=== PATIENT | female | born 1955 | race Caucasian/White ===

== ENCOUNTER 2024-06-16 13:19 | Outpatient (CLI) | payer MEDICARE, SELFPAY ==
--- OUTSIDE RECORDS SUMMARY | 2024-06-16 13:40 | XMS_ITS | Clinical Summary ---
Author Organization [facility] Care Team Providers Care Web Design Instructor Name Role Phone No, Physician Primary Care Provider [phone] Allergies Active Allergy Reactions Criticality Noted Date Comments Clarithromycin Hives Medium 10/15/2020 Iodine Hives Medium 10/15/2020 Oxybutynin Unknown 11/01/2020 Sulfa (Sulfonamide Antibiotics) Anaphylaxis,Unknown High 11/02/2018 Medications ALPRAZolam (XANAX) 1 mg tablet alprazolam 1 mg tablet TAKE 1 TABLET BY MOUTH TWICE DAILY NEEDED 12/14/19 19 Active aspirin 81 mg enteric coated tablet Take 1 tablet every day by oral route. Active dicyclomine (BENTYL) 20 mg tablet dicyclomine 20 mg tablet Take 1 tablet 4 times a day by oral route as directed for 90 days. Active famotidine (PEPCID) 40 mg tablet Take 1 tablet (40 mg total) by mouth daily 05/31/19 21 Active fenofibrate (TRIGLIDE) 160 mg tablet Take 1 tablet (160 mg total) by mouth daily 10/21/19 19 Active fluticasone-umecli din-vilanter (TRELEGY ELLIPTA) 100-62.5-25 mcg inhaler INHALE 1 PUFF BY MOUTH EVERY DAY 12/14/19 19 Active hydrALAZINE (APRESOLINE) 25 mg tablet Take 1 tablet (25 mg total) by mouth 2 (two) times a day 01/20/20 19 Active levothyroxine (SYNTHROID) 75 mcg tablet levothyroxine 75 mcg tablet TAKE 1 TABLET BY MOUTH EVERY DAY 11/10/19 19 Active lisinopriL (PRINIVIL,ZESTRIL) 40 mg tablet lisinopril 40 mg tablet TAKE 1 TABLET BY MOUTH EVERY DAY 11/25/19 19 Active PARoxetine (PAXIL) 40 mg tablet paroxetine 40 mg tablet TAKE 1 TABLET BY MOUTH EVERY DAY 10/21/19 19 Active potassium chloride ER 10 mEq CR tablet Take 1 tablet/capsule (10 mEq total) by mouth 2 (two) times a day 12/07/19 21 Active travoprost (TRAVATAN Z) 0.004 % drops Administer 1 drop into both eyes nightly Active pregabalin (LYRICA) 75 mg capsuleIndications :Left leg pain Take 1 capsule (75 mg total) by mouth 2 (two) times a day 270 capsule 2 12/14/19 Active amLODIPine (NORVASC) 10 mg tablet 03/23/19 24 Active cyclobenzaprine (FLEXERIL) 10 mg tablet 03/23/19 24 Active gabapentin (NEURONTIN) 600 mg tablet 03/23/19 24 Active ibuprofen (ADVIL,MOTRIN) 600 mg tablet 03/23/19 24 Active losartan (COZAAR) 100 mg tablet 03/23/19 24 Active Relistor 150 mg tablet 03/23/19 24 Active ondansetron ODT (ZOFRAN-ODT) 4 mg disintegrating tablet 03/09/19 24 Active oxyCODONE-acetamin ophen (PERCOCET) 7.5-325 mg per tablet 03/17/19 24 Active albuterol HFA (ProAir HFA) 90 mcg/actuation inhalerIndications :COPD with acute exacerbation (HCC) Inhale 2 puffs every 6 (six) hours as needed for wheezing 1 each 01/07/20 24 Active benzonatate (TESSALON) 100 mg capsuleIndications :Cough Take 1 capsule (100 mg total) by mouth 3 (three) times a day as needed for cough 42 capsule 01/07/20 24 Active Active Problems Problem Noted Date Diagnosed Date Left leg pain 12/13/2020 BMI 23.0-23.9, adult 12/13/2020 Screening for colon cancer 12/13/2020 Chronic bilateral low back pain without sciatica 12/13/2020 Overview (12/13/2020): MRI recommends doing Ct of lumbar spine due to possible sacral fracture seen. will order for completion. Spinal stenosis at L4-L5 level 11/04/2020 AARON on CPAP 10/20/2020 Anxiety 04/03/2020 Cardiac arrhythmia 01/19/2019 Neuropathy 12/13/2018 Nicotine dependence with current use 12/13/2018 Glaucoma 10/18/2018 Irritable bowel syndrome with diarrhea 9 Chronic obstructive pulmonary disease 06/15/2018 Hyperlipidemia 06/15/2018 Hypertension 06/15/2018 Hypothyroidism 06/15/2018 Vitamin D deficiency 06/15/2018 History of Hodgkin's lymphoma 07/31/1993 Immunizations Immunization Administration Dates Next Due Hep B Vaccine 02/05/2017,11/28/2016 Influenza, Quadrivalent, Hig h Dose, Preservative Free, Intrr 12/13/2020 Influenza, Quadrivalent, Split, Intramuscular Influenza, Quadrivalent, Spl it, Preservative Free, Intramuscular 12/12/2019,12/13/2014 Influenza, Trivalent, Preservative Free, Intramu scular 02/14/2013 Moderna SARS-CoV-2 Monovalent Vaccination (12+ Y RS) 07/03/2020 Pfizer SARS-CoV-2 Monovalent Vaccination (12+ Yrs) PURPLE 10/15/2020() Pneumococcal Conjugate PCV 13 04/08/2016 Tdap 09/30/2014 Surgical History Surgery Date Site/Laterality Comments ROTATOR CUFF REPAIR CHOLECYSTECTOMY HYSTERECTOMY APPENDECTOMY INNER EAR SURGERY SPINE SURGERY Medical History Medical History Date Comments Hypertension COPD (chronic obstructive pulmonary disease) (HC C) Hypothyroid Glaucoma Family History Medical History Relation Name Comments Cancer Brother young age Father Cancer Mother Hypertension Mother Relation Name Status Comments Brother Father Mother Social History Tobacco Use Types Packs/Day Years Used Date Smoking Tobacco: Every Day Cigarettes 0.5 40 Smokeless Tobacco: Never Tobacco Cessation:Ready to Q uit: Not Asked; Counseling Given: Not Answered Alcohol Use Standard Drinks/Week Comments Not Currently 0 (1 standard drink = 0.6 oz pur e alcohol) AUDIT-C Answer Date Recorded Q1: How often do you have a drink containing alc ohol? Never 12/13/2020 Average Number of Drinks Not on file 021 Q3: How often do you have si x or more drinks on one occasion? Never 12/13/2020 PHQ-2 Answer Date Recorded PHQ-2 Total Score (If total score is 3 or more points, staff should administer the PHQ-9) 0 12/13/2020 Personal Safety Answer Date Recorded Have you ever been in or are you currently in a harmful physical or emotional relationship or is someone making you feel afraid or unsafe? Denies 02/03/2024 Comments Unknown Sex and Gender Information Value Date Recorded Sex Assigned at Not on file Legal Sex Female 7:06 PM MARKET ANALYSIS DIRECTOR Gender Identity Not on file Sexual Orientation Not on file Obstetrics History Last Filed Vital Signs Vital Sign Reading Time Taken Comments Blood Pressure 126/73 02/03/2024 2:00 PM MARKET ANALYSIS DIRECTOR Pulse 79 02/03/2024 2:00 PM MARKET ANALYSIS DIRECTOR Temperature 36.8 C (98.3 F) 02/03/2024 11:22 AM MARKET ANALYSIS DIRECTOR Respiratory Rate 17 02/03/2024 11:2 2 AM MARKET ANALYSIS DIRECTOR Oxygen Saturation 94% 02/03/2024 2:00 PM MARKET ANALYSIS DIRECTOR Inhaled Oxygen Concentration - - Weight 58.5 kg (128 lb 14.4 oz) 01/07/2024 4:14 PM MARKET ANALYSIS DIRECTOR Height 157.5 cm (5' 2.01 ) 01/07/2024 4:14 PM CS T Body Mass Index 23.57 01/07/2024 4:14 PM MARKET ANALYSIS DIRECTOR Plan of Treatment Health Maintenance Due Date Last Done Comments Breast Cancer Screening-Mammogram 1954 Colon Cancer Screening-Colonoscopy 1955 Hepatitis C Screening 1954 Osteoporosis Screening-Bone Density Scan 1954 Zoster Vaccine (1 of 2) 1973 Well Visit 65+ 05/25/2019 Covid-19 Vaccine (2 - Modern a risk series) 07/31/2020 07/03/2020 Depression Screening 12/13/2021 12/13/2020 Fall Risk Assessment 12/13/2021 12/13/2020 Influenza Vaccine (#1) 2023 , 12/12/2019, 11/15/2018, Additional history exists DTaP/Tdap/Td Vaccine (2 - Td or Tdap) 09/30/2024 09/30/2014 Hepatitis B Screening Completed 02/05/2017, 017 Pneumococcal vaccine 65+ Completed 08/13/2022, 08/2016 Insurance [employer]HC MEDICARE ADVANTAGE [facility] Address: [address] [place] [address] [facility] Address: [address] [place] [address] [employer]HC MEDICARE ADVANTAGE Care Teams Web Design Instructor Relationship Specialty Start Date End Date No, Physician PCP - General 02/03/24
--- OUTSIDE RECORDS SUMMARY | 2024-06-16 13:40 | XMS_ITS | Clinical Summary ---
Author Organization [facility] Address [address] [place] [address] Care Team Providers Care Button Riveter Name Role Phone Nola Franklin PALEONTOLOGY TEACHER-BC Primary Care Provider [phone] Nola Franklin PALEONTOLOGY TEACHER-BC Unavailable [phone] Jim White MD Unavailable [phone] Allergies Active Allergy Reactions Criticality Noted Date Comments Clarithromycin Hives Medium 12/20/2018 Iodine Hives 11/02/2018 Sulfa Antibiotics Hives 11/02/2018 Sulfa Antibiotics Anaphylaxis High 05/19/2020 Medications ALPRAZolam 1 MG tablet Take 1 mg by mouth 2 (two) times daily as needed. 0 12/14/19 19 Active baclofen 10 MG tablet Take 10 mg by mouth 3 (three) times a day. 11/11/19 Active fenofibrate 160 MG tablet Take 160 mg by mouth daily. 10/21/19 Active TRELEGY ELLIPTA 100-62.5-25 MCG/INH AEROSOL POWDER, BREATH ACTIVATED Inhale 1 puff into the lungs daily. 12/14/19 Active levothyroxine 75 MCG tablet Take 75 mcg by mouth daily. 11/10/19 Active lisinopril 40 MG tablet Take 40 mg by mouth daily. 3 11/25/19 19 Active oxyCODONE-acetamin ophen 5-325 MG tablet Take 1 tablet by mouth 3 (three) times daily as needed for Pain. 0 12/14/19 Active paroxetine 40 MG tablet Take 40 mg by mouth daily. 10/21/19 Active gabapentin 100 MG capsule Take 300 mg by mouth every morning. Active aspirin EC (ASPIRIN EC) 81 MG tablet Take 81 mg by mouth daily. Active vitamin D2, ergocalciferol, 86480 UNITS capsuleIndications :Tuesdays Take 50,000 Units by mouth weekly. Indications: Tuesdays Active ondansetron 4 MG disintegrating tablet Take 1 tablet (4 mg total) by mouth every 8 (eight) hours as needed for Nausea. 20 tablet 01/17/20 Active hydrALAZINE 25 MG tablet Take 1 tablet by mouth 2 (two) times a day. 01/20/20 Active TRAVATAN Z 0.004 % opthalamic solution INSTILL 1 DROP INTO AFFECTED EYE(S) EVERY EVENING 02/15/20 Active lidocaine (LIDODERM) 5 % Place 1 patch onto the skin daily. Remove & Discard patch within 12 hours or as directed by MD Active gabapentin 300 MG capsule Take 300 mg by mouth every evening. Active dicyclomine 20 MG tablet Take 1 tablet (20 mg total) by mouth every 6 (six) hours as needed (abd pain/cramping). 12 tablet 05/20/19 21 Active potassium chloride CR 10 MEQ Tab CR tablet 04/10/19 21 Active MYRBETRIQ 25 MG 24 hr tablet 03/20/19 21 Active famotidine 40 MG tablet Take 40 mg by mouth daily. 05/31/19 21 Active cetirizine 10 MG tablet Take 10 mg by mouth daily. 08/22/19 20 Active atorvastatin 40 MG tablet Take 1 tablet (40 mg total) by mouth nightly at bedtime. Please call to make an appointment for future refills. 10 tablet 07/18/19 21 Active Diclofenac Sodium 1 % Cream Apply 2 g topically 3 (three) times a day. 120 g 10/10/19 21 Active Active Problems Problem Noted Date Diagnosed Date Acute left lumbar radiculopathy 07/11/2020 Orthostasis 12/21/2018 Syncope 12/20/2018 BLAKE (acute kidney injury) 12/20/2018 Atherosclerosis of aorta Hypertension AARON on CPAP Lymphoma ([facility]/HCC) Family History Medical History Relation Comments Cancer Brother chrondrosarcoma and osteosarcoma of the skull Da ughter motor vehicle accident Father Hypertension Half-sister Cancer Maternal Grandfather Cancer Mother hypertension Mother Alzheimers Paternal Grandfather Diabetes Paternal Grandmother Relation Status Comments Brother Daughter Alive Father (Age 23) Half-sister Alive Maternal Grandfather Mother (Age 62) Paternal Grandfather Paternal Grandmother Alive Social History Tobacco Use Types Packs/Day Years Used Date Smoking Tobacco: Every Day Cigarettes 0.5 40 Smokeless Tobacco: Never Tobacco Cessation:Ready to Q uit: No; Counseling Given: Yes Alcohol Use Standard Drinks/Week Comments No 0 (1 standard drink = 0.6 oz pur e alcohol) AUDIT-C Answer Date Recorded Frequency of Alcohol Consumption Never 11/02/2018 Average Number of Drinks Not on file 019 Frequency of Binge Drinking Not on file 04/2018 PHQ-2 Answer Date Recorded PHQ-2 Score - If the patient scores above 3, please move on to questions 3-9 0 07/11/2020 Comments No Sex and Gender Information Value Date Recorded Sex Assigned at Not on file Legal Sex Female 7:53 PM CDT Gender Identity Not on file Sexual Orientation Not on file Occupation Industry 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 Job 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 Date 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 Not on file Not on file Not on file Last Filed Vital Signs Vital Sign Reading Time Taken Comments Blood Pressure 108/64 10/09/2020 12:20 PM CDT Pulse 76 10/09/2020 12:14 PM CDT Temperature 36.8 C (98.2 F) 10/09/2020 12:20 PM CDT Respiratory Rate 18 10/09/2020 12:14 PM CDT Oxygen Saturation 96% 10/09/2020 12:14 PM CDT Inhaled Oxygen Concentration - - Weight 63.5 kg (140 lb) 10/09/2020 12:14 PM CDT Height 157.5 cm (5' 2 ) 10/09/2020 12:14 PM CDT Body Mass Index 25.61 10/09/2020 12:14 PM CDT Plan of Treatment Health Maintenance Due Date Last Done Comments ASCVD LDL 1954 ASCVD Statin 1954 Colorectal Cancer Screening Colonoscopy (10 Years) 1954 Pneumococcal Vaccine: 50+ Ye ars (1 of 2 - PCV) 1960 Hepatitis C 1972 DTaP, Tdap and Td Vaccines ( 1 - Tdap) 1973 Mammogram Screening 1994 Zoster Vaccines (1 of 2) 2004 Annual Medicare Wellness Visit 05/25/2019 Dexa Scan (General) 05/25/2019 COVID-19 Vaccine (2 2023-2 5 season) 2023 07/18/2020 PHQ-2 (Physician Rincon) 03/02/2024 RSV Immunization or 60+ Years (1 - 1-dose 75+ series) 2029 Meningococcal B Vaccine Aged Out No l onger eligible based on patient's age to complete this topic Meningococcal Vaccine Aged Out No fish zuleyma eligible based on patient's age to complete this topic RSV Immunizations Under 20 Months Aged Out No longer eligible based on patient's age to complete this topic Insurance [facility] Advance Directives * DNR (Latest Code Status on File) Date Activated Date Inactivated Comments 01/15/2019 2:10 AM 01/16/2019 5:50 PM * DNR Date Activated Date Inactivated Comments 12/20/2018 3:14 PM 12/21/2018 7:59 PM Care Teams Button Riveter Relationship Specialty Start Date End Date Nola Franklin FNP- PCP - General NURSE PRACTITIONER 05/19/20 Nola Franklin FNP-BC NURSE PRACTITIONER 05/19/20 Jim White MD [address] [address] [place] Primary Therapist INTERVENTIONAL CARDIOLOGY 02/21/19
--- OUTSIDE RECORDS SUMMARY | 2024-06-16 13:40 | XMS_ITS | Encounter Summary ---
Author Organization [facility] Address [address] [place] [address] Phone Care Team Providers Care Cost Accounting Clerk Name Role Phone RigobertoNola DIVE SUPERINTENDENT Unavailable [phone] Doreen Mejía DIVE SUPERINTENDENT Primary Care Provider [phone] No, Physician Primary Care Provider [phone] Encounter Details Date Type Department Care Team (Late st Contact Info) Description 10/29/2020 Telephone [facility] Oncology [address] [facility] Advanced Medicine 7th [place] [address] [place] [address] Wendy Ng Social History Tobacco Use Types Packs/Day Years Used Date Smoking Tobacco: Every Day Cigarettes Alcohol Use Standard Drinks/Week Comments Not Currently 0 (1 standard drink = 0.6 oz pur e alcohol) Comments Unknown Sex and Gender Information Value Date Recorded Sex Assigned at Not on file Legal Sex Female 7:06 PM PRACTICE ADVISOR Gender Identity Not on file Sexual Orientation Not on file documented as of this encounter Plan of Treatment Not on file documented as of this encounter Visit Diagnoses Not on filedocumented in this encounter Additional Health Concerns Infection Onset Date Last Indicated Resolved Time COVID: Suspected 04/06/2023 04/06/2023 04/06/2023 2:38 PM PRACTICE ADVISOR documented as of this encounter Care Teams Cost Accounting Clerk Relationship Specialty Start Date End Date Doreen Mejía NP [address] [place] [address] PCP - General Internal Medicine 12/05/20 02/02/24 No, Physician PCP - General 02/03/24 Nola Franklin NP [address] [place] [id number] Nurse Practitioner Nurse Practitioner 11/06/20 12/04/20 documented as of this encounter
--- OUTSIDE RECORDS SUMMARY | 2024-06-16 13:40 | XMS_ITS | Encounter Summary ---
Author Organization [facility] Address [facility] [place] [address] Care Team Providers Care Wool Fleece Sorter Name Role Phone Nola Franklin MASS COMMUNICATIONS INSTRUCTOR-BC Primary Care Provider [phone] Nola Franklin MASS COMMUNICATIONS INSTRUCTOR-BC Primary Care Provider [phone] Nola Franklin MASS COMMUNICATIONS INSTRUCTOR-BC Unavailable [phone] Jim White MD Unavailable [phone] Encounter Details Date Type Department Care Team (Late st Contact Info) Description 01/17/2019 Hospital Follow-up Call [facility] [place] [address] Lan Arreola, [place] Social History Tobacco Use Types Packs/Day Years Used Date Smoking Tobacco: Every Day Cigarettes 0.5 40 Smokeless Tobacco: Never Alcohol Use Standard Drinks/Week Comments No 0 (1 standard drink = 0.6 oz pur e alcohol) AUDIT-C Answer Date Recorded Frequency of Alcohol Consumption Never 11/02/2018 Average Number of Drinks Not on file 019 Frequency of Binge Drinking Not on file 04/2018 Comments No Sex and Gender Information Value Date Recorded Sex Assigned at Not on file Legal Sex Female 7:53 PM CDT Gender Identity Not on file Sexual Orientation Not on file Occupation Industry 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 Job End Date 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 Answer Date of Assessment Author Status No 01/15/2019 7:00 AM PACKAGING SALES REPRESENTATIVE Activ e * Do you have serious difficulty walking or climbing stairs? Answer Date of Assessment Author Status No 01/15/2019 7:00 AM Snow Chavez RN Active * Do you have difficulty dressing or bathing? Answer Date of Assessment Author Status No 01/15/2019 7:00 AM Snow Chavez RN Active * Because of a physical, mental, or emotional condition, do you have difficulty doing errands alone such as visiting a doctor's office or shopping? Answer Date of Assessment Author Status No 01/15/2019 7:00 AM Snow Chavez RN Active documented as of this encounter Mental Status * Because of a physical, mental, or emotional condition, do you have serious difficulty concentrating, remembering, or making decisions? Answer Entry Date Author Status No 01/15/2019 7:00 AM Snow Chavez RN Active documented in this encounter Plan of Treatment Not on file documented as of this encounter Visit Diagnoses Not on filedocumented in this encounter Additional Health Concerns Infection Onset Date Last Indicated Resolved Time COVID-19 Rule Out Comment:Tested 4.20.20 Negative 06/20/2019 06/20/2019 06/21/19 20 4:57 PM CDT documented as of this encounter Care Teams Wool Fleece Sorter Relationship Specialty Start Date End Date Nola Franklin MASS COMMUNICATIONS INSTRUCTOR-BC PCP - General NURSE PRACTITIONER 11/02/18 05/18/20 Nola Franklin MASS COMMUNICATIONS INSTRUCTOR-BC PCP - General NURSE PRACTITIONER 05/19/20 Nola Franklin MASS COMMUNICATIONS INSTRUCTOR-BC NURSE PRACTITIONER 05/19/20 Jim White MD [address] [address] [place] Closing Machine Operator INTERVENTIONAL CARDIOLOGY 02/21/19 documented as of this encounter
--- OUTSIDE RECORDS SUMMARY | 2024-06-16 13:40 | XMS_ITS | Referral Summary ---
Author Organization [facility] Care Team Providers Care Insurance Customer Service Specialist Name Role Phone No, Physician Primary Care Provider [phone] Allergies Active Allergy Reactions Criticality Noted Date [...] Pneumococcal Conjugate PCV 13 04/08/2016 Tdap 09/30/2014 Social History Tobacco Use Types Packs/Day Years [...] on file Legal Sex Female 7:06 PM SYNCHRO ASSEMBLER Gender Identity Not on file Sexual Orientation Not on file Last Filed Vital Signs Vital Sign Reading Time Taken Comments Blood Pressure 126/73 02/03/2024 2:00 PM SYNCHRO ASSEMBLER Pulse 79 02/03/2024 2:00 PM SYNCHRO ASSEMBLER Temperature 36.8 C (98.3 F) 02/03/2024 11:22 AM SYNCHRO ASSEMBLER Respiratory Rate 17 02/03/2024 11:2 2 AM SYNCHRO ASSEMBLER Oxygen Saturation 94% 02/03/2024 2:00 PM SYNCHRO ASSEMBLER Inhaled Oxygen Concentration - - Weight 58.5 kg (128 lb 14.4 oz) 01/07/2024 4:14 PM SYNCHRO ASSEMBLER Height 157.5 cm (5' 2.01 ) 01/07/2024 4:14 PM CS T Body Mass Index 23.57 01/07/2024 4:14 PM SYNCHRO ASSEMBLER Plan of Treatment Not on file Insurance [facility] MEDICARE ADVANTAGE [facility] MEDICARE Address: [facility] [address] [place] [id number] [facility] MDCR HMO REF [facility] MEDICARE Address: [address] [address] [place] [address] UHC MEDICARE ADVANTAGE [facility] MEDICARE Address: [address] [address] [place] [address] Care Teams Insurance Customer Service Specialist Relationship Specialty Start Date End Date No, Physician PCP - General 02/03/24
--- OUTSIDE RECORDS SUMMARY | 2024-06-16 13:40 | XMS_ITS | CONTINUITY OF CARE DOCUMENT ---
Author Name lucy ayala Address Unknown Organization [facility] Address [address] [place] [address] Phone [phone] Care Team Providers Care Restoration Silversmith Name Role Phone Telma Kelly MD Unavailable Telma Kelly MD Unavailable [phone] PROBLEMS Condition Status Date Provider Notes AARON--on cpap active Gen Hilario Tobacco abuse active Gen Ahmedzai COPD active Gen Ahmedzai Hyperlipidemia active Gen Ahmedzai Hypertension active Gen Ahmedzai Hypothyroidism active Gen Ahmedzai History of Hodgkins lymphoma active Gen Russo medzai ENCOUNTERS Date Type Provider Location Encounter Diag nosis 08/31 - 08/31 In-person encounter Office Visit Telma Kelly MD [place] [facility] AARON--on cpapTobacco abuseCOPDHyperlipidemiaHypertensionHypothyroidismHis tory of Hodgkins lymphoma INSURANCE PROVIDERS Payer name Policy type / Coverage type [place] red republican ID [employer] Other [facility] COMPLETE CARE [id number] (PPO C-SNP) Commercial insurance company [id number] [facility] MEDICARE COMPLETE HMO Other [id number]
[2024-06-16 14:04] LABS: Hematocrit 32.2 % (37.0-47.0); Hemoglobin 10.1 g/dL (12.0-15.0); Mean Corpuscular HGB Conc 31.4 g/dl (32-36); Mean Corpuscular Hemoglobin 29.9 pg (26-34); Mean Corpuscular Volume 95.3 fl (80-100); Mean Platelet Volume 8.8 fl (7.4-10.4); Platelet Count Result 366 k/mm3 (150-375); Red Blood Count 3.38 M/mm3 (4.2-5.4); Red Cell Distribution Width 12.8 % (11.5-14.5); White Blood Count 6.3 K/mm3 (4.5-10.0)
[2024-06-16 14:30] LABS: Alanine Aminotransferase 14 U/L (6-35); Albumin Level 3.6 g/dL (3.5-5.1); Alkaline Phosphatase 79 U/L (38-126); Anion Gap 3 mmol/L (4-12); Aspartate Amino Transferase 21 U/L (14-36); Bilirubin,Total 0.2 mg/dL (0.2-1.3); Blood Urea Nitrogen 15 mg/dL (7-17); Calcium 9.1 mg/dL (8.4-10.2); Carbon Dioxide 28 mmol/L (22-30); Chloride 108 mmol/L (98-107); Cholesterol 172 mg/dL (0-200); Estimated Glomerular Filt Rate 54; Glucose 91 mg/dL (65-110); HDL Direct 46 mg/dL; Potassium 3.9 mmol/L (3.4-5.0); Sodium 139 mmol/L (137-145); Triglycerides 152 mg/dL (<150)
[2024-06-16 14:41] LABS: LDL Cholesterol Direct 83 mg/dL
[2024-06-16 14:44] LABS: Free T4 Free Thyroxine 0.95 ng/dL (0.78-2.19)
[2024-06-16 15:00] LABS: Thyroid Stimulating Hormone < 0.015 uIU/mL (0.465-4.680)
== END 2024-06-16 13:20 | disposition home or self-care (01) ==
LOC: ANHLAB 13:21
PROVIDERS: PCP Family Medicine; Visit Provider Family Medicine
DX: E07.9 Disorder of thyroid, unspecified (principal); I10 Essential (primary) hypertension; E78.5 Hyperlipidemia, unspecified; Z79.899 Other long term (current) drug therapy
CPT/HCPCS: 36415; 80053; 80061; 84439; 84443; 85027

== ENCOUNTER 2024-06-30 14:35 | Outpatient (CLI) | payer MEDICARE, MEDICAID, SELFPAY ==
--- OUTSIDE RECORDS SUMMARY | 2024-06-30 15:18 | XMS_ITS | CONTINUITY OF CARE DOCUMENT ---
Author Name lucy ayala Address Unknown Organization [facility] Address [address] [place] [address] Phone [phone] Care Team Providers Care Barbering Teacher Name Role Phone Telma Kelly MD Unavailable Telma Kelly MD Unavailable [phone] PROBLEMS Condition Status Date Provider Notes History of Hodgkins lymphoma active Gen Ah medzai Hypothyroidism active Gen Ahmedzai Hypertension active Gen Ahmedzai Hyperlipidemia active Gen Ahmedzai COPD active Gen Ahmedzai Tobacco abuse active Gen Ahana rosazai AARON--on cpap active Gen Hilario ENCOUNTERS Date Type Provider Location Encounter Diag nosis 08/31 - 08/31 In-person encounter Office Visit Telma Kelly MD [place] [facility] AARON--on cpapTobacco abuseCOPDHyperlipidemiaHypertensionHypothyroidismHis tory of Hodgkins lymphoma INSURANCE PROVIDERS Payer name Policy type / Coverage type [place] red republican ID [employer] Other [facility] COMPLETE CARE [id number] (PPO C-SNP) Commercial insurance company [id number] [facility] MEDICARE COMPLETE HMO Other [id number]
--- OUTSIDE RECORDS SUMMARY | 2024-06-30 15:18 | XMS_ITS | Encounter Summary ---
Author Organization [facility] Address [address] [place] [address] Phone Care Team Providers Care Computer Systems Architect Name Role Phone RigobertoNola CRANE OILER Unavailable Doreen Mejía CRANE OILER Primary Care Provider [phone] No, Physician Primary Care Provider [phone] Encounter Details Date Type Department Care Team (Late st Contact Info) Description 10/29/2020 Telephone [facility] Oncology [address] [place] [address] [place] [address] Wendy Ng Social History Tobacco Use Types Packs/Day Years Used Date Smoking Tobacco: Every Day Cigarettes Alcohol Use Standard Drinks/Week Comments Not Currently 0 (1 standard drink = 0.6 oz pur e alcohol) Comments Unknown Sex and Gender Information Value Date Recorded Sex Assigned at Not on file Legal Sex Female 7:06 PM BOOSTER PUMP OPERATOR Gender Identity Not on file Sexual Orientation Not on file documented as of this encounter Plan of Treatment Not on file documented as of this encounter Visit Diagnoses Not on filedocumented in this encounter Additional Health Concerns Infection Onset Date Last Indicated Resolved Time COVID: Suspected 04/06/2023 04/06/2023 04/06/2023 2:38 PM BOOSTER PUMP OPERATOR documented as of this encounter Care Teams Computer Systems Architect Relationship Specialty Start Date End Date Doreen Mejía NP [address] [place] [address] PCP - General Internal Medicine 12/05/20 02/02/24 No, Physician PCP - General 02/03/24 Nola Franklin NP [address] [place] [id number] Nurse Practitioner Nurse Practitioner 11/06/20 12/04/20 documented as of this encounter
--- OUTSIDE RECORDS SUMMARY | 2024-06-30 15:18 | XMS_ITS | Referral Summary ---
Author Organization [facility] Care Team Providers Care Manager Transfer Name Role Phone No, Physician Primary Care Provider [phone] Allergies Active Allergy Reactions Criticality Noted Date [...] on file Legal Sex Female 7:06 PM BOTTLE CASER Gender Identity Not on file Sexual Orientation Not on file Last Filed Vital Signs Vital Sign Reading Time Taken Comments Blood Pressure 126/73 02/03/2024 2:00 PM BOTTLE CASER Pulse 79 02/03/2024 2:00 PM BOTTLE CASER Temperature 36.8 C (98.3 F) 02/03/2024 11:22 AM BOTTLE CASER Respiratory Rate 17 02/03/2024 11:2 2 AM BOTTLE CASER Oxygen Saturation 94% 02/03/2024 2:00 PM BOTTLE CASER Inhaled Oxygen Concentration - - Weight 58.5 kg (128 lb 14.4 oz) 01/07/2024 4:14 PM BOTTLE CASER Height 157.5 cm (5' 2.01 ) 01/07/2024 4:14 PM CS T Body Mass Index 23.57 01/07/2024 4:14 PM BOTTLE CASER Plan of Treatment Not on file Insurance [place] MEDICARE ADVANTAGE [place] HMO REF [employer] MEDICARE ADVANTAGE Care Teams Manager Transfer Relationship Specialty Start Date End Date No, Physician PCP - General 02/03/24
--- OUTSIDE RECORDS SUMMARY | 2024-06-30 15:18 | XMS_ITS | Clinical Summary ---
Author Organization [facility] HealthCare Care Team Providers Care Telecom Sales Consultant Name Role Phone No, Physician Primary Care Provider [phone] Allergies Active Allergy Reactions Criticality Noted Date [...] on file Legal Sex Female 7:06 PM CASE INVESTIGATOR Gender Identity Not on file Sexual Orientation Not on file Obstetrics History Last Filed Vital Signs Vital Sign Reading Time Taken Comments Blood Pressure 126/73 02/03/2024 2:00 PM CASE INVESTIGATOR Pulse 79 02/03/2024 2:00 PM CASE INVESTIGATOR Temperature 36.8 C (98.3 F) 02/03/2024 11:22 AM CASE INVESTIGATOR Respiratory Rate 17 02/03/2024 11:2 2 AM CASE INVESTIGATOR Oxygen Saturation 94% 02/03/2024 2:00 PM CASE INVESTIGATOR Inhaled Oxygen Concentration - - Weight 58.5 kg (128 lb 14.4 oz) 01/07/2024 4:14 PM CASE INVESTIGATOR Height 157.5 cm (5' 2.01 ) 01/07/2024 4:14 PM CS T Body Mass Index 23.57 01/07/2024 4:14 PM CASE INVESTIGATOR Plan of Treatment Health Maintenance Due Date [...] Completed 08/13/2022, 08/2016 Insurance UHC MEDICARE ADVANTAGE [facility] MEDICARE Address: [address] [place] [address] [facility] HMO REF [facility] MEDICARE Address: [address] [place] [address] [place] [address] Care Teams Telecom Sales Consultant Relationship Specialty Start Date End Date No, Physician PCP - General 02/03/24
--- OUTSIDE RECORDS SUMMARY | 2024-06-30 15:18 | XMS_ITS | Encounter Summary ---
Author Organization [facility] Address [address] [place] [address] Care Team Providers Care Nuclear Reactor Operator Name Role Phone oNla Franklin SAW STRAIGHTENER-BC Primary Care Provider [phone] Rigoberto Crystal L SAW STRAIGHTENER-BC Primary Care Provider [phone] Rigoberto Crystal L SAW STRAIGHTENER-BC Unavailable [phone] Jim White MD Unavailable [phone] Joan Rojas DO Primary Care Provider [phone] Encounter Details Date Type Department Care Team (Late st Contact Info) Description 01/17/2019 Hospital Follow-up Call [facility] Clinical Decision Unit [place], [place] [id number] Lan Arreola, [place] Social History Tobacco Use Types Packs/Day Years [...] Information Value Date Recorded Sex Assigned at Female 06/19/2024 7:18 PM CDT Legal Sex Female 7:53 PM CDT Gender Identity Not on file Sexual Orientation Not on file Occupation Industry 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 Answer Date of Assessment Author Status No 01/15/2019 7:00 AM REPLANTING MACHINE OPERATOR Activ e * Do you have serious [...] documented as of this encounter Care Teams Nuclear Reactor Operator Relationship Specialty Start Date End Date Nola Franklin FNP-BC PCP - General NURSE PRACTITIONER 11/02/18 05/18/20 Nola Franklin FNP-BC PCP - General NURSE PRACTITIONER 05/19/20 06/20/24 Joan Rojas DO [address] [place] [address] [place] [address] PCP - General FAMILY PRACTICE 06/21/24 Nola Franklin, [facility]- NURSE PRACTITIONER 05/19/20 Jim White MD [address] [place] [address] [place] Battery Technician INTERVENTIONAL CARDIOLOGY 02/21/19 documented as of this encounter
--- OUTSIDE RECORDS SUMMARY | 2024-06-30 15:19 | XMS_ITS | Clinical Summary ---
Author Organization [facility] Address [address] [place] [address] Care Team Providers Care Senior Java Software Engineer Name Role Phone Nola Franklin TRAFFIC ASSISTANT-BC Unavailable [phone] Jim White MD Unavailable [phone] Joan Rojas DO Primary Care Provider [phone] Allergies Active Allergy Reactions Criticality Noted Date Comments Clarithromycin Hives Medium 12/20/2018 Prochlorperazine Hives 06/19/2024 Iodine Hives 11/02/2018 Sulfa Antibiotics Hives 11/02/2018 Sulfa Antibiotics Anaphylaxis High 05/19/2020 Medications TRELEGY ELLIPTA 100-62.5-25 MCG/INH AEROSOL POWDER, BREATH ACTIVATED Inhale 1 puff into the lungs daily. Active levothyroxine 75 MCG tablet Take 1 tablet (75 mcg total) by mouth daily. Active paroxetine 40 MG tablet Take 1 tablet (40 mg total) by mouth daily. Active ondansetron 4 MG disintegrating tablet Take 1 tablet (4 mg total) by mouth every 8 (eight) hours as needed for Nausea. 20 tablet Active TRAVATAN Z 0.004 % opthalamic solution INSTILL 1 DROP INTO AFFECTED EYE(S) EVERY EVENING Active lidocaine (LIDODERM) 5 % Place 1 patch onto the skin daily. Remove & Discard patch within 12 hours or as directed by MD. Applies to lower back, legs, or feet Active propranolol (INDERAL) 10 MG tablet Take 1 tablet (10 mg total) by mouth 3 (three) times daily as needed (tremors). Active oxyCODONE-acetami nophen (PERCOCET) 7.5-325 MG tablet Take 1 tablet by mouth 3 (three) times daily as needed for Pain. Active albuterol sulfate HFA 108 (90 Base) MCG/ACT inhaler Inhale 2 puffs into the lungs every 6 (six) hours as needed for Wheezing. Active gabapentin (NEURONTIN) 600 MG tablet Take 1 tablet (600 mg total) by mouth 3 (three) times daily. Active atorvastatin (LIPITOR) 80 MG tablet Take 1 tablet (80 mg total) by mouth nightly at bedtime. Active amLODIPine (NORVASC) 10 MG tablet Take 1 tablet (10 mg total) by mouth daily. Active losartan (COZAAR) 100 MG tablet Take 1 tablet (100 mg total) by mouth daily. Active pantoprazole EC (PROTONIX) 40 MG tablet Take 1 tablet (40 mg total) by mouth daily. Active ALPRAZolam 1 MG tablet Take 1 mg by mouth 2 (two) times daily as needed. 0 019 2024 Discontinued baclofen 10 MG tablet Take 10 mg by mouth 3 (three) times a day. 019 2024 Discontinued fenofibrate 160 MG tablet Take 160 mg by mouth daily. 019 2024 Discontinued lisinopril 40 MG tablet Take 40 mg by mouth daily. 3 019 2024 Discontinued oxyCODONE-acetami nophen 5-325 MG tablet Take 1 tablet by mouth 3 (three) times daily as needed for Pain. 0 019 2024 Discontinued gabapentin 100 MG capsule Take 3 capsules (300 mg total) by mouth every morning. 2024 Discontinued aspirin EC (ASPIRIN EC) 81 MG tablet Take 1 tablet (81 mg total) by mouth daily. 2024 Discontinued(S top Taking at Discharge) vitamin D2, ergocalciferol, 06587 UNITS capsuleIndication s:Tuesdays Take 50,000 Units by mouth weekly. Indications: Tuesdays Discontinued hydrALAZINE 25 MG tablet Take 1 tablet by mouth 2 (two) times a day. 2024 Discontinued gabapentin 300 MG capsule Take 300 mg by mouth every evening. 2024 Discontinued dicyclomine 20 MG tablet Take 1 tablet (20 mg total) by mouth every 6 (six) hours as needed (abd pain/cramping) . 12 tablet 021 2024 Discontinued(E rror) potassium chloride CR 10 MEQ Tab CR tablet 2024 Discontinued MYRBETRIQ 25 MG 24 hr tablet 2024 Discontinued(E rror) famotidine 40 MG tablet Take 40 mg by mouth daily. 021 2024 Discontinued cetirizine 10 MG tablet Take 10 mg by mouth daily. 020 2024 Discontinued atorvastatin 40 MG tablet Take 1 tablet (40 mg total) by mouth nightly at bedtime. Please call to make an appointment for future refills. 10 tablet 021 2024 Discontinued(E rror) Diclofenac Sodium 1 % Cream Apply 2 g topically 3 (three) times a day. 120 g 021 2024 Discontinued(E rror) cyclobenzaprine (FLEXERIL) 10 MG tablet Take 1 tablet (10 mg total) by mouth 2 (two) times daily as needed for Muscle Spasms. 2024 Discontinued(S top Taking at Discharge) cefdinir (OMNICEF) 300 MG Cap capsule Take 1 capsule (300 mg total) by mouth 2 (two) times daily for 5 days. 10 capsule 025 2024 Active Problems Problem Noted Date Diagnosed Date Fall 06/19/2024 Acute left lumbar radiculopathy 07/11/2020 Orthostasis 12/21/2018 Syncope 12/20/2018 BLAKE (acute kidney injury) 12/20/2018 Atherosclerosis of aorta Hypertension AARON on CPAP Lymphoma ([facility]) Encounters Date Type Department Care Team Description 06/23/2024 9:00 AM CDT Home Care Visit [facility] Home Care [address] [place] [address] [place] [address] Sharron Sanders RN SN NON ADMIT SOC 06/19/2024 7:17 PM CDT - 06/20/2024 2:16 PM CDT Hospital Encounter [facility] Medical/Surgical [address] [place] [address] Brianna Osman MD Verma, Seema, MD Engele, Christopher, APRN Fall (Patient arrived to ED with complaints of head pain and right rib pain after falling down two steps. Patient unsure if she lost consciousness.) Discharge Disposition: Home with Home Health Care 06/19/2024 Travel from Last 3 Months Family History Medical History Relation Comments Cancer [...] drink = 0.6 oz pur e alcohol) [facility] Utilities Answer Date Recorded In the past 12 months has e [email or web address] gas, oil, or water JOOR threatened to shut off services in your home? No 06/19/2024 Humiliation, Afraid, Rape, and Kick questionnair e Answer Date Recorded Within the last year, have y ou been afraid of your partner or ex-partner? No 06/19/2024 Within the last year, have y ou been humiliated or emotionally abused in other ways by your partner or ex-partner? No Within the last year, have y ou been kicked, hit, slapped, or otherwise physically hurt by your partner or ex-partner? No 06/19/2024 Within the last year, have y ou been raped or forced to have any kind of sexual activity by your partner or ex-partner? No 06/19/2024 AUDIT-C Answer Date Recorded Frequency of Alcohol Consumption Never 11/02/2018 Average Number of Drinks Not on file 019 Frequency of Binge Drinking Not on file 04/2018 Overall Financial Resource Strain (CARDIA) Answe r Date Recorded How hard is it for you to pa y for the very basics like food, housing, medical care, and heating? Not hard at all 06/19/2024 PHQ-2 Answer Date Recorded PHQ-2 Score - If the patient scores above 3, please move on to questions 3-9 0 07/11/2020 Hunger Vital Sign Answer Date Recorded Within the past 12 months, y ou worried that your food would run out before you got the money to buy more. Never true 06/20/19 25 Within the past 12 months, t he food you bought just didn't last and you didn't have money to get more. Never true 06/19/2024 PRAPARE - Transportation Answer Date Re corded In the past 12 months, has l ack of transportation kept you from medical appointments or from getting medications? No 06/01 In the past 12 months, has l ack of transportation kept you from meetings, work, or from getting things needed for daily living? No 06/19/2024 Housing Stability Vital Sign Answer Gabe e Recorded In the last 12 months, was t here a time when you were not able to pay the mortgage or rent on time? No 06/19/2024 In the past 12 months, how m any times have you moved where you were living? 0 06/19/2024 At any time in the past 12 m [facility], were you homeless or living in a residential (including now)? 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 Not on file Not on file Not on file Last Filed Vital Signs Vital Sign Reading Time Taken Comments Blood Pressure 141/87 06/20/2024 11:27 AM CDT Pulse 83 06/20/2024 11:27 AM CDT Temperature 37.1 C (98.7 F) 06/20/2024 11:27 AM CDT Respiratory Rate 18 06/20/2024 11:2 7 AM CDT Oxygen Saturation 98% 06/20/2024 11: 27 AM CDT Inhaled Oxygen Concentration - - Weight 61.6 kg (135 lb 12.8 oz) 025 11:16 PM CDT Height 157.5 cm (5' 2 ) 06/19/2024 11:1 6 PM CDT Body Mass Index 24.84 06/19/2024 11:16 PM CDT Plan of Treatment Health Maintenance Due Date Last Done Comments ASCVD LDL 1954 Colorectal Cancer Screening Colonoscopy (10 Years) 1954 Hepatitis C 1972 Mammogram Screening 1994 Zoster Vaccines (1 of 2) 2004 Pneumococcal Vaccine: 50+ Years (2 of 2 - PPSV23) 06/03/2016 04/08/2016 Annual Medicare Wellness Visit 05/25/2019 Dexa Scan (General) 05/25/2019 COVID-19 Vaccine (3 - 2023-2 5 season) 2023 07/18/2020, 07/03/2020 PHQ-2 (Physician [place]) 03/02/2024 DTaP, Tdap and Td Vaccines ( 2 - Td or Tdap) 09/30/2024 09/30/2014 RSV Immunization or 60+ Years (1 - 1-dose 75+ series) 2029 Meningococcal B Vaccine Aged Out No l onger eligible based on patient's age to complete this topic Meningococcal Vaccine Aged Out No fish zuleyma eligible based on patient's age to complete this topic RSV Immunizations Under 20 Months Aged Out No longer eligible b ased on patient's age to complete this topic Procedures Procedure Name Priority Date/Time Associated Diagnosis Comments CT HEAD WO CON STAT 06/20/2024 12:02 PM CDT TSH W/REFLEX Routine 06/20/2024 4:25 AM CDT TROPONIN, QUANT TIMED 06/20/2024 4:25 AM CDT MAGNESIUM Routine 06/20/2024 4:25 AM CDT COMPREHENSIVE METABOLIC PANEL Routine 06/20/2024 4:25 AM CDT CBC W/DIFF AUTOMATED Routine 06/20/2024 4:[address] HEAD WO CON STAT 06/20/2024 3:20 AM CDT TROPONIN, QUANT TIMED 06/19/2024 11:50 PM CDT TRANSFUSE PLATELET PHERESIS STAT 06/19/2024 10:54 PM CDT TYPE & SCREEN STAT 06/19/2024 9:[address] CHEST+ABD+PEL W CON STAT 8:51 PM CDT ORDER PLATELET PHERESIS STAT 06/19/2024 8:50 PM CDT HC URINALYSIS AUTO W/O MICRO STAT 06/19/2024 8:45 PM CDT ECG 12-LEAD STAT 06/19/2024 7:[address] CERV SPINE WO CON STAT 06/19/2024 7:[address] HEAD WO CON STAT 06/19/2024 7:38 PM CDT TROPONIN, QUANT STAT 06/19/2024 7:30 PM CDT COMPREHENSIVE METABOLIC PANEL STAT 06/19/2024 7:30 PM CDT CBC W/DIFF AUTOMATED STAT 06/19/2024 7:30 PM CDT from Last 3 Months Results * CT HEAD WO CON (06/20/2024 12:02 PM CDT) Only the most recent of3 resultswithin the time period is included. Anatomical Region Laterality Modality Head Computed Tomogra phy 06/20/2024 12:1 6 PM CDT Impressions 06/20/2024 12:28 PM CDT IMPRESSION: 1. Grossly stable ill-defined subcentimeter focus of probable intraparenchymal hemorrhage near the left caudate. No appreciable new hemorrhage, midline shift, or hydrocephalus. 2. Atherosclerosis with changes of advanced chronic small vessel disease. Ordered By: KENNEDY TAMAYO Interpreted By: Nikko West, 06/20/2024 12:16 PM Narrative 06/20/2024 12:28 PM CDT [facility] [address] [place] [address] EXAMINATION: CT HEAD WO [facility] INDICATIONS: TIMED FOLLOW-UP OF PRIOR ABNORMAL CT HEAD, NSGY RECOMMENDS 0300 AND 1200 COMPARISON: Multiple prior CT examinations of the head dating back to 12/20/2018, the most recent of 06/21/2019 at 0305 and 06/19/2024 at 1921. TECHNIQUE: Contiguous unenhanced axial CT images through the head with coronal and sagittal reformats. A dose lowering technique was used for this procedure, which may include, but is not limited to, dose reduction technique, automated exposure control, the use of iterative reconstruction, and ALARA (As Low As Reasonably Achievable) / Image Gently techniques. FINDINGS: Redemonstration of an ill-defined 4-5 mm focus of parenchymal hyperattenuation superolaterally at the left caudate head. Punctate probable senescent calcifications within the basal ganglia bilaterally. No appreciable new focus of intracranial hemorrhage, midline shift, or appreciable sulcal effacement. Extensive periventricular and subcortical white matter hypoattenuation with grossly stable ill-defined hypoattenuation adjacent to the left caudate likely vasogenic edema. The ventricles are symmetric and the basilar cisterns are patent. Mild atherosclerotic calcification of the internal carotid arteries. No hyperdense arterial sign. Diffuse osseous demineralization. Prior right mastoidectomy changes. The orbits are grossly intact and the periorbital soft tissues are clear. The visualized paranasal sinuses and mastoid air cells are well pneumatized without air-fluid level or inflammatory debris. No scalp hematoma, radiodense foreign body, or calvarial fracture. Procedure Note Nikko West MD - 06/20/2024 [facility] [address] [facility] [place] [address] EXAMINATION: CT HEAD WO CON INDICATIONS: TIMED FOLLOW-UP OF PRIOR ABNORMAL CT HEAD, NSGY [id number] AND [address] COMPARISON: Multiple prior CT examinations of the head dating back to12/20/2018, the most recent of 06/21/2019 at 0305 and 06/19/2024 at 1921. TECHNIQUE: Contiguous unenhanced axial CT images through the head withcoronal and sagittal reformats. A dose lowering technique was used for this procedure, which may include,but is not limited to, dose reduction technique, automated exposurecontrol, the use of iterative reconstruction, and ALARA (As Low AsReasonably Achievable) / Image Gently techniques. FINDINGS: Redemonstration of an ill-defined 4-5 mm focus of parenchymalhyperattenuation superolaterally at the left caudate head. Punctateprobable senescent calcifications within the basal ganglia bilaterally. No appreciable new focus of intracranial hemorrhage, midline shift, orappreciable sulcal effacement. Extensive periventricular and subcortical white matter hypoattenuationwith grossly stable ill-defined hypoattenuation adjacent to the leftcaudate likely vasogenic edema. The ventricles are symmetric and the basilar cisterns are patent. Mild atherosclerotic calcification of the internal carotid arteries. No hyperdense arterial sign. Diffuse osseous demineralization. Prior right mastoidectomy changes. The orbits are grossly intact and the periorbital soft tissues areclear. The visualized paranasal sinuses and mastoid air cells are wellpneumatized without air-fluid level or inflammatory debris. No scalp hematoma, radiodense foreign body, or calvarial fracture. IMPRESSION: 1. Grossly stable ill-defined subcentimeter focus of probableintraparenchymal hemorrhage near the left caudate. No appreciable newhemorrhage, midline shift, or hydrocephalus. 2. Atherosclerosis with changes of advanced chronic small vesseldisease. Ordered By: KENNEDY TAMAYO Interpreted By: Nikko West, 06/20/2024 12:16 PM us Kennedy Tamayo MD CT Final Result * TSH W/REFLEX (06/20/2024 4:25 AM CDT) TSH 2.935 0.358 - 3.74 uIU/ML 06/20/2024 5:41 AM CDT [facility] Comment: HIGH DOSES OF BIOTIN MAY INTERFERE WITH THIS TEST RESULT. CORRELATION TO CLINICAL HISTORY AND PRESENTATION RECOMMENDED. FREE T4 NOT INDICATED 06/20/2024 4:25 AM CDT us Kennedy Tamayo MD LABORATORY Final Result [facility] [address] [place] [address], [place] [phone] * (ABNORMAL) COMPREHENSIVE METABOLIC PANEL (06/20/2024 4:25 AM CDT) Only the most recent of2 resultswithin the time period is included. Pathologist [facility] GLUCOSE 98 70 - 99 MG/DL 06/20/2024 5:41 AM CDT [facility] BUN 10 7 - 18 MG/DL 06/20/2024 5:41 AM CDT [facility] CREATININE S/P/B 1.06(H) 0.55 - 1.02 MG/DL 06/20/2024 5:41 AM CDT [facility] SODIUM S/P/B 144 136 - 145 MMOL/L 06/20/2024 5:41 AM CDT [facility] POTASSIUM S/P/B 3.2(L) 3.5 - 5.1 MMOL/L 06/20/2024 5:41 AM CDT [facility] CHLORIDE S/P/B 107 100 - 108 MMOL/L 06/20/2024 5:41 AM CDT [facility] CO2 28.3 21 - 32 MMOL/L 06/20/2024 5:41 AM [facility] CALCIUM S/P/B 8.7 8.5 - 10.1 MG/DL 06/20/2024 5:41 AM [facility] BILIRUBIN TOTAL S/P/B 0.1(L) 0.2 - 1.2 MG/DL 06/20/2024 5:41 AM [facility] Comment: THIS ASSAY IS NOT RECOMMENDED FOR PATIENTS UNDERGOING TREATMENT WITH ELTROMBOPAG DUE TO THE POTENTIAL FOR FALSELY ELEVATED RESULTS. TOTAL PROTEIN S/P/B 5.8(L) 6.4 - 8.2 G/DL 06/20/2024 5:41 AM [facility] ALBUMIN S/P/B 2.9(L) 3.4 - 5.0 G/DL 06/20/2024 5:41 AM [facility] AST 13(L) 15 - 37 U/L 06/20/2024 5:41 AM [facility] ALT 21 14 - 55 U/L 06/20/2024 5:41 AM [facility] ALKALINE PHOSPHATASE S/P/B 84 50 - 136 U/L 06/20/2024 5:41 AM [facility] ANION GAP 8.7 5 - 15 MMOL/L 06/20/2024 5:41 AM [facility] BUN CREATININE RATIO 9.4 6 - 26 06/20/2024 5:41 AM [facility] A/G RATIO 1.0 1.0 - 2.0 RATIO 06/20/2024 5:41 AM [facility] GFR ESTIMATE 57(L) >90 ML/MIN/1.7 3 M2 06/20/2024 5:41 AM [facility] Comment: NOTE: eGFR is not calculated for patients <18 years of age. This is an estimated GFR calculation using the new CKD EPI creatinine equation without race and so does not require a correction factor for race. This estimated GFR should not be used for calculating drug doses. 06/20/2024 4:25 AM CDT us Kennedy Tamayo MD LABORATORY Final Result Performing Organization Address City/[facility] Co de Phone Number [facility] [address] [place] [address], [place] [phone] * TROPONIN, QUANT (06/20/2024 4:25 AM CDT) Only the most recent of3 resultswithin the time period is included. TROPONIN I HIGH SENSITIVITY 13 0 - 54 ng/L 06/20/2024 5:41 AM CDT [facility] Comment: HIGH DOSES OF BIOTIN, TROPONIN-SPECIFIC AUTOANTIBODIES, AND ANTIBODY THERAPY CONTAINING HAMA MAY INTERFERE WITH THIS TEST RESULT. CORRELATION TO CLINICAL HISTORY AND PRESENTATION RECOMMENDED. 06/20/2024 4:25 AM CDT us Kennedy Tamayo MD LABORATORY Final Result Performing Organization Address [facility] Co de Phone Number [facility] [address] [place] [address], [place] [phone] * MAGNESIUM (06/20/2024 4:25 AM CDT) Pathologist [facility] MAGNESIUM 1.8 1.8 - 2.4 MG/DL 06/20/2024 5:41 AM CDT [facility] 06/20/2024 4:25 AM CDT us Kennedy Tamayo MD LABORATORY Final Result Performing Organization Address City/[facility] Co de Phone Number [facility] [address] [place] [address], [place] [phone] * (ABNORMAL) CBC W/DIFF AUTOMATED (06/20/2024 4:24 AM CDT) Only the most recent of2 resultswithin the time period is included. [facility] Signature WBC 7.05 4.50 - 11.00 x10'3/uL 06/20/2024 5:04 AM CDT [facility] RBC 3.39(L) 4.20 - 5.40 x10'6/uL 06/20/2024 5:04 AM CDT [facility] HGB 10.0(L) 12.0 - 16.0 G/DL 06/20/2024 5:04 AM T [facility] HCT 31.7(L) 38.0 - 48.0 % 06/20/2024 5:04 AM CDT [facility] MCV 93.5 81.0 - 99.0 FL 06/20/2024 5:04 AM CDT [facility] MCH 29.5 27.0 - 31.0 PG 06/20/2024 5:04 AM T [facility] MCHC 31.5(L) 32.0 - 36.0 G/DL 06/20/2024 5:04 AM T [facility] RDW 12.9 11.5 - 14.5 % 06/20/2024 5:04 AM T [facility] PLT 389 130 - 400 x10'3/uL 06/20/2024 5:04 AM T [facility] MPV 9.0(L) 9.3 - 12.2 FL 06/20/2024 5:04 AM T [facility] CBC COMMENT AUTOMATED RBC MORPHOLOGY AND PLATELET EVALUATION NORMAL 06/20/2024 5:04 AM CDT [facility] NEUTROPHILS % 57.7 % 06/20/2024 5:04 AM T [facility] LYMPHOCYTES % 26.0 % 06/20/2024 5:04 AM CDT [facility] MONOCYTES % 11.6 % 06/20/2024 5:04 AM T [facility] EOSINOPHILS 3.7 % 06/20/2024 5:04 AM CDT [facility] BASOPHILS 0.7 % 06/20/2024 5:04 AM T [facility] IMMATURE GRANS % 0.3 % 06/21/19 5:04 AM CDT [facility] NRBC % 0.0 % 06/20/2024 5:04 AM T [facility] ABS. NEUTROPHILS TOTAL 4.07 1.80 - 7.70 x10'3/uL 06/20/2024 5:04 AM T [facility] ABS. LYMPHOCYTES 1.83 1.00 - 4.80 x10'3/uL 06/20/2024 5:04 AM T [facility] ABS. MONOCYTES 0.82 0.24 - 0.86 x10'3/uL 06/20/2024 5:04 AM T [facility] ABS. EOSINOPHILS 0.26 0.04 - 0.36 x10'3/uL 06/20/2024 5:04 AM T [facility] ABS. BASOPHILS 0.05 0.01 - 0.08 x10'3/uL 06/20/2024 5:04 AM T [facility] ABS. IMMATURE GRANULOCYTES 0.02 0.00 - 0.49 x10'3/uL 06/20/2024 5:04 AM [facility] ABS. NUCLEATED RBC'S 0.00 0.00 - 0.01 x10'3/uL 06/20/2024 5:04 AM T [facility] 06/20/2024 4:24 AM CDT us Kennedy Tamayo MD LABORATORY Final Result [facility] [address] [place] [address], [place] [phone] * TRANSFUSE PLATELET PHERESIS (06/20/2024 12:05 AM CDT) Brianna Osman MD NURSING TREATMENT ORD ERABLES - BLOOD ADMIN Final Result * TYPE & SCREEN (06/19/2024 9:49 PM CDT) ABO/RH A POSITIVE 06/19/2024 10:43 PM CDT [facility] ANTIBODY SCREEN NEGATIVE 06/19/2024 10:43 PM CDT [facility] SAMPLE EXPIRATION 06/22/2024,2 359 06/19/2024 10:01 PM CDT [facility] 06/19/2024 9:49 PM CDT Brianna Osman MD BLOOD BANK TEST ORDER GILDA Final Result Performing Organization Address [facility] Co de Phone Number [facility] [address] [place] [address], [place] [phone] * CT CHEST+ABD+PEL W CON (06/19/2024 8:51 PM CDT) Anatomical Region Laterality Modality Chest, Abdomen, Pelvis Computed Tomography 06/19/2024 9:00 PM CDT Impressions 06/19/2024 9:18 PM CDT IMPRESSION: 1. No convincing acute traumatic abnormality identified in the chest, abdomen or pelvis. 2. Subacute versus chronic displaced fracture of the sternum. 3. Chronic appearing bilateral nondisplaced rib fractures. 4. Status post cholecystectomy with nonspecific bile duct dilatation. 5. Mild bilateral lower lobe opacity, atelectasis favored over contusion. 6. Colonic diverticulosis without diverticulitis. 7. Emphysema. 8. Other chronic or nonurgent findings as described above. Referred By: Interpreted By: Jae Anderson MD, 06/19/2024 9:00 PM Narrative 06/19/2024 9:18 PM CDT [facility] [address] [place] [address] Examination: CT CHEST+ABD+PEL W CON Clinical history: Pain after fall Comparison: Abdomen CT 05/19/2020, chest CT 10/14/2012 DATE/TIME: 06/19/2024 8:38 PM Technique: Multiplanar CT images of the chest, abdomen and pelvis were obtained. IV contrast: 80 cc Isovue 370. Oral contrast: None. A dose lowering technique was used for this procedure, which may include, but is not limited to, dose reduction technique, automated exposure control, the use of iterative reconstruction, and ALARA (As Low As Reasonably Achievable) / Image Gently techniques. Findings: CHEST: Tiny right posterolateral tracheal diverticulum at the thoracic inlet measuring 4 mm. Heart size is within normal limits. Thoracic aorta is normal caliber without evidence of injury or dissection. No pericardial effusion or mediastinal hematoma. No mediastinal or hilar lymphadenopathy. Mild bilateral peripheral reticular opacity, most likely atelectasis. Contusion or possibly relatively less likely. Pneumonia unlikely. Mild pulmonary emphysema. Multiple calcified pulmonary granulomas bilaterally. No pleural effusion or pneumothorax. Coronary artery calcifications. ABDOMEN/PELVIS: There is a small lipoma in the left upper rectus abdominis measuring 5.5 x 1.2 cm transverse dimension and 6.2 cm craniocaudal dimension. Benign calcifications in the liver and spleen, which are otherwise negative. Status post cholecystectomy. There is moderate intrahepatic and extrahepatic bile duct dilatation, nonspecific after cholecystectomy but new since 2020. No pancreatic duct dilatation. Pancreas is negative. Adrenal glands are negative. Tiny low-density left renal lesions, too small to characterize. Kidneys are otherwise negative. Bladder is unremarkable. Hysterectomy. No pelvic mass. Abdominal aorta is normal caliber with atherosclerotic calcification. No intra-abdominal lymphadenopathy or hematoma. Tiny umbilical hernia containing only fat. Calcified pelvic phleboliths. No free air or fluid. Colonic diverticulosis without evidence of acute diverticulitis. No bowel obstruction. No acute GI tract inflammatory change identified. Is not identified but no evidence for appendicitis is seen. BONES: Old compression fractures of T5, T6 and T7 status post vertebroplasty. Additional chronic appearing mild compression deformities of C7, T1 and T2. There is a transverse fracture of the sternal body with mild displacement. There is sclerosis about the fracture site suggesting nonacute etiology, either chronic/nonunited fracture versus subacute healing fracture. No bony bridging/periosteal new bone formation. Findings are new since 2020. Additional nonacute, nondisplaced fracture of the right ninth rib. Multiple chronic-appearing nondisplaced fractures of the left anterior ribs involving the third through sixth anterior ribs. No definite acute fracture identified. Procedure Note Jae Anderson MD - 06/19/2024 [facility] [address] [place] [address] Examination: CT CHEST+ABD+PEL W CON Clinical history: Pain after fall Comparison: Abdomen CT 05/19/2020, chest CT 10/14/2012 DATE/TIME: 06/19/2024 8:38 PM Technique: Multiplanar CT images of the chest, abdomen and pelvis wereobtained. IV contrast: 80 cc Isovue 370. Oral contrast: None. A doselowering technique was used for this procedure, which may include, but isnot limited to, dose reduction technique, automated exposure control, theuse of iterative reconstruction, and ALARA (As Low As ReasonablyAchievable) / Image Gently techniques. Findings: CHEST: Tiny right posterolateral tracheal diverticulum at the thoracicinlet measuring 4 mm. Heart size is within normal limits. Thoracic aortais normal caliber without evidence of injury or dissection. Nopericardial effusion or mediastinal hematoma. No mediastinal or hilarlymphadenopathy. Mild bilateral peripheral reticular opacity, most likely atelectasis.Contusion or possibly relatively less likely. Pneumonia unlikely. Mildpulmonary emphysema. Multiple calcified pulmonary granulomas bilaterally.No pleural effusion or pneumothorax. Coronary artery calcifications. ABDOMEN/PELVIS: There is a small lipoma in the left upper rectus abdominismeasuring 5.5 x 1.2 cm transverse dimension and 6.2 cm craniocaudaldimension. Benign calcifications in the liver and spleen, which areotherwise negative. Status post cholecystectomy. There is moderateintrahepatic and extrahepatic bile duct dilatation, nonspecific aftercholecystectomy but new since 2020. No pancreatic duct dilatation.Pancreas is negative. Adrenal glands are negative. Tiny low-density left renal lesions, toosmall to characterize. Kidneys are otherwise negative. Bladder isunremarkable. Hysterectomy. No pelvic mass. Abdominal aorta is normalcaliber with atherosclerotic calcification. No intra-abdominallymphadenopathy or hematoma. Tiny umbilical hernia containing only fat. Calcified pelvic phleboliths.No free air or fluid. Colonic diverticulosis without evidence of acutediverticulitis. No bowel obstruction. No acute GI tract inflammatorychange identified. Is not identified but no evidence for appendicitis isseen. BONES: Old compression fractures of T5, T6 and T7 status postvertebroplasty. Additional chronic appearing mild compression deformitiesof C7, T1 and T2. There is a transverse fracture of the sternal body withmild displacement. There is sclerosis about the fracture site suggestingnonacute etiology, either chronic/nonunited fracture versus subacutehealing fracture. No bony bridging/periosteal new bone formation.Findings are new since 2020. Additional nonacute, nondisplaced fractureof the right ninth rib. Multiple chronic-appearing nondisplaced fracturesof the left anterior ribs involving the third through sixth anterior ribs.No definite acute fracture identified. IMPRESSION: 1. No convincing acute traumatic abnormality identified in the chest,abdomen or pelvis. 2. Subacute versus chronic displaced fracture of the sternum. 3. Chronic appearing bilateral nondisplaced rib fractures. 4. Status post cholecystectomy with nonspecific bile duct dilatation. 5. Mild bilateral lower lobe opacity, atelectasis favored overcontusion. 6. Colonic diverticulosis without diverticulitis. 7. Emphysema. 8. Other chronic or nonurgent findings as described above. Referred By: Interpreted By: Jae Anderson MD, 06/19/2024 9:00 PM Brianna Osman MD CT Final Result * ORDER PLATELET PHERESIS, 1 Units (06/19/2024 8:50 PM CDT) Pathologist [facility] UNITS ORDERED 1 06/19/2024 9:46 PM CDT [facility] BLOOD UNIT NUMBER [id number] 06/19/2024 10:45 PM CDT [facility] PRODUCT: PLT PHERESIS LEUKRED 7D BAG 1 06/19/2024 10:45 PM CDT [facility] UNIT DIVISION 00 06/19/2024 10:45 PM CDT [facility] BLOOD UNIT STATUS TRANSFUSED,FINAL 06/20/2024 6:57 AM CDT [facility] ISSUE DATE/TIME [id number] 025 6:57 AM CDT [facility] ABO/RH Unit A POS 06/20/2024 6:57 AM CDT [facility] ABO/RH UNIT ISBT CODE [id number] 06/20/2024 6:57 AM CDT [facility] BLOOD UNIT EXPIRATION DATE [id number] 06/20/2024 6:57 AM CDT [facility] TRANSFUSION STATUS OK TO TRANSFUSE 06/19/2024 10:45 PM CDT [facility] 06/19/2024 8:50 PM CDT Brianna Osman MD BLOOD BANK PRODUCT OR DERABLES Final Result [facility] [address] [place] [address], [place] [phone] * (ABNORMAL) URINALYSIS (06/19/2024 8:45 PM CDT) COLOR (U) LIGHT YELLOW 06/19/2024 9:02 PM CDT [facility] TRANSPARENCY CLEAR 06/19/2024 9:02 PM CDT [facility] SPECIFIC GRAVITY (U) 1.010 1.002 - 1.030 06/19/2024 9:02 PM CDT [facility] U PH 6.0 4.5 - 8.0 06/19/2024 9:02 PM T [facility] LEUKOCYTES (U) 3+(A) NEGATIVE 06/19/2024 9:02 PM [facility] NITRITES NEGATIVE NEGATIVE 06/19/2024 9:02 PM T [facility] PROTEIN RANDOM (U) 2+(A) NEGATIVE 06/19/2024 9:02 PM T [facility] GLUCOSE (U) NEGATIVE NEGATIVE 06/19/2024 9:02 PM [facility] KETONES MG/DL (U) NEGATIVE NEGATIVE 06/19/2024 9:02 PM [facility] UROBILINOGEN NORMAL NORMAL EU/DL 06/19/2024 9:02 PM T [facility] BILIRUBIN (U) NEGATIVE NEGATIVE 06/19/2024 9:02 PM [facility] BLOOD (U) 1+(A) NEGATIVE 06/19/2024 9:02 PM [facility] WBC/HPF 0-5 /HPF 06/19/2024 9:02 PM [facility] RBC/HPF 0-2 /HPF 06/19/2024 9:02 PM T [facility] EPI/HPF 0-5 /HPF 06/19/2024 9:02 PM T [facility] BACTERIA (U) 1+ /HPF 06/19/2024 9:02 PM [facility] URINE SPECIMEN OBTAINED BY CLEAN CATCH PROCEDURE / Unknown 06/19/2024 8:45 PM CDT us Brianna Osman MD URINE ORDERABLES Jessie chavez Result [facility] () [facility] [address] [place] [address], * ECG 12 lead (06/19/2024 7:43 PM CDT) 06/19/2024 7:43 PM CDT Narrative [facility] (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1955 Requested By: BRIANNA OSMAN Order Number: [id number] Reading MD: Ernst Riley Measurements Intervals Milner Rate: 89 P: 46 MA: 191 QRS: 30 QRSD: 108 T: 34 QT: 367 QTc: 447 Interpretive Statements SINUS RHYTHM NONSPECIFIC ST & T-WAVE ABNORMALITY Compared to ECG 06/20/2019 13:56:55 T-wave abnormality now present Sinus arrhythmia no longer present Procedure Note Ernst Riley MD - 06/19/2024 [facility] Test Date: 2024-06-19 Pat Name: GEENA REYEZ Department: 80 Room: T1TR1 Gender: Female 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1955 Requested By: BRIANNA OSMAN Order Number: [id number] Reading : Ernst Riley Measurements Intervals Milner Rate: 89 P: 46 MA: 191 QRS: 30 QRSD: 108 T: 34 QT: 367 QTc: 447 Interpretive Statements SINUS RHYTHM NONSPECIFIC ST & T-WAVE ABNORMALITY Compared to ECG 06/20/2019 13:56:55 T-wave abnormality now present Sinus arrhythmia no longer present us Brianna Osman MD ECG ORDERABLES Final Result [facility] ([facility] RAD * CT CERV SPINE WO CON (06/19/2024 7:38 PM CDT) Anatomical Region Laterality Modality Spine Computed Tomogra phy 06/19/2024 7:59 PM CDT Impressions 06/19/2024 8:03 PM CDT Impression: 1. No acute fracture identified. 2. Advanced progressive degenerative disease and other chronic/nonurgent findings as above. Referred By: Interpreted By: Jae Anderson MD, 06/19/2024 7:59 PM Narrative 06/19/2024 8:03 PM CDT [facility] [address] [place] [address] Examination: CT Cervical Spine Without Contrast Clinical History: Pain after fall Comparison: 07/05/2011 DATE/TIME: 06/19/2024 7:28 PM Technique: Axial, coronal and sagittal unenhanced imaging of the cervical spine was performed. A dose lowering technique was used for this procedure, which may include, but is not limited to, dose reduction techniques, automated exposure control, the use of a iterative reconstruction, and ALARA (as low as reasonably achievable)/image gently techniques. Findings: There is minimal anterolisthesis of C2 over C3 and C3 over C4, with minimal retrolisthesis of C4 over C5. Minimal levoconvex lateral curvature. Alignment is otherwise unremarkable. There is advanced degenerative change at C3-C4, significantly progressed since 2011. Suspect moderate spinal canal narrowing at C3-4 and moderate or potentially severe spinal canal narrowing at C4-5. There is severe bilateral neuroforaminal narrowing at most levels. Higher level detail would require MRI or myelography. There is advanced facet arthritis at most levels. No acute fracture identified. Chronic anterior wedging at T7 and T1 with mild height loss, new since 2011. No prevertebral soft tissue swelling. Bilateral carotid arterial calcifications are noted. Calcified granulomas in the upper lobes and mild emphysematous change. Tiny tracheal diverticulum about the right posterolateral aspect of the thoracic inlet. Small bone island in the left T2 transverse process. Procedure Note Jae Anderson MD - 06/19/2024 [facility] [address] [place] [address] Examination: CT Cervical Spine Without Contrast Clinical History: Pain after fall Comparison: 07/05/2011 DATE/TIME: 06/19/2024 7:28 PM Technique: Axial, coronal and sagittal unenhanced imaging of the cervicalspine was performed. A dose lowering technique was used for thisprocedure, which may include, but is not limited to, dose reductiontechniques, automated exposure control, the use of a iterativereconstruction, and ALARA (as low as reasonably achievable)/image gentlytechniques. Findings: There is minimal anterolisthesis of C2 over C3 and C3 over C4, withminimal retrolisthesis of C4 over C5. Minimal levoconvex lateralcurvature. Alignment is otherwise unremarkable. There is advanceddegenerative change at C3-C4, significantly progressed since 2011.Suspect moderate spinal canal narrowing at C3-4 and moderate orpotentially severe spinal canal narrowing at C4-5. There is severebilateral neuroforaminal narrowing at most levels. Higher level detailwould require MRI or myelography. There is advanced facet arthritis atmost levels. No acute fracture identified. Chronic anterior wedging at T7 and T1 withmild height loss, new since 2011. No prevertebral soft tissue swelling.Bilateral carotid arterial calcifications are noted. Calcified granulomasin the upper lobes and mild emphysematous change. Tiny trachealdiverticulum about the right posterolateral aspect of the thoracic inlet.Small bone island in the left T2 transverse process. Impression: 1. No acute fracture identified. 2. Advanced progressive degenerative disease and other chronic/nonurgentfindings as above. Referred By: Interpreted By: Jae Anderson MD, 06/19/2024 7:59 PM Brianna Osman MD CT Final Result from Last 3 Mon[address] Insurance [facility] Advance Directives * DNR (Latest Code Status on File) Date Activated Date Inactivated Comments 01/15/2019 2:10 AM 01/16/2019 5:50 PM * DNR Date Activated Date Inactivated Comments 12/20/2018 3:14 PM 12/21/2018 7:59 PM Care Teams Senior Java Software Engineer Relationship Specialty Start Date End Date Joan Rojas DO [address] [place] [address] PCP - General FAMILY PRACTICE 06/21/24 Nola Franklin, [facility] NURSE PRACTITIONER 05/19/20 Jim White MD [facility] [address] [place] [address] [place] D[employer] Manager INTERVENTIONAL CARDIOLOGY 02/21/19
[2024-06-30 19:23] LABS: Add Urine Microscopic? YES; Appearance Urine Clear (Clear); Bacteria Urine None Seen /hpf; Bilirubin Urine Negative (Negative); Blood Urine Negative (Negative); Color Urine Yellow (Yellow); Glucose Urine UA Negative (Negative); Ketones Urine Negative (Negative); Leukocyte Esterase Ur Trace LEU/UL (Negative); Nitrate Urine Negative (Negative); Protein Urine Negative (Negative); RBC Urine 0-2 /hpf (0-2); Specific Grav Ur 1.008 (1.001-1.035); Squamous Epithelial Cell Urine Few /hpf (Few); Urobilinogen Urine 0.2 mg/dL (<2.0); WBC Urine 0-5 /hpf (0-3)
[2024-06-30 19:25] LABS: Hematocrit 35.6 % (37.0-47.0); Hemoglobin 10.9 g/dL (12.0-15.0); Mean Corpuscular HGB Conc 30.6 g/dl (32-36); Mean Corpuscular Hemoglobin 29.7 pg (26-34); Mean Platelet Volume 9.4 fl (7.4-10.4); Platelet Count Result 355 k/mm3 (150-375); Red Blood Count 3.67 M/mm3 (4.2-5.4); Red Cell Distribution Width 13.2 % (11.5-14.5); White Blood Count 7.9 K/mm3 (4.5-10.0)
[2024-06-30 19:53] LABS: Alanine Aminotransferase 12 U/L (6-35); Alkaline Phosphatase 83 U/L (38-126); Anion Gap 5 mmol/L (4-12); Aspartate Amino Transferase 25 U/L (14-36); Bilirubin,Total 0.2 mg/dL (0.2-1.3); Blood Urea Nitrogen 17 mg/dL (7-17); Calcium 9.1 mg/dL (8.4-10.2); Carbon Dioxide 30 mmol/L (22-30); Chloride 103 mmol/L (98-107); Estimated Glomerular Filt Rate 43; Glucose 83 mg/dL (65-110); Potassium 3.9 mmol/L (3.4-5.0); Sodium 138 mmol/L (137-145)
== END 2024-06-30 14:36 | disposition home or self-care (01) ==
LOC: ANHGOSHLAB 14:36
PROVIDERS: PCP Family Medicine; Visit Provider Nurse Practitioner
DX: E78.5 Hyperlipidemia, unspecified (principal); D64.9 Anemia, unspecified; R30.0 Dysuria
CPT/HCPCS: 36415; 80053; 81001; 85027

== ENCOUNTER 2024-07-07 13:48 | Outpatient (CLI) | payer MEDICARE, MEDICAID, SELFPAY ==
--- NOTE | ~2024-07-07 | XR_ITS ---
Clinical Indication: Chest pain PA and lateral views of the chest: Comparison: 03/24/2018 Findings: The lungs are clear, without evidence of focal consolidation or pleural effusion. Cardiome diastinal silhouette is within normal limits. Stable 3 level vertebroplasty in the mid thoracic spine . Possible fracture or lytic lesion in the lateral right ninth rib. Impression: Fracture versus lytic lesion suspected at the lateral right ninth rib. Consider CT to better evaluate . Clear lungs. Reviewed, dictated and finalized at [facility]. Impression: Fracture versus lytic lesion suspected at the lateral right ninth rib. Consider CT to better evaluate. Clear lungs.
--- OUTSIDE RECORDS SUMMARY | 2024-07-07 13:58 | XMS_ITS | Encounter Summary ---
Author Organization [facility] Address [address] [place] [address] Care Team Providers Care Manager Culture Name Role Phone Nola Franklin PREFITTER DOORS-BC Primary Care Provider [phone] Rigoberto Crystal L P[employer]-BC Primary Care Provider [phone] Rigoberto Crystal L PREFITTER DOORS-BC Unavailable [phone] Jim White MD Unavailable [phone] Joan Rojas DO Primary Care Provider Encounter Details Date Type Department Care Team (Late st Contact Info) Description 01/17/2019 Hospital Follow-up Call [facility] Clinical Decision Unit [place], [place] [id number] Lan Arreola, [place] Social History Tobacco [...] Industry 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 Job End Date 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 Answer Date of Assessment Author Status No 01/15/2019 7:00 AM FILTROSE CRUSHER Activ e * Do you have serious [...] documented as of this encounter Care Teams Manager Culture Relationship Specialty Start Date End Date Nola Franklin FNP-BC PCP - General NURSE PRACTITIONER 11/02/18 05/18/20 Nola Franklin FNP-BC PCP - General NURSE PRACTITIONER 05/19/20 06/20/24 Joan Rojas DO [address] [place] [address] [place] [address] PCP - General FAMILY PRACTICE 06/21/24 Nola Franklin, [facility]- NURSE PRACTITIONER 05/19/20 Jim White MD [id number] [place] [address] [place] [employer] Vehicle Inspector INTERVENTIONAL CARDIOLOGY 02/21/19 documented as of this encounter
--- OUTSIDE RECORDS SUMMARY | 2024-07-07 13:58 | XMS_ITS | Encounter Summary ---
Author Organization [facility] Address [address] [place] [address] Phone Care Team Providers Care Senior Financial Name Role Phone RigobertoNola DIGITAL AD TRAFFICKER Unavailable [phone] Doreen Mejía DIGITAL AD TRAFFICKER Primary Care Provider [phone] No, Physician Primary Care Provider [phone] Encounter Details Date Type Department Care Team (Late st Contact Info) Description 10/29/2020 Telephone [facility] [address] [facility] Advanced Medicine 7th [place] [address] [place] [address] Wendy Ng Social History Tobacco Use Types Packs/Day Years Used Date Smoking Tobacco: Every Day Cigarettes Alcohol Use Standard Drinks/Week Comments Not Currently 0 (1 standard drink = 0.6 oz pur e alcohol) Comments Unknown Sex and Gender Information Value Date Recorded Sex Assigned at Not on file Legal Sex Female 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 Gender Identity Not on file Sexual Orientation Not on file documented as of this encounter Plan of Treatment Not on file documented as of this encounter Visit Diagnoses Not on filedocumented in this encounter Additional Health Concerns Infection Onset Date Last Indicated Resolved Time COVID: Suspected 04/06/2023 04/06/2023 04/06/2023 2:38 PM TUBE MILL OPERATOR documented as of this encounter Care Teams Senior Financial Relationship Specialty Start Date End Date Doreen Mejía NP [address] [place] [address] PCP - General Internal Medicine 12/05/20 02/02/24 No, Physician PCP - General 02/03/24 Nola Franklin NP [address] [place] [id number] Nurse Practitioner Nurse Practitioner 11/06/20 12/04/20 documented as of this encounter
--- OUTSIDE RECORDS SUMMARY | 2024-07-07 13:58 | XMS_ITS | CONTINUITY OF CARE DOCUMENT ---
Author Name lucy ayala Address Unknown Organization [facility] Address [address] [place] [address] Phone [phone] Care Team Providers Care Steam Fitter Supervisor Maintenance Name Role Phone Telma Kelly MD Unavailable Telma Kelly MD Unavailable [phone] PROBLEMS Condition Status Date Provider Notes History of Hodgkins lymphoma active Gen Ah medzai Hypothyroidism active Gen Ahmedzai Hypertension active Gen Ahmedzai Hyperlipidemia active Gen Ahmedzai COPD active Gen Ahmedzai Tobacco abuse active Gen Ahana rosazai AARON--on cpap active Gen Hilario ENCOUNTERS Date Type Provider Location Encounter Diag nosis 08/31 - 08/31 In-person encounter Office Visit Telma Kelly MD [place] [facility] AARON--on cpapTobacco abuseCOPDHyperlipidemiaHypertensionHypothyroidismHis tory of Hodgkins lymphoma INSURANCE PROVIDERS Payer name Policy type / Coverage type [place] red alliance party ID [employer] Other [facility] COMPLETE CARE [id number] (PPO C-SNP) Commercial insurance company [id number] [facility] MEDICARE COMPLETE HMO Other [id number]
--- OUTSIDE RECORDS SUMMARY | 2024-07-07 13:59 | XMS_ITS | Clinical Summary ---
Author Organization [facility] Address [address] [place] [address] Care Team Providers Care Flying I Instructor Name Role Phone Nola Franklin FRUIT AND VEGETABLE INSPECTOR-BC Unavailable [phone] Jim White MD Unavailable [phone] Joan Rojas DO Primary Care Provider [phone] Allergies Active Allergy Reactions Criticality Noted Date [...] top Taking at Discharge) vitamin D2, ergocalciferol, [address]6439 UNITS capsuleIndication s:Tuesdays Take 50,000 Units by [...] of aorta Hypertension AARON on CPAP Lymphoma ([facility]) Encounters Date Type Department Care Team Description 06/23/2024 9:00 AM CDT Home Care Visit [facility] Home Care [address] [place] [address] [place] [address] Sharron Sanders RN SN NON ADMIT SOC 06/19/2024 7:17 PM CDT - 06/20/2024 2:16 PM CDT Hospital Encounter [facility] Medical/Surgical [address] [place] [address] Brianna Osman MD Verma, Seema, MD Engele, [...] drink = 0.6 oz pur e alcohol) [facility] Utilities Answer Date Recorded In the past 12 months has e [employer], gas, oil, or water [place] threatened to shut off services in your [...] any time in the past 12 m [facility], were you homeless or living in a senior care (including now)? 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 Not on [...] 5 season) 2023 07/18/2020, 07/03/2020 PHQ-2 (Physician [place]) 03/02/2024 DTaP, Tdap and Td Vaccines ( [...] 12:16 PM Narrative 06/20/2024 12:28 PM CDT [facility] [address] [place] [address] EXAMINATION: CT HEAD WO [facility] INDICATIONS: TIMED FOLLOW-UP OF PRIOR ABNORMAL CT [...] Procedure Note Nikko West MD - 06/20/2024 [facility] [address] [facility] [place] [address] EXAMINATION: CT HEAD WO CON INDICATIONS: TIMED FOLLOW-UP OF PRIOR ABNORMAL CT HEAD, NSGY [id number] AND 1200 COMPARISON: Multiple prior CT examinations [...] - 3.74 uIU/ML 06/20/2024 5:41 AM CDT [facility] Comment: HIGH DOSES OF BIOTIN MAY INTERFERE WITH THIS TEST RESULT. CORRELATION TO CLINICAL HISTORY AND PRESENTATION RECOMMENDED. FREE T4 NOT INDICATED 06/20/2024 4:25 AM CDT us Kennedy Tamayo MD LABORATORY Final Result [facility] [address] [place] [address], [place] [phone] * (ABNORMAL) COMPREHENSIVE METABOLIC PANEL (06/20/2024 4:25 AM CDT) Only the most recent of2 resultswithin the time period is included. Pathologist [facility] GLUCOSE 98 70 - 99 MG/DL 06/20/2024 5:41 AM CDT [facility] BUN 10 7 - 18 MG/DL 06/20/2024 5:41 AM CDT [facility] CREATININE S/P/B 1.06(H) 0.55 - 1.02 MG/DL 06/20/2024 5:41 AM CDT [facility] SODIUM S/P/B 144 136 - 145 MMOL/L 06/20/2024 5:41 AM CDT [facility] POTASSIUM S/P/B 3.2(L) 3.5 - 5.1 MMOL/L 06/20/2024 5:41 AM CDT [facility] CHLORIDE S/P/B 107 100 - 108 MMOL/L 06/20/2024 5:41 AM CDT [facility] CO2 28.3 21 - 32 MMOL/L 06/20/2024 5:41 AM [facility] CALCIUM S/P/B 8.7 8.5 - 10.1 MG/DL 06/20/2024 5:41 AM [facility] BILIRUBIN TOTAL S/P/B 0.1(L) 0.2 - 1.2 MG/DL 06/20/2024 5:41 AM [facility] Comment: THIS ASSAY IS NOT RECOMMENDED FOR PATIENTS UNDERGOING TREATMENT WITH ELTROMBOPAG DUE TO THE POTENTIAL FOR FALSELY ELEVATED RESULTS. TOTAL PROTEIN S/P/B 5.8(L) 6.4 - 8.2 G/DL 06/20/2024 5:41 AM [facility] ALBUMIN S/P/B 2.9(L) 3.4 - 5.0 G/DL 06/20/2024 5:41 AM [facility] AST 13(L) 15 - 37 U/L 06/20/2024 5:41 AM [facility] ALT 21 14 - 55 U/L 06/20/2024 5:41 AM [facility] ALKALINE PHOSPHATASE S/P/B 84 50 - 136 U/L 06/20/2024 5:41 AM [facility] ANION GAP 8.7 5 - 15 MMOL/L 06/20/2024 5:41 AM [facility] BUN CREATININE RATIO 9.4 6 - 26 06/20/2024 5:41 AM [facility] A/G RATIO 1.0 1.0 - 2.0 RATIO 06/20/2024 5:41 AM [facility] GFR ESTIMATE 57(L) >90 ML/MIN/1.7 3 M2 06/20/2024 5:41 AM [facility] Comment: NOTE: eGFR is not [...] MD LABORATORY Final Result Performing Organization Address City/[facility] Co de Phone Number [facility] [address] [place] [address], [place] [phone] * TROPONIN, QUANT (06/20/2024 4:25 AM CDT) Only the most recent of3 resultswithin the time period is included. TROPONIN I HIGH SENSITIVITY 13 0 - 54 ng/L 06/20/2024 5:41 AM CDT [facility] Comment: HIGH DOSES OF BIOTIN, TROPONIN-SPECIFIC AUTOANTIBODIES, AND ANTIBODY THERAPY CONTAINING HAMA MAY INTERFERE WITH THIS TEST RESULT. CORRELATION TO CLINICAL HISTORY AND PRESENTATION RECOMMENDED. 06/20/2024 4:25 AM CDT us Kennedy Tamayo MD LABORATORY Final Result Performing Organization Address [facility] Co de Phone Number [facility] [address] [place] [address], [place] [phone] * MAGNESIUM (06/20/2024 4:25 AM CDT) Pathologist [facility] MAGNESIUM 1.8 1.8 - 2.4 MG/DL 06/20/2024 5:41 AM CDT [facility] 06/20/2024 4:25 AM CDT us Kennedy Tamayo MD LABORATORY Final Result Performing Organization Address City/[facility] Co de Phone Number [facility] [address] [place] [address], [place] [phone] * (ABNORMAL) CBC W/DIFF AUTOMATED (06/20/2024 4:24 AM CDT) Only the most recent of2 resultswithin the time period is included. [facility] Signature WBC 7.05 4.50 - 11.00 x10'3/uL 06/20/2024 5:04 AM CDT [facility] RBC 3.39(L) 4.20 - 5.40 x10'6/uL 06/20/2024 5:04 AM CDT [facility] HGB 10.0(L) 12.0 - 16.0 G/DL 06/20/2024 5:04 AM T [facility] HCT 31.7(L) 38.0 - 48.0 % 06/20/2024 5:04 AM CDT [facility] MCV 93.5 81.0 - 99.0 FL 06/20/2024 5:04 AM CDT [facility] MCH 29.5 27.0 - 31.0 PG 06/20/2024 5:04 AM T [facility] MCHC 31.5(L) 32.0 - 36.0 G/DL 06/20/2024 5:04 AM T [facility] RDW 12.9 11.5 - 14.5 % 06/20/2024 5:04 AM T [facility] PLT 389 130 - 400 x10'3/uL 06/20/2024 5:04 AM T [facility] MPV 9.0(L) 9.3 - 12.2 FL 06/20/2024 5:04 AM T [facility] CBC COMMENT AUTOMATED RBC MORPHOLOGY AND PLATELET EVALUATION NORMAL 06/20/2024 5:04 AM CDT [facility] NEUTROPHILS % 57.7 % 06/20/2024 5:04 AM T [facility] LYMPHOCYTES % 26.0 % 06/20/2024 5:04 AM CDT [facility] MONOCYTES % 11.6 % 06/20/2024 5:04 AM T [facility] EOSINOPHILS 3.7 % 06/20/2024 5:04 AM CDT [facility] BASOPHILS 0.7 % 06/20/2024 5:04 AM T [facility] IMMATURE GRANS % 0.3 % 06/21/19 5:04 AM CDT [facility] NRBC % 0.0 % 06/20/2024 5:04 AM T [facility] ABS. NEUTROPHILS TOTAL 4.07 1.80 - 7.70 x10'3/uL 06/20/2024 5:04 AM T [facility] ABS. LYMPHOCYTES 1.83 1.00 - 4.80 x10'3/uL 06/20/2024 5:04 AM T [facility] ABS. MONOCYTES 0.82 0.24 - 0.86 x10'3/uL 06/20/2024 5:04 AM T [facility] ABS. EOSINOPHILS 0.26 0.04 - 0.36 x10'3/uL 06/20/2024 5:04 AM T [facility] ABS. BASOPHILS 0.05 0.01 - 0.08 x10'3/uL 06/20/2024 5:04 AM T [facility] ABS. IMMATURE GRANULOCYTES 0.02 0.00 - 0.49 x10'3/uL 06/20/2024 5:04 AM [facility] ABS. NUCLEATED RBC'S 0.00 0.00 - 0.01 x10'3/uL 06/20/2024 5:04 AM T [facility] 06/20/2024 4:24 AM CDT us Kennedy Tamayo MD LABORATORY Final Result [facility] [address] [place] [address], [place] [phone] * TRANSFUSE PLATELET PHERESIS (06/20/2024 12:05 AM CDT) Brianna Osman MD NURSING TREATMENT ORD ERABLES - BLOOD ADMIN Final Result * TYPE & SCREEN (06/19/2024 9:49 PM CDT) ABO/RH A POSITIVE 06/19/2024 10:43 PM CDT [facility] ANTIBODY SCREEN NEGATIVE 06/19/2024 10:43 PM CDT [facility] SAMPLE EXPIRATION 06/22/2024,2 359 06/19/2024 10:01 PM CDT [facility] 06/19/2024 9:49 PM CDT Brianna Osman MD BLOOD BANK TEST ORDER GILDA Final Result Performing Organization Address [facility] Co de Phone Number [facility] [address] [place] [address], [place] [phone] * CT CHEST+ABD+PEL W CON (06/19/2024 8:51 [...] 9:00 PM Narrative 06/19/2024 9:18 PM CDT [facility] [address] [place] [address] Examination: CT CHEST+ABD+PEL W CON Clinical history: [...] Procedure Note Jae Anderson MD - 06/19/2024 [facility] [address] [place] [address] Examination: CT CHEST+ABD+PEL W CON Clinical history: [...] 1 Units (06/19/2024 8:50 PM CDT) Pathologist [facility] UNITS ORDERED 1 06/19/2024 9:46 PM CDT [facility] BLOOD UNIT NUMBER [id number] 06/19/2024 10:45 PM CDT [facility] PRODUCT: PLT PHERESIS LEUKRED 7D BAG 1 06/19/2024 10:45 PM CDT [facility] UNIT DIVISION 00 06/19/2024 10:45 PM CDT [facility] BLOOD UNIT STATUS TRANSFUSED,FINAL 06/20/2024 6:57 AM CDT [facility] ISSUE DATE/TIME [id number] 025 6:57 AM CDT [facility] ABO/RH Unit A POS 06/20/2024 6:57 AM CDT [facility] ABO/RH UNIT ISBT CODE 6200 06/20/2024 6:57 AM CDT [facility] BLOOD UNIT EXPIRATION DATE [id number] 06/20/2024 6:57 AM CDT [facility] TRANSFUSION STATUS OK TO TRANSFUSE 06/19/2024 10:45 PM CDT [facility] 06/19/2024 8:50 PM CDT Brianna Osman MD BLOOD BANK PRODUCT OR DERABLES Final Result [facility] [address] [place] [address], [place] [phone] * (ABNORMAL) URINALYSIS (06/19/2024 8:45 PM CDT) COLOR (U) LIGHT YELLOW 06/19/2024 9:02 PM CDT [facility] TRANSPARENCY CLEAR 06/19/2024 9:02 PM CDT [facility] SPECIFIC GRAVITY (U) 1.010 1.002 - 1.030 06/19/2024 9:02 PM CDT [facility] U PH 6.0 4.5 - 8.0 06/19/2024 9:02 PM T [facility] LEUKOCYTES (U) 3+(A) NEGATIVE 06/19/2024 9:02 PM [facility] NITRITES NEGATIVE NEGATIVE 06/19/2024 9:02 PM T [facility] PROTEIN RANDOM (U) 2+(A) NEGATIVE 06/19/2024 9:02 PM T [facility] GLUCOSE (U) NEGATIVE NEGATIVE 06/19/2024 9:02 PM [facility] KETONES MG/DL (U) NEGATIVE NEGATIVE 06/19/2024 9:02 PM [facility] UROBILINOGEN NORMAL NORMAL EU/DL 06/19/2024 9:02 PM T [facility] BILIRUBIN (U) NEGATIVE NEGATIVE 06/19/2024 9:02 PM [facility] BLOOD (U) 1+(A) NEGATIVE 06/19/2024 9:02 PM [facility] WBC/HPF 0-5 /HPF 06/19/2024 9:02 PM [facility] RBC/HPF 0-2 /HPF 06/19/2024 9:02 PM T [facility] EPI/HPF 0-5 /HPF 06/19/2024 9:02 PM T [facility] BACTERIA (U) 1+ /HPF 06/19/2024 9:02 PM [facility] URINE SPECIMEN OBTAINED BY CLEAN CATCH PROCEDURE / Unknown 06/19/2024 8:45 PM CDT us Brianna Osman MD URINE ORDERABLES Jessie chavez Result [facility] () [facility] [address] [place] [place] [id number], * ECG 12 lead (06/19/2024 7:43 PM CDT) 06/19/2024 7:43 PM CDT Narrative [facility] ([facility]) RAD - 06/19/2024 9:11 PM CDT [facility] Test Date: 2024-06-19 [facility]: 80 Room: T1TR1 Gender: Female Old Testament Professor: Natalie : 1955 Requested By: BRIANNA OSMAN Order Number: [id number] Reading MD: Ernst Riley Measurements Intervals Constable Rate: 89 P: 46 NM: 191 QRS: 30 QRSD: 108 T: 34 QT: 367 QTc: 447 Interpretive Statements SINUS RHYTHM NONSPECIFIC ST & T-WAVE ABNORMALITY Compared to ECG 06/20/2019 13:56:55 T-wave abnormality now present Sinus arrhythmia no longer present Procedure Note Ernst Riley MD - 06/19/2024 [facility] Test Date: 2024-06-19 Pat Name: GEENA REYEZ Department: 80 Room: T1TR1 Gender: Female Old Testament Professor: Natalie : 1955 Requested By: BRIANNA OSMAN Order Number: [id number] Reading : Ernst Riley Measurements Intervals Constable Rate: 89 P: 46 NM: 191 QRS: 30 QRSD: 108 T: 34 QT: 367 QTc: 447 Interpretive Statements SINUS RHYTHM NONSPECIFIC ST & T-WAVE ABNORMALITY Compared to ECG 06/20/2019 13:56:55 T-wave abnormality now present Sinus arrhythmia no longer present us Brianna Osman MD ECG ORDERABLES Final Result [facility] ([facility] RAD * CT CERV SPINE WO CON (06/19/2024 7:38 PM CDT) Anatomical Region Laterality Modality Spine Computed Tomogra phy 06/19/2024 7:59 PM CDT Impressions 06/19/2024 8:03 PM CDT Impression: 1. No acute fracture identified. 2. Advanced progressive degenerative disease and other chronic/nonurgent findings as above. Referred By: Interpreted By: Jae Anderson MD, 06/19/2024 7:59 PM Narrative 06/19/2024 8:03 PM CDT [facility] [address] [place] [address] Examination: CT Cervical Spine Without Contrast Clinical [...] Procedure Note Jae Anderson MD - 06/19/2024 [facility] [address] [place] [address] Examination: CT Cervical Spine Without Contrast Clinical [...] Final Result from Last 3 Months Insurance [facility] Advance Directives * DNR (Latest Code Status on File) Date Activated Date Inactivated Comments 01/15/2019 2:10 AM 01/16/2019 5:50 PM * DNR Date Activated Date Inactivated Comments 12/20/2018 3:14 PM 12/21/2018 7:59 PM Care Teams Flying I Instructor Relationship Specialty Start Date End Date Joan Rojas DO [address] [place] [address] PCP - General FAMILY PRACTICE 06/21/24 Nola Franklin, [facility] NURSE PRACTITIONER 05/19/20 Jim White MD [facility] [address] [place] [address] [place] Pest Control Specialist INTERVENTIONAL CARDIOLOGY 02/21/19
--- OUTSIDE RECORDS SUMMARY | 2024-07-07 13:59 | XMS_ITS | Clinical Summary ---
Author Organization [facility] HealthCare Care Team Providers Care Pump Installation And Servicer Name Role Phone No, Physician Primary Care Provider [phone] Allergies Active Allergy Reactions Criticality Noted Date [...] on file Legal Sex Female 7:06 PM BANK REPRESENTATIVE Gender Identity Not on file Sexual Orientation Not on file Obstetrics History Last Filed Vital Signs Vital Sign Reading Time Taken Comments Blood Pressure 126/73 02/03/2024 2:00 PM BANK REPRESENTATIVE Pulse 79 02/03/2024 2:00 PM BANK REPRESENTATIVE Temperature 36.8 C (98.3 F) 02/03/2024 11:22 AM BANK REPRESENTATIVE Respiratory Rate 17 02/03/2024 11:2 2 AM BANK REPRESENTATIVE Oxygen Saturation 94% 02/03/2024 2:00 PM BANK REPRESENTATIVE Inhaled Oxygen Concentration - - Weight 58.5 kg (128 lb 14.4 oz) 01/07/2024 4:14 PM BANK REPRESENTATIVE Height 157.5 cm (5' 2.01 ) 01/07/2024 4:14 PM CS T Body Mass Index 23.57 01/07/2024 4:14 PM BANK REPRESENTATIVE Plan of Treatment Health Maintenance Due Date [...] Completed 08/13/2022, 08/2016 Insurance UHC MEDICARE ADVANTAGE [facility] MEDICARE Address: [address] [place] [address] [facility] HMO REF [facility] MEDICARE Address: [address] [place] [address] UHC MEDICARE ADVANTAGE Care Teams Pump Installation And Servicer Relationship Specialty Start Date End Date No, Physician PCP - General 02/03/24
--- OUTSIDE RECORDS SUMMARY | 2024-07-07 13:59 | XMS_ITS | Referral Summary ---
Author Organization [facility] Health[facility] Care Team Providers Care Electronic Controls Repairer Supervisor Name Role Phone No, Physician Primary Care Provider [phone] Allergies Active Allergy Reactions Criticality Noted Date [...] on file Legal Sex Female 7:06 PM JEWEL FLAT SURFACER Gender Identity Not on file Sexual Orientation Not on file Last Filed Vital Signs Vital Sign Reading Time Taken Comments Blood Pressure 126/73 02/03/2024 2:00 PM JEWEL FLAT SURFACER Pulse 79 02/03/2024 2:00 PM JEWEL FLAT SURFACER Temperature 36.8 C (98.3 F) 02/03/2024 11:22 AM JEWEL FLAT SURFACER Respiratory Rate 17 02/03/2024 11:2 2 AM JEWEL FLAT SURFACER Oxygen Saturation 94% 02/03/2024 2:00 PM JEWEL FLAT SURFACER Inhaled Oxygen Concentration - - Weight 58.5 kg (128 lb 14.4 oz) 01/07/2024 4:14 PM JEWEL FLAT SURFACER Height 157.5 cm (5' 2.01 ) 01/07/2024 4:14 PM CS T Body Mass Index 23.57 01/07/2024 4:14 PM JEWEL FLAT SURFACER Plan of Treatment Not on file Insurance [facility] MEDICARE ADVANTAGE [facility] HMO REF [employer] MEDICARE ADVANTAGE Care Teams Electronic Controls Repairer Supervisor Relationship Specialty Start Date End Date No, Physician PCP - General 02/03/24
== END 2024-07-07 13:49 | disposition home or self-care (01) ==
PROVIDERS: PCP Family Medicine; Visit Provider Nurse Practitioner
DX: R93.89 Abnormal findings on diagnostic imaging of other specified body structures (principal); R07.81 Pleurodynia
CPT/HCPCS: 71046

== ENCOUNTER 2024-07-15 07:01 | Outpatient (CLI) | payer MEDICARE, MEDICAID, SELFPAY ==
--- OUTSIDE RECORDS SUMMARY | 2024-07-15 07:04 | XMS_ITS | Encounter Summary ---
Author Organization [facility] Address [address] [place] [address] Care Team Providers Care Equipment Associate Name Role Phone Nola Franklin ENGINEER-BC Primary Care Provider [phone] Rigoberto Crystal L ENGINEER-BC Primary Care Provider [phone] Rigoberto Crystal L ENGINEER-BC Unavailable [phone] Jim White MD Unavailable [phone] Joan Rojas DO Primary Care Provider [phone] Encounter Details Date Type Department Care Team (Late st Contact Info) Description 01/17/2019 Hospital Follow-up Call [facility] Clinical Decision Unit [place], [place] [id number] Lan Arreola, [place] Social History Tobacco [...] Industry 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 Answer Date of Assessment Author Status No 01/15/2019 7:00 AM HEAVY DUTY MECHANIC Activ e * Do you have serious [...] documented as of this encounter Care Teams Equipment Associate Relationship Specialty Start Date End Date Nola Franklin FNP-BC PCP - General NURSE PRACTITIONER 11/02/18 05/18/20 Nola Franklin FNP-BC PCP - General NURSE PRACTITIONER 05/19/20 06/20/24 Joan Rojas DO [address] [place] [address] [place] [address] PCP - General FAMILY PRACTICE 06/21/24 Nola Franklin, [facility]- NURSE PRACTITIONER 05/19/20 Jim White MD [address] [place] [address] Forest Equestrian Trainer INTERVENTIONAL CARDIOLOGY 02/21/19 documented as of this encounter
--- OUTSIDE RECORDS SUMMARY | 2024-07-15 07:04 | XMS_ITS | Referral Summary ---
Author Organization [facility] HealthCare Care Team Providers Care Lacquer Polisher Name Role Phone No, Physician Primary Care Provider [phone] Allergies Active Allergy Reactions Criticality Noted Date [...] on file Legal Sex Female 7:06 PM VOLUNTEER SERVICES MANAGER Gender Identity Not on file Sexual Orientation Not on file Last Filed Vital Signs Vital Sign Reading Time Taken Comments Blood Pressure 126/73 02/03/2024 2:00 PM VOLUNTEER SERVICES MANAGER Pulse 79 02/03/2024 2:00 PM VOLUNTEER SERVICES MANAGER Temperature 36.8 C (98.3 F) 02/03/2024 11:22 AM VOLUNTEER SERVICES MANAGER Respiratory Rate 17 02/03/2024 11:2 2 AM VOLUNTEER SERVICES MANAGER Oxygen Saturation 94% 02/03/2024 2:00 PM VOLUNTEER SERVICES MANAGER Inhaled Oxygen Concentration - - Weight 58.5 kg (128 lb 14.4 oz) 01/07/2024 4:14 PM VOLUNTEER SERVICES MANAGER Height 157.5 cm (5' 2.01 ) 01/07/2024 4:14 PM CS T Body Mass Index 23.57 01/07/2024 4:14 PM VOLUNTEER SERVICES MANAGER Plan of Treatment Not on file Insurance [facility] MEDICARE ADVANTAGE [facility] MDCR HMO REF [employer] MEDICARE ADVANTAGE Care Teams Lacquer Polisher Relationship Specialty Start Date End Date No, Physician PCP - General 02/03/24
--- OUTSIDE RECORDS SUMMARY | 2024-07-15 07:04 | XMS_ITS | Encounter Summary ---
Author Organization [facility] Address [address] [place] [address] Phone Care Team Providers Care Downstairs Maid Name Role Phone RigobertoNola LIFE ENRICHMENT MANAGER Unavailable [phone] Doreen Mejía LIFE ENRICHMENT MANAGER Primary Care Provider No, Physician Primary Care Provider [phone] Encounter Details Date Type Department Care Team (Late st Contact Info) Description 10/29/2020 Telephone [facility] Oncology [address] [facility] Advanced Medicine 7th [place] [address] [place] [address] Wendy Ng Social History Tobacco Use Types Packs/Day Years Used Date Smoking Tobacco: Every Day Cigarettes Alcohol Use Standard Drinks/Week Comments Not Currently 0 (1 standard drink = 0.6 oz pur e alcohol) Comments Unknown Sex and Gender Information Value Date Recorded Sex Assigned at Not on file Legal Sex Female 7:06 PM OFFICE SUPPORT ASSISTANT Gender Identity Not on file Sexual Orientation Not on file documented as of this encounter Plan of Treatment Not on file documented as of this encounter Visit Diagnoses Not on filedocumented in this encounter Additional Health Concerns Infection Onset Date Last Indicated Resolved Time COVID: Suspected 04/06/2023 04/06/2023 04/06/2023 2:38 PM OFFICE SUPPORT ASSISTANT documented as of this encounter Care Teams Downstairs Maid Relationship Specialty Start Date End Date Doreen Mejía NP [address] [place] [address] PCP - General Internal Medicine 12/05/20 02/02/24 No, Physician PCP - General 02/03/24 oNla Franklin NP [address] [place] [address] Nurse Practitioner Nurse Practitioner 11/06/20 12/04/20 documented as of this encounter
--- OUTSIDE RECORDS SUMMARY | 2024-07-15 07:04 | XMS_ITS | Clinical Summary ---
Author Organization [facility] Care Team Providers Care Medical Billing Associate Name Role Phone No, Physician Primary Care Provider [phone] Allergies Active Allergy Reactions Criticality Noted Date [...] on file Legal Sex Female 7:06 PM ENVIRONMENTAL SCIENCES PROFESSOR Gender Identity Not on file Sexual Orientation Not on file Obstetrics History Last Filed Vital Signs Vital Sign Reading Time Taken Comments Blood Pressure 126/73 02/03/2024 2:00 PM ENVIRONMENTAL SCIENCES PROFESSOR Pulse 79 02/03/2024 2:00 PM ENVIRONMENTAL SCIENCES PROFESSOR Temperature 36.8 C (98.3 F) 02/03/2024 11:22 AM ENVIRONMENTAL SCIENCES PROFESSOR Respiratory Rate 17 02/03/2024 11:2 2 AM ENVIRONMENTAL SCIENCES PROFESSOR Oxygen Saturation 94% 02/03/2024 2:00 PM ENVIRONMENTAL SCIENCES PROFESSOR Inhaled Oxygen Concentration - - Weight 58.5 kg (128 lb 14.4 oz) 01/07/2024 4:14 PM ENVIRONMENTAL SCIENCES PROFESSOR Height 157.5 cm (5' 2.01 ) 01/07/2024 4:14 PM CS T Body Mass Index 23.57 01/07/2024 4:14 PM ENVIRONMENTAL SCIENCES PROFESSOR Plan of Treatment Health Maintenance Due Date [...] Completed 08/13/2022, 08/2016 Insurance UHC MEDICARE ADVANTAGE [facility] HMO REF UHC MEDICARE ADVANTAGE Care Teams Medical Billing Associate Relationship Specialty Start Date End Date No, Physician PCP - General 02/03/24
--- OUTSIDE RECORDS SUMMARY | 2024-07-15 07:05 | XMS_ITS | Clinical Summary ---
Author Organization [facility] Address [address] [place] [address] Care Team Providers Care Consultant Technology Name Role Phone Nola Franklin DISCOTHEQUE DANCER-BC Unavailable [phone] Jim White MD Unavailable [phone] Joan Rojas DO Primary Care Provider [phone] Allergies Active Allergy Reactions Criticality Noted Date [...] top Taking at Discharge) vitamin D2, ergocalciferol, 78293 UNITS capsuleIndication s:Tuesdays Take 50,000 Units by mouth weekly. Indications: Tuesdays Discontinued hydrALAZINE 25 MG tablet Take 1 tablet by mouth 2 (two) times a day. 019 2024 Discontinued gabapentin 300 MG capsule Take [...] of aorta Hypertension AARON on CPAP Lymphoma ([facility]) Encounters Date Type Department Care Team Description 06/23/2024 9:00 AM CDT Home Care Visit [facility] [address] [place] [address] [place] [address] Sharron Sanders RN SN NON ADMIT SOC 06/19/2024 7:17 PM CDT - 06/20/2024 2:16 PM CDT Hospital Encounter Health system Medical/Surgical [address] [place] [address] Consuelo Osman MD Verma, Seema, MD Engele, Christopher, [...] drink = 0.6 oz pur e alcohol) [facility] Utilities Answer Date Recorded In the past 12 months has e [employer], gas, oil, or water I AND [employer] threatened to shut off services in your [...] any time in the past 12 m [facility], were you homeless or living in a prison (including now)? 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] * TSH W/REFLEX (06/20/2024 4:25 AM CDT) Pathologist [facility] TSH 2.935 0.358 - 3.74 uIU/ML 06/20/2024 5:41 AM CDT [facility] Comment: HIGH DOSES OF BIOTIN MAY INTERFERE WITH THIS TEST RESULT. CORRELATION TO CLINICAL HISTORY AND PRESENTATION RECOMMENDED. FREE T4 NOT INDICATED 06/20/2024 4:25 AM CDT us Kennedy Tamayo MD LABORATORY Final Result [facility] [address] [place] [address], [place] [phone] * (ABNORMAL) COMPREHENSIVE METABOLIC PANEL (06/20/2024 4:25 AM CDT) Only the most recent of2 resultswithin the time period is included. Pathologist [facility] GLUCOSE 98 70 - 99 MG/DL 06/20/2024 5:41 AM CDT [facility] BUN 10 7 - 18 MG/DL 06/20/2024 5:41 AM CDT [facility] CREATININE S/P/B 1.06(H) 0.55 - 1.02 MG/DL 06/20/2024 5:41 AM CDT [facility] SODIUM S/P/B 144 136 - 145 MMOL/L 06/20/2024 5:41 AM CDT [facility] POTASSIUM S/P/B 3.2(L) 3.5 - 5.1 MMOL/L 06/20/2024 5:41 AM CDT [facility] CHLORIDE S/P/B 107 100 - 108 MMOL/L 06/20/2024 5:41 AM CDT [facility] CO2 28.3 21 - 32 MMOL/L 06/20/2024 5:41 AM [facility] CALCIUM S/P/B 8.7 8.5 - 10.1 MG/DL 06/20/2024 5:41 AM [facility] BILIRUBIN TOTAL S/P/B 0.1(L) 0.2 - 1.2 MG/DL 06/20/2024 5:41 AM [facility] Comment: THIS ASSAY IS NOT RECOMMENDED FOR PATIENTS UNDERGOING TREATMENT WITH ELTROMBOPAG DUE TO THE POTENTIAL FOR FALSELY ELEVATED RESULTS. TOTAL PROTEIN S/P/B 5.8(L) 6.4 - 8.2 G/DL 06/20/2024 5:41 AM [facility] ALBUMIN S/P/B 2.9(L) 3.4 - 5.0 G/DL 06/20/2024 5:41 AM [facility] AST 13(L) 15 - 37 U/L 06/20/2024 5:41 AM [facility] ALT 21 14 - 55 U/L 06/20/2024 5:41 AM [facility] ALKALINE PHOSPHATASE S/P/B 84 50 - 136 U/L 06/20/2024 5:41 AM [facility] ANION GAP 8.7 5 - 15 MMOL/L 06/20/2024 5:41 AM [facility] BUN CREATININE RATIO 9.4 6 - 26 06/20/2024 5:41 AM [facility] A/G RATIO 1.0 1.0 - 2.0 RATIO 06/20/2024 5:41 AM [facility] GFR ESTIMATE 57(L) >90 ML/MIN/1.7 3 M2 06/20/2024 5:41 AM [facility] Comment: NOTE: eGFR is not calculated for patients <18 years of age. This is an estimated GFR calculation using the new CKD EPI creatinine equation without race and so does not require a correction factor for race. This estimated GFR should not be used for calculating drug doses. 06/20/2024 4:25 AM CDT us Kennedy Tamayo MD LABORATORY Final Result Performing Organization Address [facility] Co de Phone Number [facility] [address] [place] [address], [place] [phone] * TROPONIN, QUANT (06/20/2024 4:25 AM CDT) Only the most recent of3 resultswithin the time period is included. Pathologist [facility] TROPONIN I HIGH SENSITIVITY 13 0 - 54 ng/L 06/20/2024 5:41 AM CDT [facility] Comment: HIGH DOSES OF BIOTIN, TROPONIN-SPECIFIC AUTOANTIBODIES, AND ANTIBODY THERAPY CONTAINING HAMA MAY INTERFERE WITH THIS TEST RESULT. CORRELATION TO CLINICAL HISTORY AND PRESENTATION RECOMMENDED. 06/20/2024 4:25 AM CDT us Kennedy Tamayo MD LABORATORY Final Result Performing Organization Address [facility] Co de Phone Number [facility] [address] [place] [address], [place] [phone] * MAGNESIUM (06/20/2024 4:25 AM CDT) Pathologist [facility] MAGNESIUM 1.8 1.8 - 2.4 MG/DL 06/20/2024 5:41 AM CDT [facility] 06/20/2024 4:25 AM CDT us Kennedy Tamayo MD LABORATORY Final Result Performing Organization Address [facility] Co de Phone Number [facility] [address] [place] [address], [place] [phone] * (ABNORMAL) CBC W/DIFF AUTOMATED (06/20/2024 4:24 AM CDT) Only the most recent of2 resultswithin the time period is included. [facility] Signature WBC 7.05 4.50 - 11.00 x10'3/uL 06/20/2024 5:04 AM CDT [facility] RBC 3.39(L) 4.20 - 5.40 x10'6/uL 06/20/2024 5:04 AM CDT [facility] HGB 10.0(L) 12.0 - 16.0 G/DL 06/20/2024 5:04 AM T [facility] HCT 31.7(L) 38.0 - 48.0 % 06/20/2024 5:04 AM CDT [facility] MCV 93.5 81.0 - 99.0 FL 06/20/2024 5:04 AM CDT [facility] MCH 29.5 27.0 - 31.0 PG 06/20/2024 5:04 AM CDT [facility] MCHC 31.5(L) 32.0 - 36.0 G/DL 06/20/2024 5:04 AM T [facility] RDW 12.9 11.5 - 14.5 % 06/20/2024 5:04 AM T [facility] PLT 389 130 - 400 x10'3/uL 06/20/2024 5:04 AM CDT [facility] MPV 9.0(L) 9.3 - 12.2 FL 06/20/2024 5:04 AM T [facility] CBC COMMENT AUTOMATED RBC MORPHOLOGY AND PLATELET EVALUATION NORMAL 06/20/2024 5:04 AM CDT [facility] NEUTROPHILS % 57.7 % 06/20/2024 5:04 AM CDT [facility] LYMPHOCYTES % 26.0 % 06/20/2024 5:04 AM CDT [facility] MONOCYTES % 11.6 % 06/20/2024 5:04 AM T [facility] EOSINOPHILS 3.7 % 06/20/2024 5:04 AM CDT [facility] BASOPHILS 0.7 % 06/20/2024 5:04 AM CDT [facility] IMMATURE GRANS % 0.3 % 06/21/19 5:04 AM CDT [facility] NRBC % 0.0 % 06/20/2024 5:04 AM T [facility] ABS. NEUTROPHILS TOTAL 4.07 1.80 - 7.70 x10'3/uL 06/20/2024 5:04 AM T [facility] ABS. LYMPHOCYTES 1.83 1.00 - 4.80 x10'3/uL 06/20/2024 5:04 AM T [facility] ABS. MONOCYTES 0.82 0.24 - 0.86 x10'3/uL 06/20/2024 5:04 AM T [facility] ABS. EOSINOPHILS 0.26 0.04 - 0.36 x10'3/uL 06/20/2024 5:04 AM T [facility] ABS. BASOPHILS 0.05 0.01 - 0.08 x10'3/uL 06/20/2024 5:04 AM T [facility] ABS. IMMATURE GRANULOCYTES 0.02 0.00 - 0.49 x10'3/uL 06/20/2024 5:04 AM [facility] ABS. NUCLEATED RBC'S 0.00 0.00 - 0.01 x10'3/uL 06/20/2024 5:04 AM T [facility] 06/20/2024 4:24 AM CDT us Kennedy Tamayo MD LABORATORY Final Result [facility] [address] [place] [address], [place] [phone] * TRANSFUSE PLATELET PHERESIS (06/20/2024 12:05 AM CDT) Consuelo Osman MD NURSING TREATMENT ORD ERABLES - BLOOD ADMIN Final Result * TYPE & SCREEN (06/19/2024 9:49 PM CDT) ABO/RH A POSITIVE 06/19/2024 10:43 PM CDT [facility] ANTIBODY SCREEN NEGATIVE 06/19/2024 10:43 PM CDT [facility] SAMPLE EXPIRATION 06/22/2024,2 359 06/19/2024 10:01 PM CDT [facility] 06/19/2024 9:49 PM CDT Consuelo Osman MD BLOOD BANK TEST ORDER GILDA Final Result Performing Organization Address [facility] Co de Phone Number [facility] [address] [place] [address], [place] [phone] * CT CHEST+ABD+PEL W CON (06/19/2024 8:51 [...] 9:00 PM Narrative 06/19/2024 9:18 PM CDT [facility] [address] [place] [address] Examination: CT CHEST+ABD+PEL W CON Clinical history: [...] transverse fracture of the sternal body with mi [id number]||2024-07-15 07:24:00|CT_ITS|AARON|Imaging|[id number]|"CT Scan of the Chest without Contrast: Clinical Indication: Abnormal findings on diagnostic imaging, lymphoma Technique: Contiguous sections were acquired throughout the chest without intravenous contrast. Dose reduction technique was used on this scan by utilizing automated exposure control and iterative recon struction technique. The dose-length product (DLP) was 121.27 mGy-cm. Findings: There is no evidence of any significant mediastinal, hilar or axillary lymphadenopathy. Extensive cor onary artery calcifications are present. There is no evidence of pleural or pericardial effusion. Scattered calcified granulomas are present. 3 mm pleural-based nodule present right upper lobe (axial image 34). Images through the upper abdomen reveal no abnormalities. Prior vertebroplasty of T5, T6, and T7 note d. There is a chronic fracture deformity at the lateral right eighth rib. There are probable subacute fracture the lateral right fifth rib. Impression: Probable subacute fracture at the lateral right fifth rib, nondisplaced. Chronic fracture deformity o f the lateral right eighth rib. 3 mm right upper lobe nodule, most likely benign. Evidence of prior granulomatous disease. Prior multilevel vertebroplasty, as above. Reviewed, dictated and finalized at [facility]. Impression: Probable subacute fracture at the lateral right fifth rib, nondisplaced. Chroni c fracture deformity of the lateral right eighth rib. 3 mm right upper lobe nodule, most likely benign. Evidence of prior granulomatous disease. Prior multilevel vertebroplasty, as above. "
== END 2024-07-15 07:02 | disposition home or self-care (01) ==
PROVIDERS: PCP Family Medicine; Visit Provider Nurse Practitioner
DX: R93.89 Abnormal findings on diagnostic imaging of other specified body structures (principal); R91.1 Solitary pulmonary nodule; Z98.1 Arthrodesis status
CPT/HCPCS: 71250

== ENCOUNTER 2024-08-10 13:21 | Outpatient (CLI) | payer MEDICARE, MEDICAID, SELFPAY ==
--- NOTE | ~2024-08-10 | CT_ITS ---
CT head without contrast Indication: Intracranial hemorrhage Technique: Serial scans were obtained through the brain without the administration of contrast. Dose reduction technique was used on this scan by utilizing automated exposure control and iterative recon struction technique. The dose-length product (DLP) was 605.33 mGy-cm. Findings: There is no evidence of intracranial hemorrhage, mass lesion, or acute infarct. Probable fo perri calcification adjacent to the left lateral ventricular frontal horn. The ventricles and subarachn oid spaces are dilated, consistent with mild atrophy. Low attenuation regions are seen within the pe riventricular white matter bilaterally, likely representing changes from chronic microvascular ischem ic disease. There is no evidence of edema, mass effect or midline shift. The visualized paranasal s inuses and mastoid air cells are clear. Impression: Probable focal calcification the left frontal lobe versus possibly focal hemorrhage (axial image 33). Consider follow-up exam. Extensive chronic white matter disease. Reviewed, dictated and finalized at [facility]. Impression: Probable focal calcification the left frontal lobe versus possibly focal hemorr elissa (axial image 33). Consider follow-up exam. Extensive chronic white matter disease.
--- OUTSIDE RECORDS SUMMARY | 2024-08-10 15:32 | XMS_ITS | CONTINUITY OF CARE DOCUMENT ---
Author Name lucy ayala Address Unknown Organization [facility] Address [address] [place] [address] Phone [phone] Care Team Providers Care Plaster Die Maker Name Role Phone Telma Kelly MD Unavailable Telma Kelly MD Unavailable [phone] PROBLEMS Condition Status Date Provider Notes AARON--on cpap active Gen Hilario Tobacco abuse active Gen Ahmedzai COPD active Gen Ahmedzai Hyperlipidemia active Gen Ahmedzai Hypertension active Gen Ahmedzai Hypothyroidism active Gen Ahmedzai History of Hodgkins lymphoma active Gen Russo medzai ENCOUNTERS Date Type Provider Location Encounter Diag nosis 08/31 - 08/31 In-person encounter Office Visit Telma Kelly MD [facility] AARON--on cpapTobacco abuseCOPDHyperlipidemiaHypertensionHypothyroidismHis tory of Hodgkins lymphoma INSURANCE PROVIDERS Payer name Policy type / Coverage type [place] red alliance party ID [employer] Other [facility] COMPLETE CARE [id number] (PPO C-SNP) Commercial insurance company [id number] [facility] MEDICARE COMPLETE HMO Other [id number]
--- OUTSIDE RECORDS SUMMARY | 2024-08-10 15:32 | XMS_ITS | Encounter Summary ---
Author Organization [facility] Address [address] [place] [address] Phone Care Team Providers Care Employment Programs Analyst Name Role Phone RigobertoNola GREEN MARKETING ANALYST Unavailable [phone] Doreen Mejía GREEN MARKETING ANALYST Primary Care Provider [phone] No, Physician Primary Care Provider [phone] Encounter Details Date Type Department Care Team (Late st Contact Info) Description 10/29/2020 Telephone [facility] Oncology [address] [facility] Advanced Medicine 7th [place] [address] [place] [address] Wendy Ng Social History Tobacco Use Types Packs/Day Years Used Date Smoking Tobacco: Every Day Cigarettes Alcohol Use Standard Drinks/Week Comments Not Currently 0 (1 standard drink = 0.6 oz pur e alcohol) Comments Unknown Sex and Gender Information Value Date Recorded Sex Assigned at Not on file Legal Sex Female 7:06 PM INDUSTRY CONSULTANT Gender Identity Not on file Sexual Orientation Not on file documented as of this encounter Plan of Treatment Not on file documented as of this encounter Visit Diagnoses Not on filedocumented in this encounter Additional Health Concerns Infection Onset Date Last Indicated Resolved Time COVID: Suspected 04/06/2023 04/06/2023 04/06/2023 2:38 PM INDUSTRY CONSULTANT documented as of this encounter Care Teams Employment Programs Analyst Relationship Specialty Start Date End Date Doreen Mejía NP [address] [place] [address] PCP - General Internal Medicine 12/05/20 02/02/24 No, Physician PCP - General 02/03/24 Nola Franklin NP [address] [place] [address] Nurse Practitioner Nurse Practitioner 11/06/20 12/04/20 documented as of this encounter
--- OUTSIDE RECORDS SUMMARY | 2024-08-10 15:33 | XMS_ITS | Clinical Summary ---
Author Organization [facility] HealthCare Care Team Providers Care Home Care Attendant Name Role Phone No, Physician Primary Care Provider [phone] Allergies Active Allergy Reactions Criticality Noted Date [...] on file Legal Sex Female 7:06 PM COMMUNITY RELATIONS COORDINATOR Gender Identity Not on file Sexual Orientation Not on file Obstetrics History Last Filed Vital Signs Vital Sign Reading Time Taken Comments Blood Pressure 126/73 02/03/2024 2:00 PM COMMUNITY RELATIONS COORDINATOR Pulse 79 02/03/2024 2:00 PM COMMUNITY RELATIONS COORDINATOR Temperature 36.8 C (98.3 F) 02/03/2024 11:22 AM COMMUNITY RELATIONS COORDINATOR Respiratory Rate 17 02/03/2024 11:2 2 AM COMMUNITY RELATIONS COORDINATOR Oxygen Saturation 94% 02/03/2024 2:00 PM COMMUNITY RELATIONS COORDINATOR Inhaled Oxygen Concentration - - Weight 58.5 kg (128 lb 14.4 oz) 01/07/2024 4:14 PM COMMUNITY RELATIONS COORDINATOR Height 157.5 cm (5' 2.01) 01/07/2024 4:14 PM CS T Body Mass Index 23.57 01/07/2024 4:14 PM COMMUNITY RELATIONS COORDINATOR Plan of Treatment Health Maintenance Due Date Last Done Comments Breast Cancer Screening-Mammogram 1955 Colon Cancer Screening-Colonoscopy 1955 Hepatitis C Screening 1955 Osteoporosis Screening-Bone Density Scan 1955 Zoster Vaccine (1 of 2) 1973 Well Visit 65+ 05/25/2019 Covid-19 Vaccine (2 - Modern a risk series) 07/31/2020 07/03/2020 Depression Screening 12/13/2021 12/13/2020 Fall Risk Assessment 12/13/2021 12/13/2020 DTaP/Tdap/Td Vaccine (2 - Td or Tdap) 09/30/2024 09/30/2014 Influenza Vaccine (Season Ended) 2024 12/13/2020, 12/12/2019, 11/15/2018, Additional history exists Hepatitis B Screening Completed 02/05/2017, 017 Pneumococcal vaccine 65+ Completed 08/13/2022, 08/2016 Insurance UHC MEDICARE ADVANTAGE [facility] Address: [address] [place] [address] [facility] HMO REF [facility] Address: [address] [place] [address] UHC MEDICARE ADVANTAGE Care Teams Home Care Attendant Relationship Specialty Start Date End Date No, Physician PCP - General 02/03/24
--- OUTSIDE RECORDS SUMMARY | 2024-08-10 15:33 | XMS_ITS | Referral Summary ---
Author Organization [facility] HealthCare Care Team Providers Care Chair And Couch Maker Name Role Phone No, Physician Primary Care Provider Allergies Active Allergy Reactions Criticality Noted Date [...] on file Legal Sex Female 7:06 PM CRYSTALLIZER OPERATOR Gender Identity Not on file Sexual Orientation Not on file Last Filed Vital Signs Vital Sign Reading Time Taken Comments Blood Pressure 126/73 02/03/2024 2:00 PM CRYSTALLIZER OPERATOR Pulse 79 02/03/2024 2:00 PM CRYSTALLIZER OPERATOR Temperature 36.8 C (98.3 F) 02/03/2024 11:22 AM CRYSTALLIZER OPERATOR Respiratory Rate 17 02/03/2024 11:2 2 AM CRYSTALLIZER OPERATOR Oxygen Saturation 94% 02/03/2024 2:00 PM CRYSTALLIZER OPERATOR Inhaled Oxygen Concentration - - Weight 58.5 kg (128 lb 14.4 oz) 01/07/2024 4:14 PM CRYSTALLIZER OPERATOR Height 157.5 cm (5' 2.01) 01/07/2024 4:14 PM CS T Body Mass Index 23.57 01/07/2024 4:14 PM CRYSTALLIZER OPERATOR Plan of Treatment Not on file Insurance [facility] MEDICARE ADVANTAGE [facility] HMO REF [employer]HC MEDICARE ADVANTAGE Care Teams Chair And Couch Maker Relationship Specialty Start Date End Date No, Physician PCP - General 02/03/24
== END 2024-08-10 13:22 | disposition home or self-care (01) ==
PROVIDERS: PCP Family Medicine; Visit Provider Nurse Practitioner
DX: I61.9 Nontraumatic intracerebral hemorrhage, unspecified (principal); R90.82 White matter disease, unspecified
CPT/HCPCS: 70450

== ENCOUNTER 2024-10-10 15:06 | Emergency (ER) | payer MEDICARE, SELFPAY ==
[2024-10-10] VITALS (20 sets, daily range): BP systolic 91–166; BP diastolic 52–93; PULSE 91–111; RESP 8–26; TEMP 36.6; O2SAT 78–99
--- NOTE | ~2024-10-10 | CT_ITS ---
CLINICAL INDICATION: Nausea vomiting and lower abdominal pain COMPARISON: 12/29/2005. TECHNIQUE: Multiple contiguous axial images of the abdomen and pelvis were performed without the admi nistration of intravenous contrast The dose-length product (DLP) was 300.02 mGy-cm. Automated exposure control and iterative reconstruction technique were employed. FINDINGS/OBSERVATIONS: Visualized lower thorax: Right basilar and lingular atelectasis. Remainder of the lung bases are clear. The heart is of normal size, without pericardial effusion. Small hiatal hernia is present. Liver: Punctate calcifications identified within the hepatic parenchyma, suggesting prior granulomato us disease. The remainder of the liver demonstrates homogeneous attenuation and is not enlarged. Gallbladder and biliary system: The gallbladder is surgically absent. Common bile duct is markedly enlarged, which may be the physiologic response to gallbladder removal, although typically, greater than 10 mm is abnormal, even postcholecystectomy. This patient's common b ile duct measures 17 mm in greatest caliber. Trace intrahepatic biliary ductal dilatation is also myranda ntified, although examination is limited without intravenous contrast. Pancreas: Limited evaluation of the pancreas secondary to the lack of intravenous contrast. Spleen: Punctate calcifications identified within the splenic parenchyma, suggesting prior granulomat ous disease. The remainder of the spleen demonstrates otherwise homogeneous attenuation and is not enlarged. Kidneys: The bilateral kidneys are unremarkable, without hydronephrosis or renal calculi. Adrenal glands: Unremarkable. Gastrointestinal tract: Increased attenuation within the lumen of the proximal and distal distal small bowel, possibly repres enting liquid medication for which clinical correlation is needed. Alternatively, this could represent acute hemorrhage within the small bowel, although given the quant ity of increased attenuation, this bleeding would be quite rapid and the patient would be acutely ill . Clinical correlation is needed. Multiple air-fluid levels are identified within the colon and distal small bowel, consistent with pat ient's history of diarrhea and colitis. Appendix: The appendix is not definitively visualized. However, no pericecal inflammatory change is identified suggest the presence of acute appendicitis. Vasculature: Densely calcified atherosclerotic disease, without aneurysmal dilatation. Lymph nodes: No pathologically enlarged or morphologically suspicious lymph nodes within the retroperitoneum or at the root of the mesentery. Pelvic structures: The bladder is only minimally distended, and demonstrates thickened gilbert with surrounding inflammato ry change for which a cystitis is suspected. The uterus is either surgically absent or markedly atrophic. The lower uterine segment is unremarkabl e. Body wall and musculoskeletal: Small fat-containing supraumbilical hernia. Age-appropriate degenerative disease within the lower thoracic and lumbosacral spine. IMPRESSION: Significant distention of the common bile duct, possibly normal physiologic response postcholecystect guru although the duct measures close to 2 cm in caliber. Increased attenuation within the lumen of the proximal and distal small bowel, for which either medic ation ingestion versus acute bleeding (less likely) is suspected. Given the quantity of the increased attenuation, if the patient would be acutely ill, and likely demonstrate at least heme positive liqu id stool. Clinical correlation is needed. The colon and distal small bowel are distended with liquid stool, consistent with patient's history o f nausea, vomiting and diarrhea. Reviewed, dictated and finalized at location A. IMPRESSION: Significant distention of the common bile duct, possibly normal physiologic res ponse postcholecystectomy although the duct measures close to 2 cm in caliber. Increased attenuation within the lumen of the proximal and distal small bowel, for which either medication ingestion versus acute bleeding (less likely) is ann spected. Given the quantity of the increased attenuation, if the patient would be acutely ill, and likely demonstrate at least heme positive liquid stool. Cli nical correlation is needed. The colon and distal small bowel are distended with liquid stool, consistent wi th patient's history of nausea, vomiting and diarrhea.
--- OUTSIDE RECORDS SUMMARY | 2024-10-10 15:19 | XMS_ITS | Encounter Summary ---
Author Organization [facility] Address [address] [place] [address] Care Team Providers Care Odd Job Worker Name Role Phone Nola Franklin MANAGER BENEFIT-BC Primary Care Provider [phone] Rigoberto Crystal L MANAGER BENEFIT-BC Primary Care Provider [phone] Rigoberto Crystal L MANAGER BENEFIT-BC Unavailable [phone] Jim White MD Unavailable [phone] Joan Rojas DO Primary Care Provider [phone] Encounter Details Date Type Department Care Team (Late st Contact Info) Description 01/17/2019 Hospital Follow-up Call [facility] Clinical Decision Unit [place], [place] [id number] Lan Arreola, [place] Social History Tobacco [...] Industry 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 Job End Date 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 Answer Date of Assessment Author Status No 01/15/2019 7:00 AM ACTUARIAL ASSISTANT Activ e * Do you have serious [...] documented as of this encounter Care Teams Odd Job Worker Relationship Specialty Start Date End Date Nola Franklin FNP-BC PCP - General NURSE PRACTITIONER 11/02/18 05/18/20 Nola Franklin FNP-BC PCP - General NURSE PRACTITIONER 05/19/20 06/20/24 Joan Rojas DO [address] [place] [address] [place] [address] PCP - General FAMILY PRACTICE 06/21/24 Nola Franklin, [facility]- NURSE PRACTITIONER 05/19/20 Jim White MD [id number] [place] [address] [place] Kier Tender INTERVENTIONAL CARDIOLOGY 02/21/19 documented as of this encounter
--- OUTSIDE RECORDS SUMMARY | 2024-10-10 15:19 | XMS_ITS | Continuity of Care Document ---
Author Organization [facility] Address [address] [place] [address] Insurance Providers Payer Plan Claims Address Claims Phone Policy Number Group Number Relation Employer Guarantor Name Guarantor Guarantor Address Guarantor Phone [employer] [address] [address], [place] [id number] tel:[phone] Self Geena Kaminskie 1955 [address], [place] [address] [employer] [address] [address], [place] [id number] tel:[phone] Self Geena Reyez 1955 [address] , [place] [address] [employer] [address] [address], [place] [id number] tel:[phone] Self Geena Reyez 1955 [address], [place] [address] Problems Unknown Problems Results No Results Allergies, adverse reactions, alerts No known allergies and adverse reactions Medications No administered medications reported Vital Signs Date Vital Result Comment 06/06/2022 Inhaled Oxygen Concentration 21.0 % N Temperature 97.3 [degF] N Oxygen Saturation 96 % N Respiratory Rate 18 /min N Heart Rate 56 /min N Blood Pressure Systolic 138 mm[Hg] N Blood Pressure Diastolic 72 mm[Hg] N Body Height 62 [in_i] N Body Weight 140 [lb_av] N Body Mass Index 25.6 kg/m2 N 08/12/2022 Inhaled Oxygen Concentration 21.0 % N Temperature 97.3 [degF] N Oxygen Saturation 94 % N Respiratory Rate 22 /min N Heart Rate 83 /min N Blood Pressure Systolic 139 mm[Hg] N Blood Pressure Diastolic 90 mm[Hg] N Body Height 62 [in_i] N 07/04/2022 Inhaled Oxygen Concentration 21.0 % N Temperature 97.7 [degF] N Oxygen Saturation 97 % N Respiratory Rate 22 /min N Heart Rate 91 /min N Blood Pressure Systolic 150 mm[Hg] N Blood Pressure Diastolic 90 mm[Hg] N Body Height 62 [in_i] N 09/05/2022 Inhaled Oxygen Concentration 21.0 % N Temperature 97.6 [degF] N Oxygen Saturation 97 % N Respiratory Rate 20 /min N Heart Rate 82 /min N Blood Pressure Systolic 140 mm[Hg] N Blood Pressure Diastolic 78 mm[Hg] N Body Height 62 [in_i] N 10/06/2022 Inhaled Oxygen Concentration 21.0 % N Faces Pain Scale 0.0 N Temperature 97.8 [degF] N Oxygen Saturation 95 % N Respiratory Rate 20 /min N Heart Rate 79 /min N Blood Pressure Systolic 120 mm[Hg] N Blood Pressure Diastolic 74 mm[Hg] N Body Height 62 [in_i] N 12/15/2022 Inhaled Oxygen Concentration 21.0 % N Faces Pain Scale 0.0 N Oxygen Saturation 93 % N Heart Rate 74 /min N Blood Pressure Systolic 132 mm[Hg] N Blood Pressure Diastolic 78 mm[Hg] N Body Height 62 [in_i] N Body Weight 135 [lb_av] N Body Mass Index 24.7 kg/m2 N 01/11/2023 Inhaled Oxygen Concentration 21.0 % N Faces Pain Scale 0.0 N Temperature 98.4 [degF] N Oxygen Saturation 97 % N Respiratory Rate 22 /min N Heart Rate 94 /min N Blood Pressure Systolic 137 mm[Hg] N Blood Pressure Diastolic 67 mm[Hg] N Body Height 62 [in_i] N 02/03/2023 Inhaled Oxygen Concentration 21.0 % N Faces Pain Scale 0.0 N Oxygen Saturation 94 % N Respiratory Rate 20 /min N Heart Rate 82 /min N Blood Pressure Systolic 142 mm[Hg] N Blood Pressure Diastolic 78 mm[Hg] N Body Height 62 [in_i] N Body Weight 134 [lb_av] N Body Mass Index 24.5 kg/m2 N 08/07/2023 Inhaled Oxygen Concentration 21.0 % N Temperature 98 [degF] N Oxygen Saturation 94 % N Respiratory Rate 16 /min N Heart Rate 76 /min N Blood Pressure Systolic 144 mm[Hg] N Blood Pressure Diastolic 76 mm[Hg] N Body Height 62 [in_i] N 08/17/2023 Faces Pain Scale 0.0 N Body Height 62 [in_i] N Body Weight 131 [lb_av] N Body Mass Index 24 kg/m2 N 11/27/2023 Inhaled Oxygen Concentration 21.0 % N Faces Pain Scale 0.0 N Temperature 97.5 [degF] N Oxygen Saturation 96 % N Respiratory Rate 16 /min N Heart Rate 84 /min N Blood Pressure Systolic 126 mm[Hg] N Blood Pressure Diastolic 64 mm[Hg] N Body Height 62 [in_i] N Body Weight 125 [lb_av] N Body Mass Index 22.9 kg/m2 N 01/19/2024 Inhaled Oxygen Concentration 21.0 % N Faces Pain Scale 0.0 N Oxygen Saturation 97 % N Respiratory Rate 18 /min N Heart Rate 88 /min N Blood Pressure Systolic 128 mm[Hg] N Blood Pressure Diastolic 74 mm[Hg] N Body Height 62 [in_i] N Body Weight 125 [lb_av] N Body Mass Index 22.9 kg/m2 N 03/07/2024 Faces Pain Scale 0.0 N Blood Pressure Systolic 128 mm[Hg] N Blood Pressure Diastolic 74 mm[Hg] N Body Height 62 [in_i] N Body Weight 128 [lb_av] N Body Mass Index 23.4 kg/m2 N 03/25/2024 Body Height 62 [in_i] N 04/22/2024 Inhaled Oxygen Concentration 21.0 % N Oxygen Saturation 97 % N Respiratory Rate 18 /min N Heart Rate 78 /min N Blood Pressure Systolic 128 mm[Hg] N Blood Pressure Diastolic 74 mm[Hg] N Body Height 62 [in_i] N Body Weight 158 [lb_av] N Body Mass Index 28.9 kg/m2 N Social History No smoking Hx information available Functional Status Category Condition Date Problem (Feeding: Independent) Feeding: Independ ent 06/06/2022 Problem (Bathing: Independen t (or in shower)) Bathing: Independent (or in shower) 06/06/2022 Problem (Grooming: Independe nt face/hair/teeth/ shaving (implements provided)) Grooming: Independent face/hair/teeth/ shaving (implements provided) 06/06/2022 Problem (Dressing: Independe nt (including buttons, zips, laces, etc.)) Dressing: Independent (including buttons, zips, laces, etc.) 06/06/2022 Problem (Bowels: Continent) Bowels: Continent Problem (Bladder: Continent) Bladder: Continent 06/06/2022 Problem (Toilet use: Indepen dent (on and off, dressing, wiping)) Toilet use: Independent (on and off, dressing, wiping) 06/06/2022 Problem (Transfers (bed to c hair and back): Independent) Transfers (bed to chair and back): Independent 06/06/2022 Problem (Mobility (on level surfaces): Independent (but may use any aid; for example, stick) >50 yards) Mobility (on level surfaces): Independent (but may use any aid; for example, stick) >50 yards 06/06/2022 Problem (Stairs: Independent) Stairs: Independen t 06/06/2022 Problem (Total score: 100) Total score: 100 08/2022 Problem (Feeding: Independent) Feeding: Independ ent 08/13/2022 Problem (Bathing: Independen t (or in shower)) Bathing: Independent (or in shower) 08/13/2022 Problem (Grooming: Independe nt face/hair/teeth/ shaving (implements provided)) Grooming: Independent face/hair/teeth/ shaving (implements provided) 08/13/2022 Problem (Dressing: Independe nt (including buttons, zips, laces, etc.)) Dressing: Independent (including buttons, zips, laces, etc.) 08/13/2022 Problem (Bowels: Continent) Bowels: Continent Problem (Bladder: Continent) Bladder: Continent 08/13/2022 Problem (Toilet use: Indepen dent (on and off, dressing, wiping)) Toilet use: Independent (on and off, dressing, wiping) 08/13/2022 Problem (Transfers (bed to c hair and back): Independent) Transfers (bed to chair and back): Independent 08/13/2022 Problem (Mobility (on level surfaces): Independent (but may use any aid; for example, stick) >50 yards) Mobility (on level surfaces): Independent (but may use any aid; for example, stick) >50 yards 08/13/2022 Problem (Stairs: Independent) Stairs: Independen t 08/13/2022 Problem (Total score: 100) Total score: 100 07/31 Problem (Dressing: Independe nt (including buttons, zips, laces, etc.)) Dressing: Independent (including buttons, zips, laces, etc.) 08/17/2023 Problem (Grooming: Independe nt face/hair/teeth/ shaving (implements provided)) Grooming: Independent face/hair/teeth/ shaving (implements provided) 08/17/2023 Problem (Bladder: Continent) Bladder: Continent 08/17/2023 Problem (Toilet use: Indepen dent (on and off, dressing, wiping)) Toilet use: Independent (on and off, dressing, wiping) 08/17/2023 Problem (Feeding: Independent) Feeding: Independ ent 08/17/2023 Problem (Transfers (bed to c hair and back): Independent) Transfers (bed to chair and back): Independent 08/17/2023 Problem (Bathing: Independen t (or in shower)) Bathing: Independent (or in shower) 08/17/2023 Problem (Bowels: Continent) Bowels: Continent Problem (Stairs: Independent) Stairs: Independen t 08/17/2023 Problem (Mobility (on level surfaces): Independent (but may use any aid; for example, stick) >50 yards) Mobility (on level surfaces): Independent (but may use any aid; for example, stick) >50 yards 08/17/2023 Problem (Total score: 100) Total score: 100 07/31 Problem (Feeding: Independent) Feeding: Independ ent 03/07/2024 Problem (Bathing: Independen t (or in shower)) Bathing: Independent (or in shower) 03/07/2024 Problem (Grooming: Independe nt face/hair/teeth/ shaving (implements provided)) Grooming: Independent face/hair/teeth/ shaving (implements provided) 03/07/2024 Problem (Dressing: Independe nt (including buttons, zips, laces, etc.)) Dressing: Independent (including buttons, zips, laces, etc.) 03/07/2024 Problem (Bowels: Continent) Bowels: Continent Problem (Bladder: Continent) Bladder: Continent 03/07/2024 Problem (Toilet use: Indepen dent (on and off, dressing, wiping)) Toilet use: Independent (on and off, dressing, wiping) 03/07/2024 Problem (Transfers (bed to c hair and back): Independent) Transfers (bed to chair and back): Independent 03/07/2024 Problem (Mobility (on level surfaces): Independent (but may use any aid; for example, stick) >50 yards) Mobility (on level surfaces): Independent (but may use any aid; for example, stick) >50 yards 03/07/2024 Problem (Stairs: Independent) Stairs: Independen t 03/07/2024 Problem (Total score: 100) Total score: 100 07/2024 Mental Status Category Condition Date Cognitive function Normal 08/12/2022 Cognitive function Normal 07/04/2022 Cognitive function Normal 08/17/2023
--- OUTSIDE RECORDS SUMMARY | 2024-10-10 15:19 | XMS_ITS | Clinical Summary ---
Author Organization [facility] Care Team Providers Care Sole Rougher Name Role Phone No, Physician Primary Care Provider [phone] Allergies Active Allergy Reactions Criticality Noted Date [...] Comments Hypertension COPD (chronic obstructive pulmonary disease) Hypothyroid Glaucoma Family History Medical History Relation [...] on file Legal Sex Female 7:06 PM REFRIGERATION SUPERVISOR Gender Identity Not on file Sexual Orientation Not on file Obstetrics History Last Filed Vital Signs Vital Sign Reading Time Taken Comments Blood Pressure 126/73 02/03/2024 2:00 PM REFRIGERATION SUPERVISOR Pulse 79 02/03/2024 2:00 PM REFRIGERATION SUPERVISOR Temperature 36.8 C (98.3 F) 02/03/2024 11:22 AM REFRIGERATION SUPERVISOR Respiratory Rate 17 02/03/2024 11:2 2 AM REFRIGERATION SUPERVISOR Oxygen Saturation 94% 02/03/2024 2:00 PM REFRIGERATION SUPERVISOR Inhaled Oxygen Concentration - - Weight 58.5 kg (128 lb 14.4 oz) 01/07/2024 4:14 PM REFRIGERATION SUPERVISOR Height 157.5 cm (5' 2.01) 01/07/2024 4:14 PM CS T Body Mass Index 23.57 01/07/2024 4:14 PM REFRIGERATION SUPERVISOR Plan of Treatment Health Maintenance Due Date [...] Td or Tdap) 09/30/2024 09/30/2014 Influenza Vaccine (#1) 2024 , 12/12/2019, 11/15/2018, Additional history exists Hepatitis B Screening Completed 02/05/2017, 017 Pneumococcal vaccine 65+ Completed 08/13/2022, 08/2016 Insurance [employer]HC MEDICARE ADVANTAGE [facility] REF [employer]HC MEDICARE ADVANTAGE Care Teams Sole Rougher Relationship Specialty Start Date End Date No, Physician PCP - General 02/03/24
--- OUTSIDE RECORDS SUMMARY | 2024-10-10 15:19 | XMS_ITS | Clinical Summary ---
Author Organization [facility] Address [address] [place] [address] Care Team Providers Care Laborer/Grade Check Name Role Phone Nola Franklin TELEVISION SERVICE ENGINEER-BC Unavailable Jim White MD Unavailable [phone] Joan Rojas DO Primary Care Provider [phone] Allergies Active Allergy Reactions Criticality Noted Date Comments Clarithromycin Hives Medium 12/20/2018 Prochlorperazine Hives 06/19/2024 Iodine Hives 11/02/2018 Sulfa Antibiotics Hives 11/02/2018 Sulfa Antibiotics Anaphylaxis High 05/19/2020 Medications TRELEGY ELLIPTA 100-62.5-25 MCG/INH AEROSOL POWDER, BREATH ACTIVATED Inhale 1 puff into the lungs daily. 9 Active levothyroxine 75 MCG tablet Take 1 tablet (75 mcg total) by mouth daily. 9 Active paroxetine 40 MG tablet Take 1 tablet (40 mg total) by mouth daily. 9 Active ondansetron 4 MG disintegrating tablet Take 1 tablet (4 mg total) by mouth every 8 (eight) hours as needed for Nausea. 20 tablet 9 Active TRAVATAN Z 0.004 % opthalamic solution INSTILL 1 DROP INTO AFFECTED EYE(S) EVERY EVENING 9 Active lidocaine (LIDODERM) 5 % Place 1 patch onto the skin daily. Remove & Discard patch within 12 hours or as directed by MD. Applies to lower back, legs, or feet Active propranolol (INDERAL) 10 MG tablet Take 1 tablet (10 mg total) by mouth 3 (three) times daily as needed (tremors). Active oxyCODONE-acetamino phen (PERCOCET) 7.5-325 MG tablet Take 1 tablet by mouth 3 (three) times daily as needed for Pain. Active albuterol sulfate HFA 108 (90 Base) MCG/ACT inhaler Inhale 2 puffs into the lungs every 6 (six) hours as needed for Wheezing. Active gabapentin (NEURONTIN) 600 MG tablet Take 1 tablet (600 mg total) by mouth 3 (three) times daily. 5 Active atorvastatin (LIPITOR) 80 MG tablet Take 1 tablet (80 mg total) by mouth nightly at bedtime. 5 Active amLODIPine (NORVASC) 10 MG tablet Take 1 tablet (10 mg total) by mouth daily. 5 Active losartan (COZAAR) 100 MG tablet Take 1 tablet (100 mg total) by mouth daily. 5 Active pantoprazole EC (PROTONIX) 40 MG tablet Take 1 tablet (40 mg total) by mouth daily. 5 Active Active Problems Problem Noted Date Diagnosed Date Fall 06/19/2024 Acute left lumbar radiculopathy 07/11/2020 Orthostasis 12/21/2018 Syncope 12/20/2018 BLAKE (acute kidney injury) 12/20/2018 Atherosclerosis of aorta Hypertension AARON on CPAP Lymphoma ([facility]/HCC [facility]/HCC) Family History Medical History Relation Comments Cancer [...] drink = 0.6 oz pur e alcohol) [facility] Utilities Answer Date Recorded In the past 12 months has [facility] [employer], or [employer] threatened to shut off services in your [...] money to buy more. Never true 06/20/19 Within the past 12 months, t he [...] any time in the past 12 m [facility], were you homeless or living in a chcf (including now)? 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 Not [...] 11:16 PM CDT Height 157.5 cm (5' 2) 06/19/2024 11:1 6 PM CDT Body Mass Index 24.84 06/19/2024 11:16 PM CDT Plan of Treatment Health Maintenance Due Date Last Done Comments ASCVD LDL 1955 Colorectal Cancer Screening Colonoscopy (10 Years) 1955 Hepatitis C 1972 Zoster Vaccines (1 of 2) 1973 Mammogram Screening 1994 RSV Immunization or 60+ Years (1 - Risk 60-74 years 1-dose series) 2014 Pneumococcal Vaccine: 50+ Years (2 of 2 - PPSV23) 06/03/2016 04/08/2016 Annual Medicare Wellness Visit 05/25/2019 Dexa Scan (General) 05/25/2019 COVID-19 Vaccine (3 - Modern a risk series) 08/15/2020 07/18/2020, 07/03/2020 PHQ-2 (Physician [place]) 03/02/2024 DTaP, Tdap and Td Vaccines ( 2 - Td or Tdap) 09/30/2024 09/30/2014 Meningococcal B Vaccine Aged Out No l onger eligible based on patient's age to complete this topic Meningococcal Vaccine Aged Out No fish zuleyma eligible based on patient's age to complete this topic RSV Immunizations Under 20 Months Aged Out No longer eligible b ased on patient's age to complete this topic Insurance [facility] Advance Directives * DNR (Latest Code Status on File) Date Activated Date Inactivated Comments 01/15/2019 2:10 AM 01/16/2019 5:50 PM * DNR Date Activated Date Inactivated Comments 12/20/2018 3:14 PM 12/21/2018 7:59 PM Care Teams Laborer/Grade Check Relationship Specialty Start Date End Date Joan Rojas DO [address] [place] [address] PCP - General FAMILY PRACTICE 06/21/24 Nola Franklin, [facility]- NURSE PRACTITIONER 05/19/20 Jim White MD [facility] [address] [place] [address] Franklin Engineering Equipment Operator INTERVENTIONAL CARDIOLOGY 02/21/19
--- OUTSIDE RECORDS SUMMARY | 2024-10-10 15:19 | XMS_ITS | Encounter Summary ---
Author Organization [facility] Address [address] [place] [address] Phone Care Team Providers Care Patient Transport Officer Name Role Phone RigobertoNola EARTH BURNER Unavailable [phone] Doreen Mejía EARTH BURNER Primary Care Provider [phone] No, Physician Primary Care Provider [phone] Encounter Details Date Type Department Care Team (Late st Contact Info) Description 10/29/2020 Telephone [facility] Oncology [address] [facility] Advanced Medicine 7th [place] [address] [place] [address] Wendy Ng Social History Tobacco Use Types Packs/Day Years Used Date Smoking Tobacco: Every Day Cigarettes Alcohol Use Standard Drinks/Week Comments Not Currently 0 (1 standard drink = 0.6 oz pur e alcohol) Comments Unknown Sex and Gender Information Value Date Recorded Sex Assigned at Not on file Legal Sex Female 7:06 PM COLOR SHOP HELPER Gender Identity Not on file Sexual Orientation Not on file documented as of this encounter Plan of Treatment Not on file documented as of this encounter Visit Diagnoses Not on filedocumented in this encounter Additional Health Concerns Infection Onset Date Last Indicated Resolved Time COVID: Suspected 04/06/2023 04/06/2023 04/06/2023 2:38 PM COLOR SHOP HELPER documented as of this encounter Care Teams Patient Transport Officer Relationship Specialty Start Date End Date Doreen Mejía NP [address] [place] [address] PCP - General Internal Medicine 12/05/20 02/02/24 No, Physician PCP - General 02/03/24 Nola Franklin NP [address] [place] [address] Nurse Practitioner Nurse Practitioner 11/06/20 12/04/20 documented as of this encounter
--- NOTE | 2024-10-10 15:49 | ED.GENADULT ---
HPI - General Adult General Chief complaint: Nausea/Vomiting/Diarrhea Stated complaint: N/V x 7 days Time Seen by Provider: 10/10/24 15:32 History of Present Illness HPI narrative: 69-year-old female present to the emergency department for evaluation for nausea vomiting and generalized weakness has been ongoing since Thursday. Patient does have a prior history of ischemic colitis and irritable bowel syndrome. Related Data Home Medications ?Medication ?Instructions ?Recorded ?Confirmed ?Last Taken ?Type albuterol sulfate 2.5 mg/3 mL mg inhalation 05/10/24 06/30/24 Unknown History (0.083 %) solution for nebulization albuterol sulfate 90 mcg/actuation inhalation 05/10/24 06/30/24 Unknown History aerosol inhaler fluticasone fur. 100 mcg-umeclid 2 inh inhalation DAILY 05/10/24 06/30/24 Unknown History 62.5 mcg-vilant 25 mcg inhalat.powder (Trelegy Ellipta) levothyroxine 75 mcg tablet mcg PO 05/10/24 06/30/24 Unknown History lidocaine 5 % topical patch patch transdermal 05/10/24 06/30/24 Unknown History methylnaltrexone 150 mg tablet 450 mg PO DAILY 05/10/24 06/30/24 Unknown History (Relistor) oxycodone-acetaminophen 7.5 mg-325 tablet PO 05/10/24 06/30/24 Unknown History mg tablet pregabalin 75 mg capsule 75 mg PO BID 05/10/24 06/30/24 Unknown History gabapentin 600 mg tablet 600 mg PO 06/30/24 06/30/24 Unknown History ondansetron 4 mg disintegrating 4 mg PO PRN 06/30/24 06/30/24 Unknown History tablet Allergies Allergy/AdvReac Type Severity Reaction Status Date / Time methadone Allergy Intermediate Hives Verified 10/10/24 15:57 prochlorperazine (From Allergy Intermediate Other Verified 10/10/24 15:57 Compazine) sulfamethoxazole (From Allergy Mild Itching Verified 10/10/24 15:57 Bactrim) trimethoprim (From Bactrim) Allergy Mild Itching Verified 10/10/24 15:57 clarithromycin Allergy Unknown SWELLING Verified 10/10/24 15:57 contrast media Allergy Severe Itching Uncoded 07/11/24 13:41 Contrast Media Allergy Unknown ITCHING Uncoded 07/11/24 13:41 Review of Systems Review of Systems: All systems reviewed & are unremarkable except as noted in HPI and below PMFSH Past Medical History Medical History Colitis Cancer of lymphatic and hematopoietic tissue Family History Family History Mother Alcoholism Family history of cancer Hypertension Depression Anxiety Heart disease Daughter Asthma Family history of cancer Hypertension Anxiety Depression Social History Social History (System 07/11/24 @ 13:41 by Ariadna Gu) Smoking packs per day: 1 Smoking cigarettes per day: 20.0 Smoking status: Current every day smoker Alcohol intake: former Substance use: current Do You Feel Safe in your Home?: Yes Lack of Transportation: No Lack of Food: Never True Current Housing: I Have Housing Concerned About Future Housing: No Difficulty Paying Gas/Electric Bills: No Difficulty Paying for Meds: No Currently Unemployed: Decline to Answer Education: Trade/Vocational Certificate Difficulty w/ Childcare or Family Care: No Exam Narrative: APPEARANCE: Well appearing, no pain, no distress, well-nourished. HEAD: normocephalic, atraumatic. EYES: PERRLA/EOMI, conjunctivae clear. NOSE: Normal no drainage EARS:TMS clear with good light reflex. THROAT: Pharynx clear, no exudate. NECK: Supple. No adenopathy, no masses. RESPIRATORY: Airway patent, respirations nonlabored. Clear to auscultation bilaterally, no rales, rhonchi, wheezing. CARDIOVASCULAR: Regular rate and rhythm without murmurs rubs or gallops. ABDOMINAL: Soft, nontender, nondistended, normal bowel sounds MUSCULOSKELETAL: Moves all extremities. Strength/ROM intact, No edema, No calf tenderness. NEURO: Alert. Cranial nerves II through XII intact. Good gait. Good coordination SKIN: Warm, dry. Normal Color Course Vital Signs Vital signs: Vital Signs Temperature 97.9 F 10/10/24 15:09 Pulse Rate 111 H 10/10/24 15:09 Respiratory Rate 20 10/10/24 15:09 Blood Pressure 91/52 L 10/10/24 15:09 Pulse Oximetry 99 10/10/24 15:09 Oxygen Delivery Room Air 10/10/24 15:09 Temperature 97.9 F 10/10/24 15:09 Pulse Rate 101 H 10/10/24 21:15 Respiratory Rate 22 H 10/10/24 21:15 Blood Pressure 122/78 10/10/24 21:15 Pulse Oximetry 99 10/10/24 21:15 Oxygen Delivery Room Air 10/10/24 15:09 Medical Decision Making MDM Narrative Medical decision making narrative: 69-year-old female presents to the emergency department for evaluation for abdominal pain generalized weakness. Patient is currently afebrile with no leukocytosis hemoglobin of 12.8. Patient did have a potassium of 3.0 this was replaced with 20 mEq IV and 40 mEq p.o. potassium. Patient does have evidence of urinary tract infection for which she was treated with 1 g of IV Rocephin. Patient's initial creatinine was 2.17 she was treated with 2 L of lactated Ringer's. Patient's repeat creatinine is 1.9. Patient is tolerating p.o.. Patient states she does feel improved is requesting be discharged home. Differential Diagnosis Differential Diagnosis: Colitis, diverticulitis, ischemic colitis, urinary tract infection, pyelonephritis, intractable nausea vomiting, cannabinoid hyperemesis since Vital Signs Vital Signs: Vital Signs Temperature 97.9 F 10/10/24 15:09 Pulse Rate 111 H 10/10/24 15:09 Respiratory Rate 20 10/10/24 15:09 Blood Pressure 91/52 L 10/10/24 15:09 Pulse Oximetry 99 10/10/24 15:09 Oxygen Delivery Room Air 10/10/24 15:09 Temperature 97.9 F 10/10/24 15:09 Pulse Rate 101 H 10/10/24 21:15 Respiratory Rate 22 H 10/10/24 21:15 Blood Pressure 122/78 10/10/24 21:15 Pulse Oximetry 99 10/10/24 21:15 Oxygen Delivery Room Air 10/10/24 15:09 Lab Data Lab results reviewed: Yes I reviewed the patient's lab results. 10/10/24 16:07 10/10/24 20:32 Labs: Lab Results 10/10/24 10/10/24 10/10/24 Range/Units 16:07 16:30 20:32 WBC 7.8 (4.5-10.0) K/mm3 RBC 4.38 (4.2-5.4) M/mm3 Hgb 12.8 (12.0-15.0) g/dL Hct 38.4 (37.0-47.0) % MCV 87.7 (80-100) fl MCH 29.2 (26-34) pg MCHC 33.3 (32-36) g/dl RDW 13.5 (11.5-14.5) % Plt Count 336 (150-375) k/mm3 MPV 9.3 (7.4-10.4) fl Immature Gran % (Auto) Not Reportable Neut % (Auto) Not Reportable Lymph % (Auto) Not Reportable [place] % (Auto) Not Reportable Eos % (Auto) Not Reportable Baso % (Auto) Not Reportable Lymph # (Auto) Not Reportable [place] # (Auto) Not Reportable Eos # (Auto) Not Reportable Baso # (Auto) Not Reportable Abs Immat Gran (auto) Not Reportable Absolute Neuts (auto) Not Reportable Absolute Nucleated RBC Not Reportable Total Counted 100 Neutrophils % (Manual) 61 (46-73) % Band Neutrophils % 7 H (0-6) % Lymphocytes % (Manual) 16.0 L (18-44) % Monocytes % (Manual) 16 H (3-9) % Nucleated RBC % Not Reportable Abs Neuts (Manual) 5.30 (1.3-6.7) K/mm3 Abs Lymphs (Manual) 1.24 (1.1-4.5) K/mm3 Abs Monocytes (Manual) 1.24 H (0.1-0.90) K/mm3 Platelet Estimate Adequate (Adequate) Schistocytes None seen Sodium 129 L 133 L (137-145) mmol/L Potassium 3.0 L 3.0 L (3.4-5.0) mmol/L Chloride 98 102 (98-107) mmol/L Carbon Dioxide 19 L 24 (22-30) mmol/L Anion Gap 12 7 (4-12) mmol/L BUN 25 H 21 H (7-17) mg/dL Creatinine 2.17 H 1.90 H (0.7-1.0) mg/dL Estim Creat Clear Calc Not Reportable Not Reportable Estimated GFR 22 L 26 L (59 - ) Glucose 106 99 (65-110) mg/dL Calcium 9.0 9.0 (8.4-10.2) mg/dL Total Bilirubin 0.4 (0.2-1.3) mg/dL AST 28 (14-36) U/L ALT 30 (6-35) U/L Alkaline Phosphatase 124 (38-126) U/L Total Protein 6.9 (6.3-8.2) g/dL Albumin 3.6 (3.5-5.1) g/dL Lipase 23 (23-300) U/L Urine Color Yellow (Yellow) Urine Appearance Cloudy H (Clear) Urine pH 6.0 (5.0-9.0) Ur Specific [place] 1.004 (1.001-1.035) Urine Protein 1+ H (Negative) mg/dL Urine Glucose (UA) Negative (Negative) mg/dL Urine Ketones Negative (Negative) mg/dL Ur Blood (Man) Trace (Negative) Urine Nitrate Negative (Negative) Urine Bilirubin Negative (Negative) Urine Urobilinogen 0.2 (<2.0) mg/dL Leukocyte Esterase Rfl 3+ H (Negative) SANTH[place]H/UL Urine RBC 0-2 (0-2) /hpf Urine WBC >100 H (0-3) /hpf Ur Squamous Epith Cells Few (Few) /hpf Urine Bacteria 4+ H /hpf Urine Casts 0-2 Imaging Data Radiologist's impression: Impressions Abdomen/Pelvis CT 10/10/24 16:41 IMPRESSION: Significant distention of the common bile duct, possibly normal physiologic response postcholecystectomy although the duct measures close to 2 cm in caliber. Increased attenuation within the lumen of the proximal and distal small bowel, for which either medication ingestion versus acute bleeding (less likely) is suspected. Given the quantity of the increased attenuation, if the patient would be acutely ill, and likely demonstrate at least heme positive liquid stool. Clinical correlation is needed. The colon and distal small bowel are distended with liquid stool, consistent with patient's history of nausea, vomiting and diarrhea. Discharge Plan Discharge Clinical Impression: Acute kidney injury, Acute hypokalemia, Urinary tract infection Patient Disposition: Home Condition: Stable Instructions: Antibiotic Form, Urinary Tract Infection in Women (DC), Clear Liquid Diet (ED), Acute Nausea and Vomiting (ED) Additional Instructions: Zofran as needed for nausea control. Antibiotic as directed until completed. Have close follow-up with your primary care physician for repeat kidney function testing and a repeat potassium level. If you have any worsening symptoms or if you are not able to eat or drink then please call or return to the emergency department. Patient Language: Greek Prescriptions: New cephalexin 500 mg capsule 500 mg PO Q8H 7 Days Qty: 21 0RF ondansetron 4 mg tablet,disintegrating 4 mg PO Q8H PRN (Reason: nausea and vomiting) Qty: 14 0RF metoclopramide HCl [Reglan] 10 mg tablet 10 mg PO Q6H PRN (Reason: nausea and vomiting) Qty: 14 0RF No Action oxycodone-acetaminophen 7.5-325 mg tablet PO albuterol sulfate 2.5 mg /3 mL (0.083 %) solution for nebulization inhalation levothyroxine 75 mcg tablet PO lidocaine 5 % adhesive patch,medicated transdermal albuterol sulfate 90 mcg/actuation HFA aerosol inhaler inhalation Relistor 150 mg tablet 450 mg PO DAILY pregabalin 75 mg capsule 75 mg PO BID Trelegy Ellipta 100-62.5-25 mcg blister with device 2 inh inhalation DAILY gabapentin 600 mg tablet 600 mg PO ondansetron 4 mg tablet,disintegrating 4 mg PO PRN pantoprazole 40 mg tablet,delayed release (DR/EC) 40 mg PO DAILY Qty: 90 1RF propranolol 10 mg tablet 10 mg PO TID PRN (Reason: tremors) Qty: 270 1RF paroxetine HCl 40 mg tablet 40 mg PO DAILY Qty: 90 1RF atorvastatin [Lipitor] 80 mg tablet 80 mg PO QHS Qty: 90 1RF amlodipine 10 mg tablet 10 mg PO DAILY Qty: 90 1RF losartan 100 mg tablet 100 mg PO DAILY Qty: 90 1RF Follow-up/Referrals: Joan Rojas DO [Primary Care Provider] -
--- NOTE | 2024-10-10 16:13 | PC.NURSE ---
urine not collected at this time, pt taken to CT.
[2024-10-10 16:17] LABS: Hematocrit 38.4 % (37.0-47.0); Hemoglobin 12.8 g/dL (12.0-15.0); Mean Corpuscular HGB Conc 33.3 g/dl (32-36); Mean Corpuscular Hemoglobin 29.2 pg (26-34); Mean Corpuscular Volume 87.7 fl (80-100); Platelet Count Result 336 k/mm3 (150-375); Red Blood Count 4.38 M/mm3 (4.2-5.4); White Blood Count 7.8 K/mm3 (4.5-10.0)
[2024-10-10] MEDS: LACTATED RINGERS 1,000 ML 999 ML IV CONT ×2 (16:32→19:04)
--- OUTSIDE RECORDS SUMMARY | 2024-10-10 16:35 | XMS_ITS | Clinical Summary ---
Author Organization [facility] HealthCare Care Team Providers Care Fish Net Stringer Name Role Phone No, Physician Primary Care Provider [phone] Allergies Active Allergy Reactions Criticality Noted Date [...] on file Legal Sex Female 7:06 PM GWOT IA/ILO INTELLIGENCE SUPPORT Gender Identity Not on file Sexual Orientation Not on file Obstetrics History Last Filed Vital Signs Vital Sign Reading Time Taken Comments Blood Pressure 126/73 02/03/2024 2:00 PM GWOT IA/[employer] INTELLIGENCE SUPPORT Pulse 79 02/03/2024 2:00 PM GWOT IA/ILO INTELLIGENCE SUPPORT Temperature 36.8 C (98.3 F) 02/03/2024 11:22 AM GWOT IA/ILO INTELLIGENCE SUPPORT Respiratory Rate 17 02/03/2024 11:2 2 AM GWOT IA/ILO INTELLIGENCE SUPPORT Oxygen Saturation 94% 02/03/2024 2:00 PM GWOT IA/ILO INTELLIGENCE SUPPORT Inhaled Oxygen Concentration - - Weight 58.5 kg (128 lb 14.4 oz) 01/07/2024 4:14 PM GWOT IA/[employer] INTELLIGENCE SUPPORT Height 157.5 cm (5' 2.01) 01/07/2024 4:14 PM CS T Body Mass Index 23.57 01/07/2024 4:14 PM GWOT IA/ILO INTELLIGENCE SUPPORT Plan of Treatment Health Maintenance Due Date [...] Completed 08/13/2022, 08/2016 Insurance UHC MEDICARE ADVANTAGE [facility] MEDICARE Address: [place] [address] [facility] MEDICARE Address: [place] [address] UHC MEDICARE ADVANTAGE [facility] MEDICARE Address: [facility] [address] [place] [address] Care Teams Fish Net Stringer Relationship Specialty Start Date End Date No, Physician PCP - General 02/03/24
--- OUTSIDE RECORDS SUMMARY | 2024-10-10 16:35 | XMS_ITS | Clinical Summary ---
Author Organization [facility] Address [address] [place] [address] Care Team Providers Care Telecommunications Facility Examiner Name Role Phone Nola Franklin GINNING OPERATOR-BC Unavailable [phone] Jim White MD Unavailable [phone] Joan Rojas DO Primary Care Provider [phone] Allergies Active Allergy Reactions Criticality Noted Date [...] of aorta Hypertension AARON on CPAP Lymphoma ([facility]) Family History Medical History Relation Comments Cancer [...] drink = 0.6 oz pur e alcohol) [facility] Utilities Answer Date Recorded In the past 12 months has [facility] [employer], [employer], or [employer] threatened to shut off services in your [...] any time in the past 12 m [facility], were you homeless or living in a residential (including now)? 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 Not [...] risk series) 08/15/2020 07/18/2020, 07/03/2020 PHQ-2 (Physician [place]) 03/02/2024 DTaP, Tdap and Td Vaccines ( [...] patient's age to complete this topic Insurance [facility] Advance Directives * DNR (Latest Code Status on File) Date Activated Date Inactivated Comments 01/15/2019 2:10 AM 01/16/2019 5:50 PM * DNR Date Activated Date Inactivated Comments 12/20/2018 3:14 PM 12/21/2018 7:59 PM Care Teams Telecommunications Facility Examiner Relationship Specialty Start Date End Date Joan Rojas DO [address] [place] [address] PCP - General FAMILY PRACTICE 06/21/24 Nola Franklin, [facility]- NURSE PRACTITIONER 05/19/20 Jim White MD [facility] [address] [place] [address] Franklin Matcher INTERVENTIONAL CARDIOLOGY 02/21/19
--- OUTSIDE RECORDS SUMMARY | 2024-10-10 16:35 | XMS_ITS | Encounter Summary ---
Author Organization [facility] Address [address] [place] [address] Phone Care Team Providers Care Chief Of Safety And Protection Name Role Phone RigobertoNola DAMPENER Unavailable [phone] Doreen Mejía DAMPENER Primary Care Provider [phone] No, Physician Primary Care Provider [phone] Encounter Details Date Type Department Care Team (Late st Contact Info) Description 10/29/2020 Telephone [facility] Oncology [address] [facility] Advanced Medicine 7th [place] [address] [place] [address] Wendy Ng Social History Tobacco Use Types Packs/Day Years Used Date Smoking Tobacco: Every Day Cigarettes Alcohol Use Standard Drinks/Week Comments Not Currently 0 (1 standard drink = 0.6 oz pur e alcohol) Comments Unknown Sex and Gender Information Value Date Recorded Sex Assigned at Not on file Legal Sex Female 7:06 PM ORACLE ETL DEVELOPER Gender Identity Not on file Sexual Orientation Not on file documented as of this encounter Plan of Treatment Not on file documented as of this encounter Visit Diagnoses Not on filedocumented in this encounter Additional Health Concerns Infection Onset Date Last Indicated Resolved Time COVID: Suspected 04/06/2023 04/06/2023 04/06/2023 2:38 PM ORACLE ETL DEVELOPER documented as of this encounter Care Teams Chief Of Safety And Protection Relationship Specialty Start Date End Date Doreen Mejía NP [address] [place] [address] PCP - General Internal Medicine 12/05/20 02/02/24 No, Physician PCP - General 02/03/24 Nola Franklin NP [address] [place] [address] Nurse Practitioner Nurse Practitioner 11/06/20 12/04/20 documented as of this encounter
--- OUTSIDE RECORDS SUMMARY | 2024-10-10 16:35 | XMS_ITS | Encounter Summary ---
Author Organization [facility] Address [address] [place] [address] Care Team Providers Care Job Service Specialist Name Role Phone Nola Franklin FARMWORKER LIVESTOCK-BC Primary Care Provider [phone] Rigoberto Crystal L FARMWORKER LIVESTOCK-BC Primary Care Provider [phone] Rigoberto Crystal L FARMWORKER LIVESTOCK-BC Unavailable [phone] Jim White MD Unavailable [phone] Joan Rojas DO Primary Care Provider [phone] Encounter Details Date Type Department Care Team (Late st Contact Info) Description 01/17/2019 Hospital Follow-up Call [facility] Clinical Decision Unit [place], [place] [id number] Lan Arreola, [place] Social History Tobacco [...] Industry 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 Job End Date 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 Answer Date of Assessment Author Status No 01/15/2019 7:00 AM SUPERVISOR TICKET SALES Activ e * Do you have serious [...] documented as of this encounter Care Teams Job Service Specialist Relationship Specialty Start Date End Date Nola Franklin FNP-BC PCP - General NURSE PRACTITIONER 11/02/18 05/18/20 Nola Franklin FNP-BC PCP - General NURSE PRACTITIONER 05/19/20 06/20/24 Joan Rojas DO [address] [place] [address] [place] [address] PCP - General FAMILY PRACTICE 06/21/24 Nola Franklin, [facility]- NURSE PRACTITIONER 05/19/20 Jim White MD [place] [id number] [place] [address] [place] Chief [employer] Guide INTERVENTIONAL CARDIOLOGY 02/21/19 documented as of this encounter
[2024-10-10 16:41] LABS: Add Urine Microscopic? YES; Appearance Urine Cloudy (Clear); Glucose Urine UA Negative (Negative); Leukocyte Esterase Ur 3+ LEU/UL (Negative); Nitrate Urine Negative (Negative); Non Pathogenic Casts 0-2; Specific Grav Ur 1.004 (1.001-1.035)
[2024-10-10 16:42] LABS: Band Neutrophils Percent 7 % (0-6); Lymphocytes Absolute Manual 1.24 K/mm3 (1.1-4.5); Lymphocytes Percent Manual 16.0 % (18-44); Monocytes Absolute Manual 1.24 K/mm3 (0.1-0.90); Monocytes Percent Manual 16 % (3-9); Neutrophils Absolute Manual 5.30 K/mm3 (1.3-6.7); Neutrophils Percent Manual 61 % (46-73); Schistocytes None Seen; Total Cells Counted 100
[2024-10-10 16:45] LABS: Alanine Aminotransferase 30 U/L (6-35); Albumin Level 3.6 g/dL (3.5-5.1); Alkaline Phosphatase 124 U/L (38-126); Anion Gap 12 mmol/L (4-12); Aspartate Amino Transferase 28 U/L (14-36); Bilirubin,Total 0.4 mg/dL (0.2-1.3); Blood Urea Nitrogen 25 mg/dL (7-17); Calcium 9.0 mg/dL (8.4-10.2); Carbon Dioxide 19 mmol/L (22-30); Chloride 98 mmol/L (98-107); Estimated Glomerular Filt Rate 22; Glucose 106 mg/dL (65-110); Lipase 23 U/L (23-300); Potassium 3.0 mmol/L (3.4-5.0); Sodium 129 mmol/L (137-145); Total Protein 6.9 g/dL (6.3-8.2)
[2024-10-10] MEDS: POTASSIUM CHLORIDE 20 MEQ PACKET (FOR LIQUID) 40 MEQ PO (17:39)
[2024-10-10] MEDS: KCL 20 MEQ/SW 100 ML 100 ML 50 MEQ IVPB (17:39)
[2024-10-10] MEDS: cefTRIAXone 1 GM in SODIUM CHLORIDE 0.9% IV 50 ML 100 ML IVPB (19:04)
--- NOTE | 2024-10-10 19:23 | PC.NURSE ---
this rn received report from Rns cole and chace. vital signs and comfort measures updated. resumed care.
--- NOTE | 2024-10-10 19:24 | PC.NURSE ---
previous RNs paused pt potassium drip to give pt her rocephin. this rn will resume potassium drip once rocephin has been infused.
--- NOTE | 2024-10-10 20:16 | PC.NURSE ---
MD verbally states to wait for fluids to be infused and bag to be empty before redrawing pt BMP that is due at 2019.
[2024-10-10 20:58] LABS: Anion Gap 7 mmol/L (4-12); Blood Urea Nitrogen 21 mg/dL (7-17); Calcium 9.0 mg/dL (8.4-10.2); Carbon Dioxide 24 mmol/L (22-30); Chloride 102 mmol/L (98-107); Estimated Glomerular Filt Rate 26; Glucose 99 mg/dL (65-110); Potassium 3.0 mmol/L (3.4-5.0); Sodium 133 mmol/L (137-145)
[2024-10-10] MEDS: POTASSIUM CHLORIDE 20 MEQ ER TABLET 40 MEQ PO (21:16)
== END 2024-10-10 21:24 | disposition home or self-care (01) ==
PROVIDERS: Registered Nurse; Emergency Provider Emergency Medicine; PCP Family Medicine
DX: N17.9 Acute kidney failure, unspecified (principal); N39.0 Urinary tract infection, site not specified; E87.6 Hypokalemia; K58.9 Irritable bowel syndrome, unspecified; F17.210 Nicotine dependence, cigarettes, uncomplicated; Z85.72 Personal history of non-Hodgkin lymphomas
CPT/HCPCS: 36415; 74176; 80048; 80053; 81001; 83690; 85025; 87086; 96361; 96365; 96366; 96367; 99284; A4565; A9270; J0696; J3480; J7120

== ENCOUNTER 2024-10-14 14:10 | Outpatient (CLI) | payer MEDICARE, SELFPAY ==
--- OUTSIDE RECORDS SUMMARY | 2024-10-14 14:14 | XMS_ITS | Clinical Summary ---
Author Organization [facility] HealthCare Care Team Providers Care Posting Machine Operator Name Role Phone No, Physician Primary Care [...] on file Legal Sex Female 7:06 PM SOFTWARE DESIGN ENGINEER Gender Identity Not on file Sexual Orientation Not on file Obstetrics History Last Filed Vital Signs Vital Sign Reading Time Taken Comments Blood Pressure 126/73 02/03/2024 2:00 PM SOFTWARE DESIGN ENGINEER Pulse 79 02/03/2024 2:00 PM SOFTWARE DESIGN ENGINEER Temperature 36.8 C (98.3 F) 02/03/2024 11:22 AM SOFTWARE DESIGN ENGINEER Respiratory Rate 17 02/03/2024 11:2 2 AM SOFTWARE DESIGN ENGINEER Oxygen Saturation 94% 02/03/2024 2:00 PM SOFTWARE DESIGN ENGINEER Inhaled Oxygen Concentration - - Weight 58.5 kg (128 lb 14.4 oz) 01/07/2024 4:14 PM SOFTWARE DESIGN ENGINEER Height 157.5 cm (5' 2.01) 01/07/2024 4:14 PM CS T Body Mass Index 23.57 01/07/2024 4:14 PM SOFTWARE DESIGN ENGINEER Plan of Treatment Health Maintenance Due Date [...] Completed 08/13/2022, 08/2016 Insurance UHC MEDICARE ADVANTAGE [facility] H[facility] [place] [address] Care Teams Posting Machine Operator Relationship Specialty Start Date End Date No, Physician PCP - General 02/03/24
--- OUTSIDE RECORDS SUMMARY | 2024-10-14 14:14 | XMS_ITS | Encounter Summary ---
Author Organization [facility] Address [address] [place] [address] Care Team Providers Care Coin Machine Collector Name Role Phone Nola Franklin NEWS OPERATIONS MANAGER-BC Primary Care Provider [phone] Rigoberto Crystal L NEWS OPERATIONS MANAGER-BC Primary Care Provider [phone] Rigoberto Crystal L NEWS OPERATIONS MANAGER-BC Unavailable [phone] Jim White MD Unavailable [phone] Joan Rojas DO Primary Care Provider [phone] Encounter Details Date Type Department Care Team (Late st Contact Info) Description 01/17/2019 Hospital Follow-up Call [facility] Clinical Decision Unit [place], [place] [id number] Lan Arreola, [place] Social History Tobacco [...] Industry 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 Job 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 Answer Date of Assessment Author Status No 01/15/2019 7:00 AM CARPENTER GENERAL Activ e * Do you have serious [...] documented as of this encounter Care Teams Coin Machine Collector Relationship Specialty Start Date End Date Nola Franklin FNP-BC PCP - General NURSE PRACTITIONER 11/02/18 05/18/20 Nola Franklin FNP-BC PCP - General NURSE PRACTITIONER 05/19/20 06/20/24 Joan Rojas DO [address] [place] [address] [place] [address] PCP - General FAMILY PRACTICE 06/21/24 Nola Franklin, [facility]- NURSE PRACTITIONER 05/19/20 Jim White MD [place] [place] [address] [place] Fire Apparatus Sprinkler Inspector INTERVENTIONAL CARDIOLOGY 02/21/19 documented as of this encounter
--- OUTSIDE RECORDS SUMMARY | 2024-10-14 14:14 | XMS_ITS | Encounter Summary ---
Author Organization [facility] Address [address] [place] [address] Phone Care Team Providers Care Log Hooker Name Role Phone RigobertoNola MOLD BLOWER Unavailable [phone] Doreen Mejía MOLD BLOWER Primary Care Provider No, Physician Primary Care Provider [phone] Encounter Details Date Type Department Care Team (Late st Contact Info) Description 10/29/2020 Telephone [facility] Oncology [address] [facility] Advanced Medicine 7th [place] [address] [place] [address] Wendy Ng Social History Tobacco Use Types Packs/Day Years Used Date Smoking Tobacco: Every Day Cigarettes Alcohol Use Standard Drinks/Week Comments Not Currently 0 (1 standard drink = 0.6 oz pur e alcohol) Comments Unknown Sex and Gender Information Value Date Recorded Sex Assigned at Not on file Legal Sex Female 7:06 PM RADIO CONTROL CRANE OPERATOR Gender Identity Not on file Sexual Orientation Not on file documented as of this encounter Plan of Treatment Not on file documented as of this encounter Visit Diagnoses Not on filedocumented in this encounter Additional Health Concerns Infection Onset Date Last Indicated Resolved Time COVID: Suspected 04/06/2023 04/06/2023 04/06/2023 2:38 PM RADIO CONTROL CRANE OPERATOR documented as of this encounter Care Teams Log Hooker Relationship Specialty Start Date End Date Doreen Mejía NP [address] [place] [address] PCP - General Internal Medicine 12/05/20 02/02/24 No, Physician PCP - General 02/03/24 Nola Franklin NP [address] [place] [address] Nurse Practitioner Nurse Practitioner 11/06/20 12/04/20 documented as of this encounter
--- OUTSIDE RECORDS SUMMARY | 2024-10-14 14:14 | XMS_ITS | Clinical Summary ---
Author Organization [facility] Address [address] [place] [address] Care Team Providers Care Bindery Machine Feeder Offbearer Name Role Phone Nola Franklin LIFE SCIENCES INSTRUCTOR-BC Unavailable Jim White MD Unavailable [phone] Joan Rojas DO Primary Care Provider [phone] Allergies Active Allergy Reactions Criticality Noted Date [...] aorta Hypertension AARON on CPAP Lymphoma ([facility]) Family History Medical History Relation Comments Cancer [...] drink = 0.6 oz pur e alcohol) [facility] Utilities Answer Date Recorded In the past 12 months has [facility] [employer], [employer], or [employer] threatened to shut off services in your [...] any time in the past 12 [facility], were you homeless or living in a fci (including now)? 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 [...] risk series) 08/15/2020 07/18/2020, 07/03/2020 PHQ-2 (Physician [place]) 03/02/2024 DTaP, Tdap and Td Vaccines ( [...] to complete this topic Insurance [facility] Advance Directives * DNR (Latest Code Status on File) Date Activated Date Inactivated Comments 01/15/2019 2:10 AM 01/16/2019 5:50 PM * DNR Date Activated Date Inactivated Comments 12/20/2018 3:14 PM 12/21/2018 7:59 PM Care Teams Bindery Machine Feeder Offbearer Relationship Specialty Start Date End Date Joan Rojas DO [address] [place] [address] PCP - General FAMILY PRACTICE 06/21/24 Nola Franklin, [facility]- NURSE PRACTITIONER 05/19/20 Jim White MD [facility] [address] [place] [address] Franklin Routing Clerk INTERVENTIONAL CARDIOLOGY 02/21/19
[2024-10-14 14:56] LABS: Anion Gap 11 mmol/L (4-12); Blood Urea Nitrogen 13 mg/dL (7-17); Calcium 8.8 mg/dL (8.4-10.2); Carbon Dioxide 20 mmol/L (22-30); Chloride 102 mmol/L (98-107); Estimated Glomerular Filt Rate 45; Glucose 106 mg/dL (65-110); Potassium 3.1 mmol/L (3.4-5.0); Sodium 133 mmol/L (137-145)
== END 2024-10-14 14:11 | disposition home or self-care (01) ==
LOC: ANHLAB 14:11
PROVIDERS: PCP Family Medicine; Visit Provider Family Medicine
DX: Z79.899 Other long term (current) drug therapy (principal)
CPT/HCPCS: 36415; 80048

== ENCOUNTER 2024-10-19 10:21 | Outpatient (CLI) | payer MEDICARE, SELFPAY ==
--- OUTSIDE RECORDS SUMMARY | 2024-10-19 10:51 | XMS_ITS | Clinical Summary ---
Author Organization [facility] HealthCare Care Team Providers Care Chefs Name Role Phone No, Physician Primary Care Provider [phone] Allergies Active Allergy Reactions Criticality Noted Date [...] on file Legal Sex Female 7:06 PM RESEARCH & ANALYTICS MANAGER Gender Identity Not on file Sexual Orientation Not on file Obstetrics History Last Filed Vital Signs Vital Sign Reading Time Taken Comments Blood Pressure 126/73 02/03/2024 2:00 PM RESEARCH & ANALYTICS MANAGER Pulse 79 02/03/2024 2:00 PM RESEARCH & ANALYTICS MANAGER Temperature 36.8 C (98.3 F) 02/03/2024 11:22 AM RESEARCH & ANALYTICS MANAGER Respiratory Rate 17 02/03/2024 11:2 2 AM RESEARCH & ANALYTICS MANAGER Oxygen Saturation 94% 02/03/2024 2:00 PM RESEARCH & ANALYTICS MANAGER Inhaled Oxygen Concentration - - Weight 58.5 kg (128 lb 14.4 oz) 01/07/2024 4:14 PM RESEARCH & ANALYTICS MANAGER Height 157.5 cm (5' 2.01) 01/07/2024 4:14 PM CS T Body Mass Index 23.57 01/07/2024 4:14 PM RESEARCH & ANALYTICS MANAGER Plan of Treatment Health Maintenance Due Date [...] ADVANTAGE [facility] MEDICARE Address: [place] [address] [facility] HMO REF [facility] MEDICARE Address: [place] [address] UHC MEDICARE ADVANTAGE [facility] MEDICARE Address: [facility] [address] [place] [address] Care Teams Chefs Relationship Specialty Start Date End Date No, Physician PCP - General 02/03/24
--- OUTSIDE RECORDS SUMMARY | 2024-10-19 10:51 | XMS_ITS | Encounter Summary ---
Author Organization [facility] Address [address] [place] [address] Care Team Providers Care Digital Cartographer Name Role Phone Nola Franklin CHIEF CHEMIST-BC Primary Care Provider [phone] Rigoberto Crystal L CHIEF CHEMIST-BC Primary Care Provider [phone] Rigoberto Crystal L CHIEF CHEMIST-BC Unavailable [phone] Jim White MD Unavailable Joan Rojas DO Primary Care Provider [phone] Encounter Details Date Type Department Care Team (Late st Contact Info) Description 01/17/2019 Hospital Follow-up Call [facility] Clinical Decision Unit [place], [place] [id number] Lan Arreola, [place] Social History Tobacco [...] Industry 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 Job End Date 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 Answer Date of Assessment Author Status No 01/15/2019 7:00 AM CAFETERIA OR LUNCHROOM CHECKER Activ e * Do you have serious [...] documented as of this encounter Care Teams Digital Cartographer Relationship Specialty Start Date End Date Nola Franklin FNP-BC PCP - General NURSE PRACTITIONER 11/02/18 05/18/20 Nola Franklin FNP-BC PCP - General NURSE PRACTITIONER 05/19/20 06/20/24 Joan Rojas DO [address] [place] [address] [place] [address] PCP - General FAMILY PRACTICE 06/21/24 Nola Franklin, [facility]- NURSE PRACTITIONER 05/19/20 Jim White MD [address] [place] [address] [employer] Consultant INTERVENTIONAL CARDIOLOGY 02/21/19 documented as of this encounter
--- OUTSIDE RECORDS SUMMARY | 2024-10-19 10:51 | XMS_ITS | Encounter Summary ---
Author Organization [facility] Address [address] [place] [address] Phone Care Team Providers Care Slot Service Specialist Name Role Phone RigobertoNola REGULATORY ATTORNEY Unavailable [phone] Doreen Mejía REGULATORY ATTORNEY Primary Care Provider [phone] No, Physician Primary Care Provider [phone] Encounter Details Date Type Department Care Team (Late st Contact Info) Description 10/29/2020 Telephone [facility] Oncology [address] [facility] Advanced Medicine 7th [place] [address] [place] [address] Wendy Ng Social History Tobacco Use Types Packs/Day Years Used Date Smoking Tobacco: Every Day Cigarettes Alcohol Use Standard Drinks/Week Comments Not Currently 0 (1 standard drink = 0.6 oz pur e alcohol) Comments Unknown Sex and Gender Information Value Date Recorded Sex Assigned at Not on file Legal Sex Female 7:06 PM MANAGER TRAINEE Gender Identity Not on file Sexual Orientation Not on file documented as of this encounter Plan of Treatment Not on file documented as of this encounter Visit Diagnoses Not on filedocumented in this encounter Additional Health Concerns Infection Onset Date Last Indicated Resolved Time COVID: Suspected 04/06/2023 04/06/2023 04/06/2023 2:38 PM MANAGER TRAINEE documented as of this encounter Care Teams Slot Service Specialist Relationship Specialty Start Date End Date Doreen Mejía NP [address] [place] [address] PCP - General Internal Medicine 12/05/20 02/02/24 No, Physician PCP - General 02/03/24 Nola Franklin NP [address] [place] [address] Nurse Practitioner Nurse Practitioner 11/06/20 12/04/20 documented as of this encounter
--- OUTSIDE RECORDS SUMMARY | 2024-10-19 10:51 | XMS_ITS | Continuity of Care Document ---
Author Organization [employer] [facility] Address [address] [place] [address] Insurance Providers Payer Plan Claims Address Claims Phone Policy Number Group Number Relation Employer Guarantor Name Guarantor Guarantor Address Guarantor Phone [employer] [address] [address], [place] [id number] tel:[phone] Self Geena Kaminskie 1955 [address], [place] [address] [employer] [address] [address], [place] [id number] tel:[phone] Self Geena Reyez 1955 [address] , [place] [address] [employer] [address] [address], [place] [id number] tel:[phone] Self Geena Reyez 1955 [address], [place] [address] Problems Unknown Problems Results No [...]
--- OUTSIDE RECORDS SUMMARY | 2024-10-19 10:51 | XMS_ITS | Clinical Summary ---
Author Organization [facility] Address [address] [place] [address] Care Team Providers Care Chest Pain Coordinator Name Role Phone Nola Franklin QUALITATIVE FIELD PROJECT MANAGER-BC Unavailable [phone] Jim White MD Unavailable [phone] Joan Rojas DO Primary Care Provider [phone] Allergies Active Allergy Reactions Criticality Noted Date [...] of aorta Hypertension AARON on CPAP Lymphoma ([facility]/HCC [facility]/HCC) Family History Medical History Relation Comments [...] 0.6 oz pur e alcohol) [facility] Utilities Answer Date Recorded In the past [address] [facility] [employer], [employer], or [employer] threatened to shut off services in your [...] any time in the past 12 m [facility], were you homeless or living in a alf (including now)? 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) 08/15/2020 07/18/2020, 07/03/2020 PHQ-2 (Physician [place]) 03/02/2024 DTaP, Tdap and Td Vaccines ( [...] age to complete this topic Insurance [facility] Advance Directives * DNR (Latest Code Status on File) Date Activated Date Inactivated Comments 01/15/2019 2:10 AM 01/16/2019 5:50 PM * DNR Date Activated Date Inactivated Comments 12/20/2018 3:14 PM 12/21/2018 7:59 PM Care Teams Chest Pain Coordinator Relationship Specialty Start Date End Date Joan Rojas DO [address] [place] [address] PCP - General FAMILY PRACTICE 06/21/24 Nola Franklin, [facility]- NURSE PRACTITIONER 05/19/20 Jim White MD [facility] [address] [place] [address] Franklin Belt Tender INTERVENTIONAL CARDIOLOGY 02/21/19
[2024-10-19 11:09] LABS: Anion Gap 8 mmol/L (4-12); Blood Urea Nitrogen 6 mg/dL (7-17); Calcium 8.9 mg/dL (8.4-10.2); Carbon Dioxide 25 mmol/L (22-30); Chloride 104 mmol/L (98-107); Estimated Glomerular Filt Rate 52; Glucose 100 mg/dL (65-110); Potassium 3.4 mmol/L (3.4-5.0); Sodium 137 mmol/L (137-145)
== END 2024-10-19 10:22 | disposition home or self-care (01) ==
PROVIDERS: PCP Family Medicine; Visit Provider Family Medicine
DX: E87.6 Hypokalemia (principal); Z79.899 Other long term (current) drug therapy
CPT/HCPCS: 36415; 80048

== ENCOUNTER 2024-10-26 14:42 | Emergency (ER) | payer MEDICARE, SELFPAY ==
--- NOTE | ~2024-10-26 | XR_ITS ---
EXAMINATION: XR shoulder LT min 2V DATE: 10/26/2024 15:12 INDICATION: Fall. Deformity. TECHNIQUE: 2 images of the left shoulder were obtained. COMPARISON: None FINDINGS: Bones appear osteopenic. Displaced and foreshortened fracture of the middle third of the left clavicle. Severe narrowing of the subacromial joint space. Moderate joint space narrowing in the left acromioclavicular joint. No dislocation of the left humeral head relative to the left, humeral joint. Kyphoplasties is in the thoracic spine. IMPRESSION: 1.Displaced and foreshortened fracture of the middle third of the left clavicle. 2. Severe narrowing of the subacromial joint space which is favored to be secondary to rotator cuff pathology. Reviewed, dictated and finalized at location Q. IMPRESSION: 1.Displaced and foreshortened fracture of the middle third of the left clavicle . 2. Severe narrowing of the subacromial joint space which is favored to be secon eliud to rotator cuff pathology.
--- NOTE | ~2024-10-26 | XR_ITS ---
EXAMINATION: XR chest 1V portable, 10/26/2024 16:30 CDT HISTORY: s/p fall, Left sided rib pain COMPARISON: No comparisons available. Technique: Single view. Findings: The lungs are clear, no effusion. No pneumothorax. Heart is normal size. Mediastinal and hilar contours are within normal limits. There is a displaced fracture of the left mid clavicle with overlap measuring 2 cm Impression: Left clavicle fracture Reviewed, dictated and finalized at location A. Impression: Left clavicle fracture
--- NOTE | ~2024-10-26 | CT_ITS ---
EXAMINATION: CT chest abdomen pelvis wo con DATE: 10/26/2024 17:33 INDICATION: Left rib pain post fall TECHNIQUE: Computed tomography (CT) of the chest, abdomen, and pelvis was performed without intravenous contrast. Automated exposure control and iterative reconstruction technique were employed. The dose-length product was 378.45 mGy-cm. COMPARISON: CT dated 07/15/2024 and 10/10/2024 FINDINGS: CHEST CT: Mild emphysema. Multiple scattered bilateral calcified pulmonary nodules along with calcified left hilar and mediastinal lymph nodes consistent with old granulomatous disease. Mild dependent atelectasis in the right lower lobe. No pneumonia, pulmonary edema, pleural effusion or pneumothorax. Heart size is normal. Small amount of atherosclerotic coronary artery calcific lesion. No pericardial effusion. Thoracic aorta is normal in caliber. No pathologically enlarged thoracic lymphadenopathy. Chronic T5-T7 compression fractures with change of prior vertebroplasty. 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 Additional unchanged old healed fracture the anterior left second-sixth ribs. There is also a bone island at the anterior left sixth rib. Progressive callus formation about a likely still ununited lateral right fifth rib fracture. No acute rib fractures identified. Mildly comminuted oblique mid diaphyseal fracture of the left clavicle with 8 mm posterior displacement of the lateral fragment and is additional small intervening fracture fragment at the lateral margin of the fracture. ABDOMEN/PELVIS CT: Multiple hepatic and splenic calcific lesions consistent with old granulomatous disease. Cholecystectomy clips at the gallbladder fossa. Pancreas, bilateral adrenal glands and kidneys are normal. There is mild colonic diverticulosis with a sigmoid predominance. There is no adjacent inflammatory change to suggest diverticulitis. No bowel obstruction. Small fat-containing umbilical hernia. Bladder is normal. The uterus is not identified and has likely been surgically resected. There is calcified atherosclerosis of the aorta and many of the other arteries. No free intraperitoneal gas or fluid. No pathologically enlarged abdominal or pelvic lymphadenopathy. Small region of osteonecrosis at the bilate ral femoral heads. No acute osseous adenopathy in the lumbar spine, pelvis or proximal femurs. IMPRESSION: 1. Displaced mildly comminuted mid diaphyseal fracture of the left clavicle. No other acute fracture or acute vascular or visceral organ injury in the chest, abdomen or pelvis. Reviewed, dictated and finalized at location A.
[2024-10-26 14:45] VITALS: BP 140/81; PULSE 89; RESP 16; TEMP 36.3; O2SAT 98
--- OUTSIDE RECORDS SUMMARY | 2024-10-26 14:50 | XMS_ITS | Encounter Summary ---
Author Organization [facility] Address [address] [place] [address] Phone Care Team Providers Care Tank House Operator Name Role Phone RigobertoNola MARBLE CLEANER Unavailable [phone] Doreen Mejía MARBLE CLEANER Primary Care Provider [phone] No, Physician Primary Care Provider [phone] Encounter Details Date Type Department Care Team (Late st Contact Info) Description 10/29/2020 Telephone [facility] Oncology [address] [facility] Advanced Medicine 7th [place] [address] [place] [address] Wendy Ng Social History Tobacco Use Types Packs/Day Years Used Date Smoking Tobacco: Every Day Cigarettes Alcohol Use Standard Drinks/Week Comments Not Currently 0 (1 standard drink = 0.6 oz pur e alcohol) Comments Unknown Sex and Gender Information Value Date Recorded Sex Assigned at Not on file Legal Sex Female 7:06 PM WAREHOUSE INSULATION WORKER Gender Identity Not on file Sexual Orientation Not on file documented as of this encounter Plan of Treatment Not on file documented as of this encounter Visit Diagnoses Not on filedocumented in this encounter Additional Health Concerns Infection Onset Date Last Indicated Resolved Time COVID: Suspected 04/06/2023 04/06/2023 04/06/2023 2:38 PM WAREHOUSE INSULATION WORKER documented as of this encounter Care Teams Tank House Operator Relationship Specialty Start Date End Date Doreen Mejía NP [address] [place] [address] PCP - General Internal Medicine 12/05/20 02/02/24 No, Physician PCP - General 02/03/24 Nola Franklin NP [address] [place] [address] Nurse Practitioner Nurse Practitioner 11/06/20 12/04/20 documented as of this encounter
--- OUTSIDE RECORDS SUMMARY | 2024-10-26 14:50 | XMS_ITS | Clinical Summary ---
Author Organization [facility] HealthCare Care Team Providers Care Waste Elimination Name Role Phone No, Physician Primary Care Provider [phone] Allergies Active Allergy Reactions Criticality Noted Date [...] on file Legal Sex Female 7:06 PM SHEET METAL ROOFER Gender Identity Not on file Sexual Orientation Not on file Obstetrics History Last Filed Vital Signs Vital Sign Reading Time Taken Comments Blood Pressure 126/73 02/03/2024 2:00 PM SHEET METAL ROOFER Pulse 79 02/03/2024 2:00 PM SHEET METAL ROOFER Temperature 36.8 C (98.3 F) 02/03/2024 11:22 AM SHEET METAL ROOFER Respiratory Rate 17 02/03/2024 11:2 2 AM SHEET METAL ROOFER Oxygen Saturation 94% 02/03/2024 2:00 PM SHEET METAL ROOFER Inhaled Oxygen Concentration - - Weight 58.5 kg (128 lb 14.4 oz) 01/07/2024 4:14 PM SHEET METAL ROOFER Height 157.5 cm (5' 2.01) 01/07/2024 4:14 PM CS T Body Mass Index 23.57 01/07/2024 4:14 PM SHEET METAL ROOFER Plan of Treatment Health Maintenance Due Date [...] 08/13/2022, 08/2016 Insurance UHC MEDICARE ADVANTAGE [facility] Address: [place] [address] [facility] Address: [place] [address] UHC MEDICARE ADVANTAGE [facility] Address: [facility] [address] [place] [address] Care Teams Waste Elimination Relationship Specialty Start Date End Date No, Physician PCP - General 02/03/24
--- OUTSIDE RECORDS SUMMARY | 2024-10-26 14:50 | XMS_ITS | Clinical Summary ---
Author Organization [facility] Address [address] [place] [address] Care Team Providers Care Mime Artist Name Role Phone Nola Franklin MARGARINE MAKER-BC Unavailable [phone] Jim White MD Unavailable [phone] Joan Rojas DO Primary Care Provider [phone] Allergies Active Allergy Reactions Criticality Noted Date [...] of aorta Hypertension AARON on CPAP Lymphoma ([facility]/HCC [facility]/HCC) Family History Medical History Relation Comments Cancer [...] drink = 0.6 oz pur e alcohol) [facility] Utilities Answer Date Recorded In the past 12 months has [facility] [employer], [employer], or [employer] threatened to shut off services in your [...] any time in the past 12 m [facility], were you homeless or living in a senior care (including now)? 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- NURSE PRACTITIONER 05/19/20 Jim White MD [facility] [address] [place] [address] Franklin Shut Off Worker INTERVENTIONAL CARDIOLOGY 02/21/19
--- OUTSIDE RECORDS SUMMARY | 2024-10-26 14:50 | XMS_ITS | Encounter Summary ---
Author Organization [facility] Address [address] [place] [address] Care Team Providers Care Radioactivity Technician Name Role Phone Nola Franklin TOY ELECTRIC TRAIN REPAIRER-BC Primary Care Provider [phone] Rigoberto Crystal L TOY ELECTRIC TRAIN REPAIRER-BC Primary Care Provider [phone] Rigoberto Crystal L TOY ELECTRIC TRAIN REPAIRER-BC Unavailable [phone] Jim White MD Unavailable [phone] Joan Rojas DO Primary Care Provider [phone] Encounter Details Date Type Department Care Team (Late st Contact Info) Description 01/17/2019 Hospital Follow-up Call [facility] Clinical Decision Unit [place], [place] [id number] Lan Arreola, [place] Social History Tobacco [...] 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 Answer Date of Assessment Author Status No 01/15/2019 7:00 AM MAINTENANCE SUPERVISOR 2ND SHIFT Activ e * Do you have serious [...] documented as of this encounter Care Teams Radioactivity Technician Relationship Specialty Start Date End Date Nola Franklin FNP-BC PCP - General NURSE PRACTITIONER 11/02/18 05/18/20 Nola Franklin FNP-BC PCP - General NURSE PRACTITIONER 05/19/20 06/20/24 Joan Rojas DO [address] [place] [address] [place] [address] PCP - General FAMILY PRACTICE 06/21/24 Nola Franklin, [facility]- NURSE PRACTITIONER 05/19/20 Jim White MD [address] [place] [address] [employer] INTERVENTIONAL CARDIOLOGY 02/21/19 documented as of this encounter
--- OUTSIDE RECORDS SUMMARY | 2024-10-26 16:00 | XMS_ITS | Clinical Summary ---
Author Organization [facility] Care Team Providers Care Master Cook Name Role Phone No, Physician Primary Care Provider [phone] Allergies Active Allergy Reactions Criticality Noted Date [...] on file Legal Sex Female 7:06 PM COMPLIANCE EXAMINER Gender Identity Not on file Sexual Orientation Not on file Obstetrics History Last Filed Vital Signs Vital Sign Reading Time Taken Comments Blood Pressure 126/73 02/03/2024 2:00 PM COMPLIANCE EXAMINER Pulse 79 02/03/2024 2:00 PM COMPLIANCE EXAMINER Temperature 36.8 C (98.3 F) 02/03/2024 11:22 AM COMPLIANCE EXAMINER Respiratory Rate 17 02/03/2024 11:2 2 AM COMPLIANCE EXAMINER Oxygen Saturation 94% 02/03/2024 2:00 PM COMPLIANCE EXAMINER Inhaled Oxygen Concentration - - Weight 58.5 kg (128 lb 14.4 oz) 01/07/2024 4:14 PM COMPLIANCE EXAMINER Height 157.5 cm (5' 2.01) 01/07/2024 4:14 PM CS T Body Mass Index 23.57 01/07/2024 4:14 PM COMPLIANCE EXAMINER Plan of Treatment Health Maintenance Due Date [...] Completed 08/13/2022, 08/2016 Insurance UHC MEDICARE ADVANTAGE [facility] REF UHC MEDICARE ADVANTAGE Care Teams Master Cook Relationship Specialty Start Date End Date No, Physician PCP - General 02/03/24
--- OUTSIDE RECORDS SUMMARY | 2024-10-26 16:00 | XMS_ITS | Encounter Summary ---
Author Organization [facility] Address [address] [place] [address] Care Team Providers Care Supervisor Production Department Name Role Phone Nola Franklin SLEEVER-BC Primary Care Provider [phone] Rigoberto Crystal L SLEEVER-BC Primary Care Provider [phone] Rigoberto Crystal L SLEEVER-BC Unavailable [phone] Jim White MD Unavailable [phone] Joan Rojas DO Primary Care Provider [phone] Encounter Details Date Type Department Care Team (Late st Contact Info) Description 01/17/2019 Hospital Follow-up Call 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 Answer Date of Assessment Author Status No 01/15/2019 7:00 AM JOINERY FACTORY WORKER Activ e * Do you have serious [...] documented as of this encounter Care Teams Supervisor Production Department Relationship Specialty Start Date End Date Nola Franklin FNP-BC PCP - General NURSE PRACTITIONER 11/02/18 05/18/20 Nola Franklin FNP-BC PCP - General NURSE PRACTITIONER 05/19/20 06/20/24 Joan Rojas DO [address] [place] [address] [place] [address] PCP - General FAMILY PRACTICE 06/21/24 Nola Franklin, [facility]- NURSE PRACTITIONER 05/19/20 Jim White MD [id number] [place] [address] [place] [employer] Nutrition Specialist INTERVENTIONAL CARDIOLOGY 02/21/19 documented as of this encounter
--- OUTSIDE RECORDS SUMMARY | 2024-10-26 16:00 | XMS_ITS | Encounter Summary ---
Author Organization [facility] Address [address] [place] [address] Phone Care Team Providers Care Relationship Advisor Name Role Phone RigobertoNola CERTIFIED PERSONAL CHEF Unavailable [phone] Doreen Mejía CERTIFIED PERSONAL CHEF Primary Care Provider [phone] No, Physician Primary Care Provider [phone] Encounter Details Date Type Department Care Team (Late st Contact Info) Description 10/29/2020 Telephone [facility] Oncology [address] [facility] Advanced Medicine 7th [place] [address] [place] [address] Wendy Ng Social History Tobacco Use Types Packs/Day Years Used Date Smoking Tobacco: Every Day Cigarettes Alcohol Use Standard Drinks/Week Comments Not Currently 0 (1 standard drink = 0.6 oz pur e alcohol) Comments Unknown Sex and Gender Information Value Date Recorded Sex Assigned at Not on file Legal Sex Female 7:06 PM PARCEL POST DELIVERY Gender Identity Not on file Sexual Orientation Not on file documented as of this encounter Plan of Treatment Not on file documented as of this encounter Visit Diagnoses Not on filedocumented in this encounter Additional Health Concerns Infection Onset Date Last Indicated Resolved Time COVID: Suspected 04/06/2023 04/06/2023 04/06/2023 2:38 PM PARCEL POST DELIVERY documented as of this encounter Care Teams Relationship Advisor Relationship Specialty Start Date End Date Doreen Mejía NP [address] [place] [address] PCP - General Internal Medicine 12/05/20 02/02/24 No, Physician PCP - General 02/03/24 Nola Franklin NP [address] [place] [id number] Nurse Practitioner Nurse Practitioner 11/06/20 12/04/20 documented as of this encounter
--- OUTSIDE RECORDS SUMMARY | 2024-10-26 16:00 | XMS_ITS | Clinical Summary ---
Author Organization [facility] Address [address] [place] [address] Care Team Providers Care Bowling Ball Engraver Name Role Phone Nola Franklin COMPLIANCE AUDITOR-BC Unavailable [phone] Jim White MD Unavailable [phone] Joan Rojas DO Primary Care Provider [phone] Allergies Active Allergy Reactions Criticality Noted Date [...] of aorta Hypertension AARON on CPAP Lymphoma ([facility]/HCC [facility]/HCC) Family History Medical History Relation Comments [...] drink = 0.6 oz pur e alcohol) [facility] Utilities Answer Date Recorded In the past 12 months has [facility] POS on [employer], [employer], or [employer] threatened to shut off services in your [...] any time in the past 12 m [facility], were you homeless or living in a fci (including now)? 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 Not [...] risk series) 08/15/2020 07/18/2020, 07/03/2020 PHQ-2 (Physician [place]) 03/02/2024 DTaP, Tdap and Td Vaccines ( [...] patient's age to complete this topic Insurance [facility] Advance Directives * DNR (Latest Code Status on File) Date Activated Date Inactivated Comments 01/15/2019 2:10 AM 01/16/2019 5:50 PM * DNR Date Activated Date Inactivated Comments 12/20/2018 3:14 PM 12/21/2018 7:59 PM Care Teams Bowling Ball Engraver Relationship Specialty Start Date End Date Joan Rojas DO [address] [place] [address] PCP - General FAMILY PRACTICE 06/21/24 Nola Franklin, [facility]- NURSE PRACTITIONER 05/19/20 Jim White MD [facility] [address] [place] [address] [facility] Father INTERVENTIONAL CARDIOLOGY 02/21/19
--- NOTE | 2024-10-26 16:20 | ED.GENADULT ---
HPI - General Adult General Chief complaint: Extremity Injury, Upper Stated complaint: fall, left shoulder/clavicle injury Time Seen by Provider: 10/26/24 15:51 History of Present Illness HPI narrative: This is a 69-year-old female presenting after ground level fall. Patient says that she tripped landing on her left side. She then had immediate pain in her left collar bone. She did not strike her head. She has not use blood thinners. She does not have any weakness to her home. Related Data Home Medications ?Medication ?Instructions ?Recorded ?Confirmed ?Last Taken ?Type albuterol sulfate 2.5 mg/3 mL mg inhalation 05/10/24 06/30/24 Unknown History (0.083 %) solution for nebulization albuterol sulfate 90 mcg/actuation inhalation 05/10/24 06/30/24 Unknown History aerosol inhaler fluticasone fur. 100 mcg-umeclid 2 inh inhalation DAILY 05/10/24 06/30/24 Unknown History 62.5 mcg-vilant 25 mcg inhalat.powder (Trelegy Ellipta) levothyroxine 75 mcg tablet mcg PO 05/10/24 06/30/24 Unknown History lidocaine 5 % topical patch patch transdermal 05/10/24 06/30/24 Unknown History methylnaltrexone 150 mg tablet 450 mg PO DAILY 05/10/24 06/30/24 Unknown History (Relistor) oxycodone-acetaminophen 7.5 mg-325 tablet PO 05/10/24 06/30/24 Unknown History mg tablet pregabalin 75 mg capsule 75 mg PO BID 05/10/24 06/30/24 Unknown History gabapentin 600 mg tablet 600 mg PO 06/30/24 06/30/24 Unknown History ondansetron 4 mg disintegrating 4 mg PO PRN 06/30/24 06/30/24 Unknown History tablet Allergies Allergy/AdvReac Type Severity Reaction Status Date / Time methadone Allergy Intermediate Hives Verified 10/26/24 14:47 prochlorperazine (From Allergy Intermediate Other Verified 10/26/24 14:47 Compazine) sulfamethoxazole (From Allergy Mild Itching Verified 10/26/24 14:47 Bactrim) trimethoprim (From Bactrim) Allergy Mild Itching Verified 10/26/24 14:47 clarithromycin Allergy Unknown SWELLING Verified 10/26/24 14:47 contrast media Allergy Severe Itching Uncoded 10/26/24 14:47 Contrast Media Allergy Unknown ITCHING Uncoded 10/26/24 14:47 [facility] Past Medical History Medical History Colitis Cancer of lymphatic and hematopoietic tissue Family History Family History Mother Alcoholism Family history of cancer Hypertension Depression Anxiety Heart disease Daughter Asthma Family history of cancer Hypertension Anxiety Depression Social History Social History Smoking packs per day: 1 Smoking cigarettes per day: 20.0 Smoking status: Current every day smoker Alcohol intake: former Substance use: current Do You Feel Safe in your Home?: Yes Lack of Transportation: No Lack of Food: Never True Current Housing: I Have Housing Concerned About Future Housing: No Difficulty Paying Gas/Electric Bills: No Difficulty Paying for Meds: No Currently Unemployed: Decline to Answer Education: Trade/Vocational Certificate Difficulty w/ Childcare or Family Care: No Exam Narrative: APPEARANCE: No apparent distress. Head: atraumatic. EYES: EOMI, NOSE: Atraumatic NECK: Trachea midline RESPIRATORY: No increased rate of breathing CTAB CARDIOVASCULAR: RRR, no peripheral edema ABDOMINAL: Non-distended soft nontender MUSCULOSKELETAl: Tenderness and deformity over left clavicle, no breaks in the skin, no skin tenting, exam of the left arm revealed no deformities or evidence of trauma. Pulses are strong in the Radian ulnar distribution. Radial ulnar median nerve intact. Head to toe trauma exam performed with tenderness over the left rib cage without crepitus or bruising. No other injuries noted. SKIN:: Warm, dry. Normal color PSYCHIATRIC: Normal affect Course Vital Signs Vital signs: Vital Signs Temperature 97.4 F L 10/26/24 14:45 Pulse Rate 89 10/26/24 14:45 Respiratory Rate 16 10/26/24 14:45 Blood Pressure 140/81 10/26/24 14:45 Pulse Oximetry 98 10/26/24 14:45 Temperature 97.4 F L 10/26/24 14:45 Pulse Rate 89 10/26/24 14:45 Respiratory Rate 16 10/26/24 14:45 Blood Pressure 140/81 10/26/24 14:45 Pulse Oximetry 98 10/26/24 14:45 Medical Decision Making [facility] Narrative Medical decision making narrative: -Course: 69-year-old female presenting after ground level fall. Found have a midshaft clavicle fracture neurovascular compromise of the arm. No breaks in the skin or skin tenting that would require urgent orthopedic evaluation. She was complaining of some left-sided rib pain but CT chest abdomen pelvis did not reveal any traumatic injuries or rib fractures. Dr. Hooper was consulted and will see the patient in clinic. Given return precautions -DDX includes but is not limited to: Clavicle fracture, vascular injury, nerve injury, rib fracture Vital Signs Vital Signs: Vital Signs Temperature 97.4 F L 10/26/24 14:45 Pulse Rate 89 10/26/24 14:45 Respiratory Rate 16 10/26/24 14:45 Blood Pressure 140/81 10/26/24 14:45 Pulse Oximetry 98 10/26/24 14:45 Temperature 97.4 F L 10/26/24 14:45 Pulse Rate 89 10/26/24 14:45 Respiratory Rate 16 10/26/24 14:45 Blood Pressure 140/81 10/26/24 14:45 Pulse Oximetry 98 10/26/24 14:45 Discharge Plan Discharge Clinical Impression: Clavicle fracture Patient Disposition: Home Condition: Stable Instructions: Antibiotic Form, Clavicle Fracture (DC) Additional Instructions: You have a clavicle fracture. Please keep your arm in the sling until you're evaluated by Orthopedic surgery. Please return to ED if you develop severe pain or weakness your arm. Use over the counter Motrin and Tylenol as needed for pain. Please call Dr. Hooper's clinic 1st thing tomorrow morning to arrange follow-up. Patient Language: Tamazight Prescriptions: New acetaminophen 500 mg tablet 1,000 mg PO TID PRN (Reason: augustin) 7 Days Qty: 42 0RF ibuprofen 800 mg tablet 800 mg PO TID PRN (Reason: pain) 7 Days Qty: 21 0RF No Action oxycodone-acetaminophen 7.5-325 mg tablet PO albuterol sulfate 2.5 mg /3 mL (0.083 %) solution for nebulization inhalation levothyroxine 75 mcg tablet PO lidocaine 5 % adhesive patch,medicated transdermal albuterol sulfate 90 mcg/actuation HFA aerosol inhaler inhalation Relistor 150 mg tablet 450 mg PO DAILY pregabalin 75 mg capsule 75 mg PO BID Trelegy Ellipta 100-62.5-25 mcg blister with device 2 inh inhalation DAILY gabapentin 600 mg tablet 600 mg PO ondansetron 4 mg tablet,disintegrating 4 mg PO PRN pantoprazole 40 mg tablet,delayed release (DR/EC) 40 mg PO DAILY Qty: 90 1RF cephalexin 500 mg capsule 500 mg PO Q8H 7 Days Qty: 21 0RF ondansetron 4 mg tablet,disintegrating 4 mg PO Q8H PRN (Reason: nausea and vomiting) Qty: 14 0RF metoclopramide HCl [Reglan] 10 mg tablet 10 mg PO Q6H PRN (Reason: nausea and vomiting) Qty: 14 0RF propranolol 10 mg tablet 10 mg PO TID PRN (Reason: tremors) Qty: 270 1RF paroxetine HCl 40 mg tablet 40 mg PO DAILY Qty: 90 1RF atorvastatin [Lipitor] 80 mg tablet 80 mg PO QHS Qty: 90 1RF amlodipine 10 mg tablet 10 mg PO DAILY Qty: 90 1RF losartan 100 mg tablet 100 mg PO DAILY Qty: 90 1RF potassium chloride [K-Tab] 20 mEq tablet extended release 20 meq PO DAILY Qty: 90 0RF Follow-up/Referrals: Patric Hooper MD [Physician, Orthopedics] - 3 Days Referral Note: Clavicle fracture Joan Rojas DO [Primary Care Provider, Family Practice]
[2024-10-26] MEDS: HYDROcodone/acetaminophen (*CRX) 5-325 MG TABLET 2 TAB PO (16:37)
[2024-10-26 17:00] LABS: Hematocrit 35.3 % (37.0-47.0); Hemoglobin 11.2 g/dL (12.0-15.0); Immature Granulocyte Percent A 0.8 % (0-0.5); Lymphocytes Absolute Auto 2.01 K/mm3 (0.9-3.2); Mean Corpuscular HGB Conc 31.7 g/dl (32-36); Mean Corpuscular Hemoglobin 28.9 pg (26-34); Mean Corpuscular Volume 91.0 fl (80-100); Nucleated Red Blood Cells Absolute Auto 0.000 K/mm3 (0.0-0.012); Nucleated Red Blood Cells Perc 0.0 % (0.0-0.2); Platelet Count Result 535 k/mm3 (150-375); Red Blood Count 3.88 M/mm3 (4.2-5.4); White Blood Count 6.6 K/mm3 (4.5-10.0)
[2024-10-26 17:09] LABS: Alanine Aminotransferase 12 U/L (6-35); Albumin Level 3.6 g/dL (3.5-5.1); Alkaline Phosphatase 88 U/L (38-126); Anion Gap 6 mmol/L (4-12); Aspartate Amino Transferase 21 U/L (14-36); Bilirubin,Total 0.1 mg/dL (0.2-1.3); Blood Urea Nitrogen 14 mg/dL (7-17); Calcium 9.5 mg/dL (8.4-10.2); Carbon Dioxide 24 mmol/L (22-30); Chloride 105 mmol/L (98-107); Estimated CRCL calculation 38 ml/min; Estimated Glomerular Filt Rate 57; Glucose 101 mg/dL (65-110); Potassium 4.5 mmol/L (3.4-5.0); Sodium 135 mmol/L (137-145); Total Protein 6.8 g/dL (6.3-8.2)
[2024-10-26 18:22] VITALS: PULSE 92; RESP 18; O2SAT 100
== END 2024-10-26 18:23 | disposition home or self-care (01) ==
PROVIDERS: Emergency Provider Emergency Medicine; PCP Family Medicine
DX: S42.022A Displaced fracture of shaft of left clavicle, initial encounter for closed fracture (principal); Z85.72 Personal history of non-Hodgkin lymphomas; Z85.89 Personal history of malignant neoplasm of other organs and systems; W01.0XXA Fall on same level from slipping, tripping and stumbling without subsequent striking against object, initial encounter
CPT/HCPCS: 36415; 71045; 71250; 73030; 74176; 80053; 85025; 99284; A4565; A9270

== ENCOUNTER 2024-11-02 18:17 | Emergency (ER) | payer MEDICARE, SELFPAY ==
--- OUTSIDE RECORDS SUMMARY | 2013-06-28 03:04 | XMS_ITS | Continuity of Care Document ---
Author Organization [facility] Address [address] [place] [address] Phone Care Team Providers Care Income Tax Investigator Name Role Phone Mick PT, DPT, Clark Unavailable Unava ilable Procedures Procedure Date THERAPEUTIC EXERCISES NEUROMUSCULAR RE-ED MANUAL THERAPY FUNC ACTIVITY 15 MIN HOT/COLD PACK THERAPEUTIC EXERCISES NEUROMUSCULAR RE-ED MANUAL THERAPY FUNC ACTIVITY 15 MIN THERAPEUTIC EXERCISES NEUROMUSCULAR RE-ED MANUAL THERAPY FUNC ACTIVITY 15 MIN THERAPEUTIC EXERCISES NEUROMUSCULAR RE-ED MANUAL THERAPY FUNC ACTIVITY 15 MIN THERAPEUTIC EXERCISES NEUROMUSCULAR RE-ED MANUAL THERAPY FUNC ACTIVITY 15 MIN HOT/COLD PACK THERAPEUTIC EXERCISES NEUROMUSCULAR RE-ED MANUAL THERAPY FUNC ACTIVITY 15 MIN THERAPEUTIC EXERCISES MANUAL THERAPY FUNC ACTIVITY 15 MIN THERAPEUTIC EXERCISES MANUAL THERAPY FUNC ACTIVITY 15 MIN PT EVALUATION THERAPEUTIC EXERCISES Advance Directives Directive Yes / No Effective Date File Name No Information Encounters Encounter Description Practice Location Reason(s) For Visit Diagnoses Date Provider Providers [facility] [address], [place], [place], [id number], [place] tel:[phone] [place] No Information May-2 9-201 4 Wielechowski Clark. . [facility], [address], [place], [place], [id number], [place] tel:[phone] [place] No Information Mar-2 0-201 4 Lu Barton. [address] [facility], [place], [address], [place]. tel:[phone] [facility], [address], [place], [place], [id number], [place] tel:[phone] [place] No Information Apr-1 - 4 Wielechowski Clark. . [facility], [place], [place], [id number], [place] tel:[phone] [place] No Information Mar-1 7-201 4 Wielechowski Clark. . [facility], [address], [place], [place], [id number], [place] tel:[phone] [place] No Information Mar-1 1-201 4 Wielechowski Clark. . [facility], [address], [place], [place], [id number], [place] tel:[phone] [place] No Information Mar-0 7-201 4 Wielechowski Clark. . [facility], [address], [place], [place], [address], [place] tel:[phone] [place] No Information Mar-0 5-201 4 Wielechowski Clark. . [facility], [address], [place], [place], [address], [place] tel:[phone] [place] No Information Mar-0 3-201 4 Wielechowski Clark[address] . [facility] [facility] [address], [place], [place], [address], [place] tel:[phone] [place] No Information Mick Gallagher [facility] [facility] [address] [place], [place], [id number], tel:[phone] [place] Pain in joint involving lower leg 4 Mick Gallagher Family History Family Member Type Diagnosis Age At Onset No Information Payers Payer name Insurance type Covered republican ID Authoriza tieaston(s) Resurrection O Physician Marleen nix [facility] [id number] Social History Type Description Quantity Date Captured Comments Sex Female Smoking Status No Information Chief Complaint And Reason For Visit No Information Reason For Referral Reason For Referral No Information History Of Present Illness Encounter Date Complaint History Of Prese nt Illness No Information Functional Status Date Functional Assessmen t No Information Instructions Date Instruction Additional Infor mation No Information Assessments Type Assessment Date No Information Patient Care Teams Name Effective Dates (start - stop) Status Members No Information
--- OUTSIDE RECORDS SUMMARY | 2021-05-29 19:00 | XMS_ITS | Continuity of Care Document ---
Author Organization [facility] Address [address] [place] [address] Care Team Providers Care Warp Clamper Name Role Phone Avery JOHNSON, Morgan Unavailable Unavailable Procedures Procedure Date Ecg-routine 12 Lead; Intrpt & 2 Ecg-routine 12 Lead; Intrpt & 0 Advance Directives Directive Yes / No Effective Date File Name No Information Encounters Encounter Description Practice Location Reason(s) For Visit Diagnoses Date Provider Providers Copied on Encounter [facility], [address] [place] [address], [address], [facility] No Information 2 Avery Mora. [address], [id number] , [place]. tel:[phone] Referring Provider: Morgan Varela, [address], [address] . tel:[phone] [facility], [address] [place] [address], [address], [facility] No Information 0 Sid Renteria. [address], [address], [place]. [phone] Referring Provider: Myra Lenz, [address], [address]. tel:[phone] Family History Family Member Type Diagnosis Age At Onset No Information Payers Payer name Insurance type Covered alliance party ID Authornessa call(s) Medicare 16 [address] MB [id number] Social History Type Description Quantity Date Captured [...]
[2024-11-02 18:05] VITALS: BP 147/86; PULSE 85; RESP 16; TEMP 37; O2SAT 93
[2024-11-02 18:53] LABS: Hematocrit 33.7 % (37.0-47.0); Hemoglobin 10.8 g/dL (12.0-15.0); Immature Granulocyte Percent A 0.9 % (0-0.5); Lymphocytes Absolute Auto 2.48 K/mm3 (0.9-3.2); Mean Corpuscular HGB Conc 32.0 g/dl (32-36); Mean Corpuscular Hemoglobin 29.3 pg (26-34); Mean Corpuscular Volume 91.6 fl (80-100); Nucleated Red Blood Cells Absolute Auto 0.000 K/mm3 (0.0-0.012); Nucleated Red Blood Cells Perc 0.0 % (0.0-0.2); Platelet Count Result 514 k/mm3 (150-375); Red Blood Count 3.68 M/mm3 (4.2-5.4); White Blood Count 9.3 K/mm3 (4.5-10.0)
[2024-11-02 19:05] LABS: Alanine Aminotransferase 12 U/L (6-35); Albumin Level 4.0 g/dL (3.5-5.1); Alkaline Phosphatase 79 U/L (38-126); Anion Gap 7 mmol/L (4-12); Aspartate Amino Transferase 23 U/L (14-36); Bilirubin,Total 0.2 mg/dL (0.2-1.3); Blood Urea Nitrogen 16 mg/dL (7-17); Calcium 9.5 mg/dL (8.4-10.2); Carbon Dioxide 25 mmol/L (22-30); Chloride 106 mmol/L (98-107); Estimated CRCL calculation 35 ml/min; Estimated Glomerular Filt Rate 52; Glucose 98 mg/dL (65-110); Lipase 80 U/L (23-300); Potassium 4.3 mmol/L (3.4-5.0); Sodium 138 mmol/L (137-145); Total Protein 7.4 g/dL (6.3-8.2)
--- NOTE | 2024-11-02 19:37 | ED_ITS ---
HPI - Abdominal Pain General Chief Complaint: Abdominal Pain Stated Complaint: abd apin Time Seen by Provider: 11/02/24 19:27 History of Present Illness HPI narrative: This is a 69-year-old female with history of hypertension, COPD, IBS, hyperlipidemia who presents to the ED for abdominal pain and hernia. Patient states that she has an umbilical hernia and had changed colors and was stuck. EN route, she was able to reduce it and her pain has resolved this time. She states she is currently seeking care for this but believe she was referred to a anthropology department chair as postoperative surgeon. She has been having issues with constipation as she is on new pain medications. She is not on a bowel regimen. Related Data Home Medications ?Medication ?Instructions ?Recorded ?Confirmed ?Last Taken ?Type albuterol sulfate 2.5 mg/3 mL mg inhalation 05/10/24 0 06/30/24 Unknown History (0.083 %) solution for nebulization albuterol sulfate 90 mcg/actuation inhalation 05/10/24 06/30/24 Unknown History aerosol inhaler fluticasone fur. 100 mcg-umeclid 2 inh inhalation MADAY Y 05/10/24 06/30/24 Unknown History 62.5 mcg-vilant 25 mcg inhalat.powder (Trelegy Ellipta) levothyroxine 75 mcg tablet mcg PO 05/10/24 06/30/24 U nknown History lidocaine 5 % topical patch patch transdermal 05/10/24 06/30/24 Unknown History methylnaltrexone 150 mg tablet 450 mg PO DAILY 5 06/30/24 Unknown History (Relistor) oxycodone-acetaminophen 7.5 mg-325 tablet PO 05/10/24 06/30/24 Unknown History mg tablet pregabalin 75 mg capsule 75 mg PO BID 05/10/24 Unknown History gabapentin 600 mg tablet 600 mg PO 06/30/24 06/30/24 Unknown History ondansetron 4 mg disintegrating 4 mg PO PRN 06/30/24 0 06/30/24 Unknown History tablet Allergies Allergy/AdvReac Type Severity Reaction Status Date / Time methadone Allergy Intermediate Hives Verified 10/26/24 14:47 prochlorperazine (From Allergy Intermediate Other Verified 10/26/24 14:47 Compazine) sulfamethoxazole (From Allergy Mild Itching Verified 10/26/24 14:47 Bactrim) trimethoprim (From Bactrim) Allergy Mild Itching Verified 10/26/24 14:47 clarithromycin Allergy Unknown SWELLING Verified 10/26/24 14:47 contrast media Allergy Severe Itching Uncoded 10/26/24 14:47 Contrast Media Allergy Unknown ITCHING Uncoded 10/26/24 14:47 Review of Systems 2 Review of Systems: Gen.: Denies fevers or chills Eyes: Denies eye pain or visual change ENT: Denies congestion Respiratory: Denies shortness of breath or cough CV: Denies chest pain or palpitations GI: As per HPI denies burning, urgency, frequency or hematuria Musculoskeletal: Denies back pain or muscle pain Neuro: Denies numbness, tingling, weakness or focal weakness Skin: Denies rash Except as documented, all other systems reviewed and negative [facility] Past Medical History Medical History Colitis Cancer of lymphatic and hematopoietic tissue Family History Family History Mother Alcoholism Family history of cancer Hypertension Depression Anxiety Heart disease Daughter Asthma Family history of cancer Hypertension Anxiety Depression Social History Social History Smoking packs per day: 1 Smoking cigarettes per day: 20.0 Smoking status: Current every day smoker Alcohol intake: former Substance use: current Do You Feel Safe in your Home?: Yes Lack of Transportation: No Lack of Food: Never True Current Housing: I Have Housing Concerned About Future Housing: No Difficulty Paying Gas/Electric Bills: No Difficulty Paying for Meds: No Currently Unemployed: Decline to Answer Education: Trade/Vocational Certificate Difficulty w/ Childcare or Family Care: No Exam 2 Narrative: APPEARANCE: No acute distress, nontoxic, resting in bed EYES: EOMI HEENT: Normocephalic, atraumatic, OMM RESPIRATORY: No respiratory distress Clear to auscultation bilaterally with no rhonchi wheezing or rales. CARDIOVASCULAR: Regular rate and rhythm without murmurs rubs or gallops. ABDOMINAL: Soft, nontender, nondistended, no rebound or guarding. reducible umbilical hernia with no overlying skin changes MUSCULOSKELETAl: Moves all extremities. No clubbing, cyanosis or edema. NEURO: Awake and alert. Following commands, speech normal, no focal deficits SKIN:: Warm, dry. No rashes lesions or abrasions PSYCHIATRIC: Normal affect/mood, Course Vital Signs Vital signs: Vital Signs Temperature 98.6 F 11/02/24 18:05 Pulse Rate 85 11/02/24 18:05 Respiratory Rate 16 11/02/24 18:05 Blood Pressure 147/86 H 11/02/24 18:05 Pulse Oximetry 93 11/02/24 18:05 Oxygen Delivery Room Air 11/02/24 18:05 Temperature 98.4 F 11/02/24 20:01 Pulse Rate 80 11/02/24 20:01 Respiratory Rate 15 11/02/24 20:01 Blood Pressure 138/80 11/02/24 20:01 Pulse Oximetry 94 11/02/24 20:01 Oxygen Delivery Room Air 11/02/24 18:05 MDM - Abdominal Pain MDM Narrative Medical decision making narrative: 69-year-old female who presented to the ED abdominal pain hernia. On initial evaluation, patient was in no acute distress, afebrile, hemodynamically stable. She did have a reducible umbilical hernia. It did sound like it was incarcerated briefly but she was able to reduce it. Imaging is not indicated this time. Labs obtained prior to my initial evaluation showed no acute changes. Patient will be started on an aggressive bowel regimen to help prevent worsening her hernia. She will be given to General surgery for further discussion possible surgical management. Patient and family are agreeable to this plan. Given strict return precautions. Differential Diagnosis Differential diagnosis: Likely abdominal pain, small bowel obstruction and other (hernia, ) Medical Records Attestation: I reviewed the patient's medical records. Lab Data Attestation: I reviewed the patient's lab results. 11/02/24 18:47 11/02/24 18:47 Labs: Lab Results 11/02/24 11/02/24 11/02/24 Range/Units 18:47 18:49 18:59 WBC 9.3 (4.5-10.0) K/mm3 RBC 3.68 L (4.2-5.4) M/mm3 Hgb 10.8 L (12.0-15.0) g/dL Hct 33.7 L (37.0-47.0) % MCV 91.6 (80-100) fl MCH 29.3 (26-34) pg MCHC 32.0 (32-36) g/dl RDW 14.5 (11.5-14.5) % Plt Count 514 H (150-375) k/mm3 MPV 8.1 (7.4-10.4) fl Immature Gran % (Auto) 0.9 H (0-0.5) % Neut % (Auto) 60.2 (45.5-73.1) % Lymph % (Auto) 26.6 (18.3-44.2) % Mcdowell % (Auto) 8.6 H (2.6-8.5) % Eos % (Auto) 2.6 (0-4.4) % Baso % (Auto) 1.1 (0.2-1.2) % Lymph # (Auto) 2.48 (0.9-3.2) K/mm3 Mcdowell # (Auto) 0.8 H (0.1-0.6) K/mm3 Eos # (Auto) 0.2 (0-0.3) K/mm3 Baso # (Auto) 0.1 (0.0-0.1) K/mm3 Abs Immat Gran (auto) 0.08 H (0.00-0.031) K/mm3 Absolute Neuts (auto) 5.6 (1.3-6.7) K/mm3 Absolute Nucleated RBC 0.000 (0.0-0.012) K/mm3 Nucleated RBC % 0.0 (0.0-0.2) % Sodium 138 (137-145) mmol/L Potassium 4.3 (3.4-5.0) mmol/L Chloride 106 (98-107) mmol/L Carbon Dioxide 25 (22-30) mmol/L Anion Gap 7 (4-12) mmol/L BUN 16 (7-17) mg/dL Creatinine 1.05 H (0.7-1.0) mg/dL Estim Creat Clear Calc 35 ml/min Estimated GFR 52 L (59 - ) Glucose 98 (65-110) mg/dL Lactic Acid 0.8 (0.7-2.0) mmol/L Calcium 9.5 (8.4-10.2) mg/dL Total Bilirubin 0.2 (0.2-1.3) mg/dL AST 23 (14-36) U/L ALT 12 (6-35) U/L Alkaline Phosphatase 79 (38-126) U/L Total Protein 7.4 (6.3-8.2) g/dL Albumin 4.0 (3.5-5.1) g/dL Lipase 80 (23-300) U/L Urine Color Yellow (Yellow) Urine Appearance Cloudy H (Clear) Urine pH 5.5 (5.0-9.0) Ur Specific [place] 1.010 (1.001-1.035) Urine Protein Negative (Negative) mg/dL Urine Glucose (UA) Negative (Negative) mg/dL Urine Ketones Negative (Negative) mg/dL Ur Blood (Man) Negative (Negative) Urine Nitrate Negative (Negative) Urine Bilirubin Negative (Negative) Urine Urobilinogen 0.2 (<2.0) mg/dL Leukocyte Esterase Rfl 1+ H (Negative) SANTHOSH/UL Urine RBC 0-2 (0-2) /hpf Urine WBC 21-50 H (0-3) /hpf Ur Squamous Epith Cells Moderate (Few) /hpf Urine Bacteria Rare /hpf Urine Casts 0-2 Discharge Plan Discharge Clinical Impression: Hernia, umbilical Qualifiers: Obstruction and gangrene presence: without obstruction or gangrene Qualified Code(s): K42.9 - Umbilical hernia without obstruction or gangrene Patient Disposition: Home Condition: Stable Instructions: Antibiotic Form, Umbilical Hernia (ED) Additional Instructions: Follow-up with general surgery to discuss possible for surgical repair. Try an aggressive bowel regimen, take 1 cap of MiraLax 1 to 2 times a day. Take docusate -Senokot daily. Add fiber supplementation. Follow-up with PCP in the next week for evaluation. Return to ED for any new or worsening symptoms. Patient Language: Tanzanian Prescriptions: No Action oxycodone-acetaminophen 7.5-325 mg tablet PO albuterol sulfate 2.5 mg /3 mL (0.083 %) solution for nebulization inhalation levothyroxine 75 mcg tablet PO lidocaine 5 % adhesive patch,medicated transdermal albuterol sulfate 90 mcg/actuation HFA aerosol inhaler inhalation Relistor 150 mg tablet 450 mg PO DAILY pregabalin 75 mg capsule 75 mg PO BID Trelegy Ellipta 100-62.5-25 mcg blister with device 2 inh inhalation DAILY gabapentin 600 mg tablet 600 mg PO ondansetron 4 mg tablet,disintegrating 4 mg PO PRN pantoprazole 40 mg tablet,delayed release (DR/EC) 40 mg PO DAILY Qty: 90 1RF cephalexin 500 mg capsule 500 mg PO Q8H 7 Days Qty: 21 0RF ondansetron 4 mg tablet,disintegrating 4 mg PO Q8H PRN (Reason: nausea and vomiting) Qty: 14 0RF metoclopramide HCl [Reglan] 10 mg tablet 10 mg PO Q6H PRN (Reason: nausea and vomiting) Qty: 14 0RF acetaminophen 500 mg tablet 1,000 mg PO TID PRN (Reason: augustin) 7 Days Qty: 42 0RF ibuprofen 800 mg tablet 800 mg PO TID PRN (Reason: pain) 7 Days Qty: 21 0RF propranolol 10 mg tablet 10 mg PO TID PRN (Reason: tremors) Qty: 270 1RF paroxetine HCl 40 mg tablet 40 mg PO DAILY Qty: 90 1RF atorvastatin [Lipitor] 80 mg tablet 80 mg PO QHS Qty: 90 1RF amlodipine 10 mg tablet 10 mg PO DAILY Qty: 90 1RF losartan 100 mg tablet 100 mg PO DAILY Qty: 90 1RF potassium chloride [K-Tab] 20 mEq tablet extended release 20 meq PO DAILY Qty: 90 0RF Follow-up/Referrals: Joan Rojas DO [Primary Care Provider, Family Practice] Ernst Calloway MD [Physician, General Surgery]
[2024-11-02 19:42] LABS: Add Urine Microscopic? YES; Appearance Urine Cloudy (Clear); Glucose Urine UA Negative (Negative); Leukocyte Esterase Ur 1+ LEU/UL (Negative); Nitrate Urine Negative (Negative); Non Pathogenic Casts 0-2; Specific Grav Ur 1.010 (1.001-1.035)
--- OUTSIDE RECORDS SUMMARY | 2024-11-02 19:43 | XMS_ITS | Encounter Summary ---
Author Organization [facility] Address [address] [place] [address] Care Team Providers Care Software Project Lead Name Role Phone Nola Franklin BENDING FRAME OPERATOR-BC Primary Care Provider [phone] Rigoberto Crystal L BENDING FRAME OPERATOR-BC Primary Care Provider [phone] Rigoberot Crystal L BENDING FRAME OPERATOR-BC Unavailable [phone] Jim White MD Unavailable [phone] Joan Rojas DO Primary Care Provider [phone] Encounter Details Date Type Department Care Team (Late st Contact Info) Description 01/17/2019 Hospital Follow-up Call [facility] Clinical Decision Unit [place], [place] [id number] Lan Arreola, [place] Social History Tobacco [...] 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 Answer Date of Assessment Author Status No 01/15/2019 7:00 AM OXYACETYLENE BURNER Activ e * Do you have serious [...] documented as of this encounter Care Teams Software Project Lead Relationship Specialty Start Date End Date Nola Franklin FNP-BC PCP - General NURSE PRACTITIONER 11/02/18 05/18/20 Nola Franklin FNP-BC PCP - General NURSE PRACTITIONER 05/19/20 06/20/24 Joan Rojas DO [address] [place] [address] [place] [address] PCP - General FAMILY PRACTICE 06/21/24 Nola Franklin, [facility]- NURSE PRACTITIONER 05/19/20 Jim White MD [address] [place] [address] [place] Student Recruiter INTERVENTIONAL CARDIOLOGY 02/21/19 documented as of this encounter
--- OUTSIDE RECORDS SUMMARY | 2024-11-02 19:44 | XMS_ITS | Encounter Summary ---
Author Organization [facility] Address [address] [place] [address] Phone Care Team Providers Care Information Receptionist Name Role Phone RigobertoNola HUMAN RESOURCES MANAGER MANUFACTURING Unavailable [phone] Doreen Mejía HUMAN RESOURCES MANAGER MANUFACTURING Primary Care Provider [phone] No, Physician Primary Care Provider [phone] Encounter Details Date Type Department Care Team (Late st Contact Info) Description 10/29/2020 Telephone [facility] Oncology [address] [facility] Advanced Medicine 7th [place] [address] [place] [address] Wendy Ng Social History Tobacco Use Types Packs/Day Years Used Date Smoking Tobacco: Every Day Cigarettes Alcohol Use Standard Drinks/Week Comments Not Currently 0 (1 standard drink = 0.6 oz pur e alcohol) Comments Unknown Sex and Gender Information Value Date Recorded Sex Assigned at Not on file Legal Sex Female 7:06 PM DELIVERY ROOM SUPERVISOR Gender Identity Not on file Sexual Orientation Not on file documented as of this encounter Plan of Treatment Not on file documented as of this encounter Visit Diagnoses Not on filedocumented in this encounter Additional Health Concerns Infection Onset Date Last Indicated Resolved Time COVID: Suspected 04/06/2023 04/06/2023 04/06/2023 2:38 PM DELIVERY ROOM SUPERVISOR documented as of this encounter Care Teams Information Receptionist Relationship Specialty Start Date End Date Doreen Mejía NP [address] [place] [address] PCP - General Internal Medicine 12/05/20 02/02/24 No, Physician PCP - General 02/03/24 Nola Franklin NP [address] [place] [id number] Nurse Practitioner Nurse Practitioner 11/06/20 12/04/20 documented as of this encounter
--- OUTSIDE RECORDS SUMMARY | 2024-11-02 19:44 | XMS_ITS | Clinical Summary ---
Author Organization [facility] Address [address] [place] [address] Care Team Providers Care Tobacco Scrap Sifter Name Role Phone Nola Franklin ADJUSTER AND INSPECTOR-BC Unavailable [phone] Jim White MD Unavailable [phone] Joan Rojas DO Primary Care Provider [phone] Allergies Active Allergy Reactions Criticality Noted Date [...] of aorta Hypertension AARON on CPAP Lymphoma ([facility]/HCC [facility]/HCC) Family History Medical History Relation Comments [...] drink = 0.6 oz pur e alcohol) [facility] Utilities Answer Date Recorded In the past 12 months has [facility] [employer], [employer], or [employer] threatened to shut off services in your [...] any time in the past 12 m [facility], were you homeless or living in a chcf (including now)? 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
--- OUTSIDE RECORDS SUMMARY | 2024-11-02 19:44 | XMS_ITS | Clinical Summary ---
Author Organization [facility] Care Team Providers Care Coal Passer Name Role Phone No, Physician Primary Care Provider [phone] Allergies Active Allergy Reactions Criticality Noted Date [...] on file Legal Sex Female 7:06 PM SEED ANALYST Gender Identity Not on file Sexual Orientation Not on file Obstetrics History Last Filed Vital Signs Vital Sign Reading Time Taken Comments Blood Pressure 126/73 02/03/2024 2:00 PM SEED ANALYST Pulse 79 02/03/2024 2:00 PM SEED ANALYST Temperature 36.8 C (98.3 F) 02/03/2024 11:22 AM SEED ANALYST Respiratory Rate 17 02/03/2024 11:2 2 AM SEED ANALYST Oxygen Saturation 94% 02/03/2024 2:00 PM SEED ANALYST Inhaled Oxygen Concentration - - Weight 58.5 kg (128 lb 14.4 oz) 01/07/2024 4:14 PM SEED ANALYST Height 157.5 cm (5' 2.01) 01/07/2024 4:14 PM CS T Body Mass Index 23.57 01/07/2024 4:14 PM SEED ANALYST Plan of Treatment Health Maintenance Due Date [...] 08/13/2022, 08/2016 Insurance UHC MEDIC[facility] ADVANTAGE [facility] UHC MEDICARE ADVANTAGE Care Teams Coal Passer Relationship Specialty Start Date End Date No, Physician PCP - General 02/03/24
[2024-11-02 20:01] VITALS: BP 138/80; PULSE 80; RESP 15; TEMP 36.9; O2SAT 94
== END 2024-11-02 20:02 | disposition home or self-care (01) ==
PROVIDERS: Emergency Medicine; Physician Assistant; Emergency Provider Student in an Organized Health Care Education/Training Program; PCP Family Medicine
DX: K42.9 Umbilical hernia without obstruction or gangrene (principal); F17.210 Nicotine dependence, cigarettes, uncomplicated
CPT/HCPCS: 36415; 80053; 81001; 83605; 83690; 85025; 99283